=== PATIENT | male | born 1955 | race Caucasian/White ===

== ENCOUNTER 2023-12-09 11:58 | Outpatient (OUT) | payer MEDICARE, BC, SELFPAY ==
[2023-12-09 12:35] LABS: Basophils Absolute Auto 0.1 10^3/uL (0.0-0.1); Basophils Percent Auto 1.1 % (0.2-2.0); Eosinophils Absolute Auto 0.2 10^3/uL (0.0-0.7); Eosinophils Percent Auto 2.3 % (0.9-7.0); Hematocrit 41.3 % (42.0-54.0); Hemoglobin 12.6 g/dL (14.0-18.0); Immature Granulocytes Abs Auto 0.03 10^3/uL (0.00-0.03); Immature Granulocytes Pct Auto 0.3 % (0.0-0.5); Lymphocytes Absolute Auto 2.6 10^3/uL (1.2-3.8); Lymphocytes Percent Auto 25.7 % (20.5-60.0); Mean Corpuscular HGB Conc 30.5 g/dL (29.9-35.2); Mean Corpuscular Hemoglobin 27.9 pg (25.9-34.0); Mean Corpuscular Volume 91.6 fL (80.0-94.0); Mean Platelet Volume 10.9 fL (9.5-13.5); Monocytes Absolute Auto 0.6 10^3/uL (0.3-0.8); Monocytes Percent Auto 5.6 % (1.7-12.0); Neutrophils Absolute Auto 6.5 10^3/uL (1.4-6.5); Platelet Count 224 10^3/uL (150-450); Red Blood Count 4.51 10^6/uL (4.70-6.10); Red Cell Distribution Width 14.5 % (11.0-15.0)
[2023-12-09 12:40] LABS: Creatinine Urine Random 214.48 mg/dL (20.00-300.00); Microalbum Creatinine Ratio Ur 27.5 mg/g (0.0-29.9); Microalbumin Urine Random 5.9 mg/dL (<=30.0)
[2023-12-09 14:30] LABS: Prostate Specific Antigen Dx 0.33 ng/mL (<=4.00)
[2023-12-09 15:24] LABS: Anion Gap 12.9; Carbon Dioxide 27.3 mmol/L (21.0-32.0); Chloride 107 mmol/L (98-107); Potassium 4.2 mmol/L (3.5-5.1); Sodium 143 mmol/L (136-145)
[2023-12-09 15:25] LABS: Alanine Aminotransferase 45 U/L (16-63); Albumin Globulin Ratio 0.8; Albumin Level 3.6 g/dL (3.4-5.0); Alkaline Phosphatase 58 U/L (46-116); Aspartate Amino Transferase 24 U/L (15-37); Bilirubin Total 0.3 mg/dL (0.2-1.0); Calcium 9.2 mg/dL (8.5-10.1); Chol HDL Ratio 3.5; Cholesterol 154 mg/dL (<=200); Estimated GFR (African America >60 (>=60); Estimated GFR (Non-African Ame 57 (>=60); Globulin 4.5 g/dL; Glucose 105 mg/dL (74-106); HDL Cholesterol 44 mg/dL (40-60); TSH W/ REFLEX FT4 1.395 uIU/mL (0.358-3.740); Total Protein 8.1 g/dL (6.4-8.2); Triglycerides 98 mg/dL (<=150); VLDL CHOLESTEROL 19.6 mg/dL
== END 2023-12-09 11:59 | disposition home or self-care (01) ==
LOC: LAB 12:01
PROVIDERS: PCP Internal Medicine; Visit Provider Internal Medicine
DX: E11.59 Type 2 diabetes mellitus with other circulatory complications (principal); E66.01 Morbid (severe) obesity due to excess calories; Z68.41 Body mass index [BMI] 40.0-44.9, adult; N18.31 Chronic kidney disease, stage 3a; Z95.1 Presence of aortocoronary bypass graft; Z12.5 Encounter for screening for malignant neoplasm of prostate
CPT/HCPCS: 36415; 80053; 80061; 82043; 82570; 84153; 84443; 85025

== ENCOUNTER 2024-06-21 12:45 | Outpatient (OUT) | payer MEDICARE, BC, SELFPAY ==
--- OUTSIDE RECORDS SUMMARY | 2024-06-21 13:04 | XMS_ITS | CCD ---
Author Organization [facility] Care Team Providers Care Wound/Ostomy Nurse Name Role Phone PHYSICIAN, DEFAULT Admitting Unavailable PHYSICIAN, DEFAULT Attending Unavailable PHYSICIAN, DEFAULT Admitting Unavailable PHYSICIAN, DEFAULT Attending Unavailable PHYSICIAN, DEFAULT Admitting Unavailable PHYSICIAN, DEFAULT Attending Unavailable PHYSICIAN, DEFAULT Admitting Unavailable PHYSICIAN, DEFAULT Attending Unavailable PHYSICIAN, DEFAULT Admitting Unavailable PHYSICIAN, DEFAULT Attending Unavailable BENJI ROSA Primary Care Physician FADYHAWYadira, DR RODRIGUEZ Attending Unavailable ELTAHAWY, DR RODRIGUEZ Admitting Unavailable KELSEY, DR NORMAN Primary Care Unavailable HORTON, DR GEOFFREY Edmond Consulting Unavailable ELTAHAWY, DR RODRIGUEZ Consulting Unavailable ELTAHAWY, DR RODRIGUEZ Attending Unavailable ELTAHAWY, DR RODRIGUEZ Admitting Unavailable KELSEY, DR NORMAN Primary Care Unavailable KELSEY, DR NORMAN Consulting Unavailable ELTAHAWY, DR RODRIGUEZ Attending Unavailable ELTAHAWY, DR RODRIGUEZ Admitting Unavailable KELSEY, DR NORMAN Primary Care Unavailable ELTAHAWYadira, DR RODRIGUEZ Consulting Unavailable ELTAHAWY, DR RODRIGUEZ Consulting Unavailable ELTAHAWY, DR RODRIGUEZ Attending Unavailable ELTAHAWY, DR RODRIGUEZ Admitting Unavailable KELSEY, DR NORMAN Primary Care Unavailable Benji Rosa MD Primary Care Provider Ginger Simmons Admitting Unavailable Ginger Simmons Attending Unavailable Ginger Simmons Attending Unavailable Ginger Simmons Attending Unavailable Ginger Simmons Admitting Unavailable Ginger Simmons Attending Unavailable BENJI ROSA Attending Unavailable BENJI ROSA Attending Unavailable BENJI ROSA Attending Unavailable ROMINA SANDOVAL Referring Unavailable ELTAHAWYadira, ROMINA Attending Unavailable Allergies Allergy Classification Reported Allergen(s) Allergy Type Date of Onset Reaction(s) Facility (8 sources) Amoxicillin; Translations: [amoxicillin] Drug Allergy Eruption due to drug (disorder) [facility] (9 sources) meloxicam; Translations: [meloxicam] Drug Allergy 9 Rash [facility] (8 sources) Penicillin; Translations: [penicillin] Drug Allergy rash [facility] (1 source) meloxicam Drug Allergy [facility] (2 sources) Penicillins; Translations: [PENICILLINS] Drug allergy (disorder) 9 [facility] (5 sources) meloxicam Drug Allergy 9 Unknown, Rash [facility] (5 sources) Penicillins Drug Intolerance 9 Rash, Unknown [facility] Medications Current Medications Medication Drug Class(es) Dates Sig (Normalized) Sig (Original) apixaban 5 mg oral tablet (12 sources) Factor Xa Inhibitor Start: 01-03-2020 End: 12-06-2024 take 1 tablet by mouth twice daily Eliquis 5 mg oral tablet 5 mg = 1 tab(s), Oral, BID, Refills(s) 0, Blood Thinner Start Date: 01/03/20 Status: Ordered aspirin 81 mg delayed release oral tablet (4 sources) Platelet Aggregation Inhibitor, Nonsteroidal Anti-inflammatory Drug End: 12-09-2023 take 1 tablet by mouth every other day aspirin 81 MG EC tablet Take 81 mg by mouth every other day 0 12/09/2023 Discontinued (Therapy completed) bifidobacterium infantis 4 mg oral capsule (4 sources) Start: 12-30-2023 take 1 capsule by mouth once daily Align 4 mg oral capsule 4 mg = 1 cap(s), Oral, Daily, # 28 cap(s), Refills(s) 4, Pharmacy: [facility]/pharmacy #[id number], 167, cm, 12/30/23 9:02:00 EST, Height/Length Dosing, 123, kg, 12/30/23 9:02:00 EST, Weight Dosing Start Date: 12/30/23 Status: Ordered cholestyramine resin 4000 mg powder for oral suspension (4 sources) Bile Acid Sequestrant Start: 12-30-2023 Questran 4 g/9 g oral powder = 1 packet(s), Oral, Daily, # 60 EA, Refills(s) 2, Pharmacy: [facility]/pharmacy #[id number], 167, cm, 12/30/23 9:02:00 EST, Height/Length Dosing, 123, kg, 12/30/23 9:02:00 EST, Weight Dosing Start Date: 12/30/23 Status: Ordered 24 hr dilTIAZem hydrochloride 240 mg extended release oral capsule (12 sources) Calcium Channel Yvan Start: 02-03-2023 take 1 capsule by mouth every twenty-four hours in the morning dilTIAZem ER (Tiazac) 240 MG 24 hr capsule Take 240 mg by mouth in the morning. 0 02/03/2023 Active Start: 01-03-2020 Cardizem CD 24 0 mg/24 hours Cap-ER 240 mg = 1 cap(s), Oral, Daily, Refills(s) 0, Other (see comment) Start Date: 01/03/20 Status: Ordered Start: 01-03-2020 take 1 capsule by mo [facility] once daily Cardizem CD 240 mg/24 hours Cap-ER mg cap(s), Oral, Daily, Refills(s) 0, Other (see comment) Start Date: 01/03/20 Status: Ordered famotidine 20 mg oral tablet (12 sources) Histamine-2 Receptor Antagonist Start: 05-17-2020 take 1 tablet by mouth once daily as needed famotidine 20 mg Tab 20 mg = 1 tab(s), Oral, Daily, PRN Control of stomach acid, Control of stomach acid Start Date: 05/17/20 Status: Ordered furosemide 20 mg oral tablet (19 sources) Loop Diuretic Start: 02-03-2023 take 1 tablet by mouth in the morning furosemide (Lasix) 20 MG tablet Take 20 mg by mouth in the morning. 0 02/03/2023 Active Start: 05-27-2020 Lasix 40 mg Ta b 20 mg = 0.5 tab(s), Oral, qPM, diuretic/water pill Start Date: 05/27/20 Status: Ordered Start: 01-03-2020 take 1 tablet by donna once daily Lasix 40 mg Tab 40 mg = 1 tab(s), Oral, Daily, Refills(s) 0, diuretic/water pill Start Date: 01/03/20 Status: Ordered latanoprost 0.05 mg/ml ophthalmic solution (5 sources) Prostaglandin Analog Start: 11-04-2023 take 1 drop(s) into the eye(s) at bedtime latanoprost (Xalatan) 0.005 % ophthalmic solution Administer 1 drop into both eyes at bedtime 0 11/04/2023 Active metFORMIN hydrochloride 500 mg / SITagliptin 50 mg oral tablet (5 sources) Biguanide, Dipeptidyl Peptidase 4 Inhibitor SITagliptin-metFORMI N (Janumet) 50-500 MG tablet every 12 (twelve) hours. 0 Active polyethylene glycol 3350 281494 mg / potassium chloride 1480 mg / sodium bicarbonate 5720 mg / sodium chloride 28937 mg powder for oral solution (2 sources) Osmotic Laxative Start: 10-28-2022 NuLYTELY Jesus oral powder for reconstitution See Instructions, 1 EA, Refill(s) 0, See physician instructions prior to colonoscopy., [facility]/pharmacy #[id number], 168.9, cm, 10/28/22 8:24:00 EST, Height/Length Dosing, 115.4, kg, 10/28/22 8:24:00 EST, Weight Dosing Start Date: 10/28/22 Status: Ordered rosuvastatin calcium 10 mg oral tablet (7 sources) HMG-CoA Reductase Inhibitor Start: 01-03-2020 take 1 tablet by mouth once daily Crestor 10 mg Tab 10 mg = 1 tab(s), Oral, Daily, Refills(s) 0, High cholesterol Start Date: 01/03/20 Status: Ordered simvastatin 40 mg oral tablet (5 sources) HMG-CoA Reductase Inhibitor Start: 03-23-2023 take 1 tablet by mouth at bedtime simvastatin (Zocor) 40 MG tablet Indications: Pure hypercholesterolemia (CMS/HCC) Take 1 tablet (40 mg) by mouth at bedtime. 100 tablet 4 03/23/2023 Active traZODone hydrochloride 50 mg oral tablet (12 sources) Serotonin Reuptake Inhibitor Start: 10-04-2023 traZODone (Desyrel) 50 MG tablet Indications: Persistent insomnia TAKE 1/2 TABLET AT BEDTIME 45 tablet 3 10/04/2023 Active Start: 10-28-2022 take 1 tablet by donna once daily at bedtime traZODONE 50 mg Tab 50 mg = 1 tab(s), Oral, Once a day (at bedtime), Refills(s) 0, Depression Start Date: 10/28/22 Status: Ordered zolpidem tartrate 10 mg oral tablet (12 sources) gamma-Aminobutyric Acid-ergic Agonist Start: 01-03-2020 take 1 tablet by mouth once daily at bedtime as needed for sleep Ambien 10 mg Tab 10 mg = 1 tab(s), Oral, Once a day (at bedtime), PRN for sleep, Refills(s) 0 Start Date: 01/03/20 Status: Ordered Completed/Discontinued Medications Medication Drug Class(es) Dates Sig (Normalized) Sig (Original) potassium chloride 10 meq extended release oral capsule (12 sources) Start: 01-03-2020 take 1 capsule by mouth once daily potassium chloride 10 mEq Cap-ER 10 mEq = 1 cap(s), Oral, Daily, Refills(s) 0, Prophylaxis Start Date: 01/03/20 Status: Ordered potassium chlori de CR (Klor-Con M10) 10 MEQ ER tablet Take 10 mEq by mouth in the morning. 0 Active Problems Active Problems Problem Classification Problem Date Documented Da te Episodic/Chronic Cardiac dysrhythmias (12 sources) Atrial fibrillation; Translations: [Paroxysmal atrial fibrillation] Onset: 3 05-17-2020 Chronic Chronic kidney disease (14 sources) Chronic kidney disease stage 3; Translations: [Chronic kidney disease stage 3A ] Onset: 3 06-12-2020 Chronic Coronary atherosclerosis and other heart disease (20 sources) Coronary arteriosclerosis; Translations: [Atherosclerotic heart disease of [place] coronary artery without angina pectoris] Onset: 9 Resolved: 4 05-27-2020 Chronic Diabetes mellitus with complications (7 sources) Type 2 diabetes mellitus; Translations: [Type 2 diabetes mellitus with other circulatory complications] Onset: 3 03-23-2023 Chronic Diabetes mellitus without complication (7 sources) Diabetes mellitus 01-03-2020 Chronic Disorders of lipid metabolism (14 sources) Hypercholesterolemia; Translations: [Pure hypercholesterolemia] Onset: 3 01-03-2020 Chronic Diverticulosis and diverticulitis (10 sources) Diverticulosis of colon; Translations: [Diverticulosis of large intestine without perforation or abscess without bleeding] Onset: 8 03-23-2023 Chronic Esophageal disorders (14 sources) Gastroesophageal reflux disease without esophagitis; Translations: [Gastro-esophageal reflux disease without esophagitis] Onset: 1 Chronic Gastrointestinal hemorrhage (15 sources) Hemorrhage of rectum and anus; Translations: [Hemorrhage of anus and rectum] Onset: 3 Episodic Genitourinary symptoms and ill-defined conditions (20 sources) Increased frequency of urination; Translations: [Microscopic hematuria] Onset: 3 06-12-2020 Episodic Glaucoma (12 sources) Glaucoma; Translations: [Unspecified glaucoma] Onset: 3 01-03-2020 Chronic Heart valve disorders (8 sources) Rheumatic disorders of both mitral and aortic valves; Translations: [Non-rheumatic mitral regurgitation ] Onset: 3 12-07-2023 Chronic Heart valve disorders (7 sources) Heart murmur 01-03-2020 Episodic Hemorrhoids (12 sources) Hemorrhoids; Translations: [Unspecified hemorrhoids] Onset: 3 Episodic Neoplasms of unspecified nature or uncertain behavior (7 sources) Adrenal incidentaloma 06-12-2020 Episodic Osteoarthritis (12 sources) Arthritis; Translations: [Unspecified osteoarthritis, unspecified site] Onset: 3 01-03-2020 Chronic Other acquired deformities (5 sources) Equinus contracture of the ankle; Translations: [Contracture, unspecified ankle] Onset: 3 03-23-2023 Chronic Other aftercare (3 sources) Long-term current use of anticoagulant; Translations: [long term acute care registered nurse (current) use of anticoagulants] Onset: 3 Episodic Other and ill-defined heart disease (7 sources) Heart disease 01-03-2020 Chronic Other and unspecified benign neoplasm (13 sources) History of polyp of colon; Translations: [Personal history of colonic polyps] Onset: 3 10-15-2022 Episodic Other and unspecified benign neoplasm (8 sources) Polyp of colon; Translations: [Polyp of colon] Onset: 3 Episodic Other ear and sense organ disorders (5 sources) Otitis externa; Translations: [Unspecified otitis externa, unspecified ear] Onset: 3 03-23-2023 Chronic Other ear and sense organ disorders (5 sources) Sensorineural hearing loss, bilateral; Translations: [Sensorineural hearing loss, bilateral] Onset: 3 03-23-2023 Chronic Other endocrine disorders (5 sources) Adrenal incidentaloma; Translations: [Other specified disorders of adrenal gland] Onset: 3 12-07-2023 Chronic Other gastrointestinal disorders (1 source) Intestinal malabsorption; Translations: [Intestinal malabsorption, unspecified] Onset: 4 Chronic Other gastrointestinal disorders (10 sources) H/O: gastrointestinal disease; Translations: [Personal history of other diseases of the digestive system] Onset: 4 10-15-2022 Episodic Other gastrointestinal disorders (7 sources) History of diverticulitis 10-15-2022 Episodic Other gastrointestinal disorders (7 sources) History of gastroesophageal reflux disease 10-15-2022 Episodic Other gastrointestinal disorders (1 source) Angiodysplasia of colon; Translations: [Angiodysplasia of colon without hemorrhage] Onset: 3 Episodic Other gastrointestinal disorders (1 source) Diarrhea; Translations: [Diarrhea, unspecified] Onset: 4 Episodic Other gastrointestinal disorders (1 source) Altered bowel function; Translations: [Change in bowel habit] Onset: 4 Episodic Other lower respiratory disease (4 sources) Shortness of breath; Translations: [SHORTNESS OF BREATH] Onset: 3 Episodic Other lower respiratory disease (1 source) Dyspnea, unspecified; Translations: [DYSPNEA UNSPECIFIED] Onset: 3 Episodic Other nervous system disorders (5 sources) Carpal tunnel syndrome; Translations: [Carpal tunnel syndrome, unspecified upper limb] Onset: 3 03-23-2023 Chronic Other nutritional; endocrine; and metabolic disorders (5 sources) Severe obesity; Translations: [Morbid (severe) obesity due to excess calories] Onset: 4 12-09-2023 Chronic Other nutritional; endocrine; and metabolic disorders (1 source) Metabolic syndrome X; Translations: [Metabolic syndrome] Onset: 4 Chronic Other upper respiratory disease (5 sources) Chronic rhinitis; Translations: [Chronic rhinitis] Onset: 3 03-23-2023 Chronic Other upper respiratory disease (5 sources) Seasonal allergic rhinitis; Translations: [Other seasonal allergic rhinitis] Onset: 3 03-23-2023 Chronic Poisoning by other medications and drugs (7 sources) Loop diuretic adverse reaction 06-12-2020 Episodic Residual codes; unclassified (7 sources) Sleep apnea 05-27-2020 Chronic Comment on above: uses CPAP Residual codes; unclassified (5 sources) Obstructive sleep apnea syndrome; Translations: [Obstructive sleep apnea (adult) (pediatric)] Onset: 3 03-23-2023 Chronic Residual codes; unclassified (7 sources) Creatinine level - finding 06-12-2020 Episodic Screening and history of mental health and substance abuse codes (12 sources) Ex-smoker; Translations: [Personal history of nicotine dependence] Onset: 3 04-17-2020 Episodic Unclassified (7 sources) Drug therapy finding 06-12-2020 Past or Other Problems Problem Classification Problem Date Documented Date Episodic/Chronic Other aftercare (5 sources) Drug therapy finding; Translations: [MCFP (current) use of anticoagulants] Onset: 11-02-2022 12-07-2023 Episodic Other ear and sense organ disorders (5 sources) Bilateral tinnitus; Translations: [Tinnitus, bilateral] Onset: 03-23-2023 03-23-2023 Episodic Other ear and sense organ disorders (5 sources) Tinnitus; Translations: [Tinnitus, unspecified ear] Onset: 03-23-2023 03-23-2023 Episodic Other lower respiratory disease (1 source) Other forms of dyspnea; Translations: [OTHER FORMS OF DYSPNEA] Onset: 11-16-2022 Episodic Other screening for suspected conditions (not mental disorders or infectious disease) (7 sources) Cardiovascular stress test abnormal; Translations: [Abnormal result of other cardiovascular function study] Onset: 12-16-2018 12-07-2023 Episodic Sarah-; endo-; and myocarditis; cardiomyopathy (except that caused by tuberculosis or sexually transmitted disease) (5 sources) Pericardial effusion; Translations: [Pericardial effusion without cardiac tamponade] Onset: 08-08-2019 12-07-2023 Episodic Residual codes; unclassified (5 sources) Edema of lower extremity; Translations: [Localized edema] Onset: 03-23-2023 03-23-2023 Episodic Residual codes; unclassified (5 sources) Persistent insomnia; Translations: [Insomnia, unspecified] Onset: 07-16-2008 03-23-2023 Episodic Results Test Name Value Interpretation Reference Range Facility Office Visiton 05-29-2024 Follow-up visit [id number] Celestino Patton Bryn 1955 M Date Provider Department Center 05/29/2024 [id number] ROMINA SAILAJA Aleman Family History Problem Relation Age of Onset Coronary artery disease Mother Diabetes Father Family Status - Relation Status Age at Mother Father Level of Service:11498 [place] OFFICE/OUTPATIENT ESTABLISHED MOD MDM 30 MIN Normal [facility] Gastroenterology Office/Clin ic Noteon 02-10-2024 Gastroenterology Office/Clinic Note Chief Complaint diarrhea - is now having more constipation HPI Staff This is a 68 year old male who presents today for a follow-up from 12/30/23 office visit and lab results No longer having diarrhea - he states it is starting to get hard and feels more bound up . Still taking Eliquis daily. Stool Testin01/18/2024 Fecal WBC Lactoferrin * Negative Reference Laboratory Testing Antigliadin IgA * 6 unit(s) Antigliadin IgG * 4 unit(s) Calprotectin, Fecal * 18 mcg/gm Endomysial Antibody IgA Negative IgA Quant * 296 mg/dL Ova/Para Exam Rt * Final report Result 1 * Comment Pancreatic Elastase, Fecal * 250 t-Transglutaminase IgA * <2 unit/mL t-Transglutaminase IgG * 4 unit/mL Molecular Diagnostics Campylobacter group * Not Detected Salmonella species * Not Detected Shigella species Not Detected Shiga Toxin 1 Not Detected Shiga Toxin 2 Not Detected Shiga Tox Interp Negative Vibrio Group Not Detected Rotavirus A Not Detected Norovirus GI/GII Not Detected Yersinia enterocolitica Not Detected Cdiff Specimen Acceptable Unacceptable Order Cancelled YES Celiac Panel Antigliadin IgA: 6 (12/30/23) Antigliadin Ig (12/30/23) Endomysial Antibody IgA: Negative (12/30/23) IgA Quant: 296 (12/30/23) t-Transglutaminase IgA: <2 (12/30/23) t-Transglutaminase Ig (12/30/23) Dr Simmons Assessment/Plan: 12/30/2023 1. 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 Anticoagulated (Z79.01: MCFP (current) use of anticoagulants) 3. Colon polyps (K63.5: Polyp of colon) 4. Hemorrhoids (K64.9: Unspecified hemorrhoids) 5. History of diverticulitis of colon, (Z87.19: Personal history of other diseases of the digestive system)History of esophageal reflux 7. Metabolic syndrome (E88.810: Metabolic syndrome) Diarrhea, unspecified (R19.7: Diarrhea, unspecified) Orders: bifidobacterium infantis, 4 mg = 1 cap(s), Oral, Daily, # 28 cap(s), Refills(s) 4, Pharmacy: [facility]/pharmacy #[id number], 167, cm, 12/30/23 9:02:00 EST, Height/Length Dosing, 123, kg, 12/30/23 9:02:00 EST, Weight Dosing cholestyramine, = 1 packet(s), Oral, Daily, # 60 EA, Refills(s) 2, [id number] 167, cm, 12/30/23 9:02:00 EST, Height/Length Dosing, 123, kg, 12/30/23 9:02:00 EST, Weight Dosing Start Questran once a day and titrate up to twice a day. Advised to space it out from other medications by 4 hours probiotics daily Check celiac panel, ova and parasites in the stool, C. difficile, stool calprotectin, pancreatic elastase, and stool lactoferrin Might benefit from a course of rifaximin and if he does not respond Advised to use Imodium as needed Advised to work on losing weight and eating healthy History of Present Illness I have reviewed HPI staff note, most recent labs and imaging, more than 30 minutes spent reviewing the chart, during encounter, placing orders and counseling the patient. Pt is doing well diarrhea resolved but getting some constipation on align and questran moves his bowels once every day or other day Review of Systems PHQ Score Initial Depression Screen Score: 0 SCORE All systems reviewed, negative except as mentioned above Physical Exam Vitals & Measurements HR: 76(Peripheral) BP: 122/70 HT: 66 in HT: 167 cm WT: 124 kg WT: 272.8 lb BMI: 44.46 General: alert, no acute distress HEENT: atraumatic normocephalic Cardiovascular: regular rate and rhythm, normal peripheral perfusion Respiratory: Lungs CTA, respirations non labored Extremities: no deformity, no trauma Abdomen: Benign, soft, nontender nondistended Assessment/Plan 1. Anticoagulated (Z79.01: long term acute care registered nurse (current) use of anticoagulants) 2. Acid reflux (K21.9: Gastro-esophageal reflux disease without esophagitis) 3. Colon polyps (K63.5: Polyp of colon) 4. History of colon polyps (Z86.010: Personal history of colonic polyps) 5. History of diverticulosis (Z87.19: Personal history of other diseases of the digestive system) 6. Altered bowel habits (R19.4: Change in bowel habit) Advised the patient to cut down the dose of Questran to every other day Continue align Follow-up No qualifying data available Problem List/Past Medical History Ongoing Acid reflux Adrenal incidentaloma Anticoagulated Apnea, sleep Arthritis CAD (coronary artery disease) CKD (chronic kidney disease), stage III Colon polyps Diabetes Former smoker Glaucoma Heart disease Heart murmur Hemorrhoids High cholesterol High creatinine History of colon polyps History of diverticulitis of colon History of diverticulosis History of esophageal reflux Loop diuretic causing adverse effect in therapeutic use Microhematuria Microscopic hematuria Nocturia Rectal bleeding Urinary complication Urinary frequency Urinary urgency Historical A-fib Bleeding per rectum Procedure/Surgical History Colonoscopy (12/07/2022), Cystoscopy (05/27/2020), Cardiac catheterisation (12/15 (more content not included)... Normal [facility] Comment on above: Result Comment: Elec tronically Signed By: Troy HOLDEN, Ginger Abebe\.br\Date and Time Signed: 02/10/24 08:53 EDT O & P EXAM, ROUTINE, REFLEXo n 01-27-2024 Ova and parasites identified Concentration Nom (Stl) Comment Invalid Interpretation Code [facility] Comment on above: Result Comment: No o va, cysts, or parasites seen. One negative specimen does not rule out the possibility of a parasitic infection. Performed at: [facility] [id number] PhD Katelyn Hahn Performed By: #### 3 [id number] ####[facility] [id number] [place] [address] O & P Exam, Routineon 2023 Ova and parasites identified LM Nom (Unsp spec) Final report Invalid Interpretation Code [facility] Comment on above: Result Comment: Thes e results were obtained using wet preparation(s) and trichrome stained smear. This test does not include testing for Cryptosporidium parvum, Cyclospora, or Microsporidia. Performed at: [address] [id number] PhD Katelyn Hahn Performed By: #### 3 [id number] ####[facility] [id number] [place] [address] Pancreatic Elastase, Fecalon 01-27-2024 Elastase.pancreatic (Stl) [Mass/Mass] 250 Invalid Interpretation Code >200 [facility] Comment on above: Result Comment: Kalli re Pancreatic Insufficiency: <100 Moderate Pancreatic Insufficiency: 100 - 200 Normal: >200 Performed at: [address] [id number] MD Parminder Arita Performed By: #### 3 [id number] ####[facility] [id number] [place] [address] Calprotectin, Fecalon 2023 Calprotectin (Stl) [Mass/Mass] 18 mcg/gm Invalid Interpretation Code 0-120 [facility] Comment on above: Result Comment: Conc entration Interpretation Follow-Up < 5 - 50 ug/g Normal None >50 -120 ug/g Borderline Re-evaluate in 4-6 weeks >120 ug/g Abnormal Repeat as clinically indicated Performed at: [address] [id number] MD Parminder Arita Performed By: #### 1 [id number] #### [facility] [address] [place] [address] Enteric Panel by PCRon 01-18 C. coli+jejuni+upsalien sis DNA GHULAM+non-probe Ql (Stl) Not detected Normal [facility] Comment on above: Result Comment: Test ing was performed utilizing reverse room service food server (RT), polymerase chain reaction (PCR), and array hybridization to detect specific gastrointestinal microbial nucleic acid gene sequences associated with the following pathogenic bacteria and viruses:Campylobacter Group (composed of C. coli, C. jejuni, and C. guillermo), Salmonella species, Shigella species (including S. dysenteriae, S. boydii, S. sonnei and S. flexneri), Vibrio Group (composed of V. cholera and V. parahaemolyticus), Yersinia enterocolitica, Norovirus GI/GII, and Rotavirus A. In addition, EPdetects Shiga toxin 1 gene and Shiga toxin 2 gene virulence markers. Shiga toxin producing E. coli (STEC) typically harbor one or both genes that encode for Shiga toxins 1 and 2. Campylobacter group, Salmonella species, Shigella species, Vibrio group, Rotavirus A, Shiga Toxin 1, Shiga Toxin 2, Norovirus GI/GII, and Yersinia enterocolitica were tested by Verigene nulcleic acid test. Performed By: #### 3 [id number], [id number], [id number], [id number], [id number], [id number] ####[facility] [address] [place] [address] E. coli stx1+stx2 genes GHULAM+non-probe Ql (Stl) Negative Normal [facility] Comment on above: Performed By: #### 3 [id number], [id number], [id number], [id number], [id number], [id number] ####[facility] [address] [place] [address] Enteric Panel by PCR Negative Normal [facility] Enteric Panel Intrl QC Pass Normal [facility] Comment on above: Result Comment: Test ing was performed utilizing reverse room service food server (RT), polymerase chain reaction (PCR), and array hybridization to detect specific gastrointestinal microbial nucleic acid gene sequences associated with the following pathogenic bacteria and viruses:Campylobacter Group (composed of C. coli, C. jejuni, and C. guillermo), Salmonella species, Shigella species (including S. dysenteriae, S. boydii, S. sonnei and S. flexneri), Vibrio Group (composed of V. cholera and V. parahaemolyticus), Yersinia enterocolitica, Norovirus GI/GII, and Rotavirus A. In addition, EPdetects Shiga toxin 1 gene and Shiga toxin 2 gene virulence markers. Shiga toxin producing E. coli (STEC) typically harbor one or both genes that encode for Shiga toxins 1 and 2. Performed By: #### 3 [id number], [id number], [id number], [id number], [id number], [id number] ####[facility] [address] [place] [address] Norovirus genogroup I+II RNA GHULAM+non-probe Ql (Stl) Not detected Normal [facility] Comment on above: Performed By: #### 3 [id number], [id number], [id number], [id number], [id number], [id number] ####[facility] [address] [place] [address] Rotavirus A RNA GHULAM+non-probe Ql (Stl) Not detected Normal [facility] Comment on above: Performed By: #### 3 [id number], [id number], [id number], [id number], [id number], [id number] ####[facility] [address] [place] [id number] S. enterica+bongori DNA GHULAM+non-probe Ql (Stl) Not detected Normal [facility] Comment on above: Result Comment: This test result should be correlated with clinical presentations and medical history by a healthcare provider to determine its clinical significance. Performed By: #### 3 [id number], [id number], [id number], [id number], [id number], [id number] ####[facility] [address] [place] [address] Shigella species+EIEC invasion plasmid antigen H ipaH gene GHULAM+non-probe Ql (Stl) Not detected Normal [facility] Comment on above: Performed By: #### 3 [id number], [id number], [id number], [id number], [id number], [id number] ####[facility] [address] [place] [address] V. cholerae+parahaemoly ticus+vulnificus DNA GHULAM+non-probe Ql (Stl) Not detected Normal [facility] Comment on above: Performed By: #### 3 [id number], [id number], [id number], [id number], [id number], [id number] ####[facility] [address] [place] [address] Y. enterocolitica DNA GHULAM+non-probe Ql (Stl) Not detected Normal [facility] Comment on above: Performed By: #### 3 [id number], [id number], [id number], [id number], [id number], [id number] ####[facility] [address] [place] [address] CDiff PCRon 01-18-2024 C. difficile toxin A+B Ql (Stl) YES Normal [facility] Comment on above: Performed By: #### 3 [id number], [id number], [id number], [id number], [id number], [id number] #### [facility] [address] [place] [address] CDiff PCR Unable to perform test due to consistency of stool. C. Difficile testing will only be performed on diarrheal (unformed) stool unless ileus due to C. difficile is expected. Reference: Clinical Practice Guidelines for Clostridium difficile Infection in Adults, Infection and Hospital Epidemiology February 2010, Vol 31, No 5. Normal [facility] Fecal WBC Lactoferrinon 12-24 Lactoferrin Ql (Stl) Negative Normal Negative [facility] Comment on above: Result Comment: The semi-quantitative detection of elevated levels of fecal lactoferrin is a marker for fecal leukocytes and an indication of intestinal inflammation. Performed By: #### 3 [id number], [id number], [id number], [id number], [id number], [id number] #### [facility] [address] [place] [address] MICRO OTHER TESTSOrdered By: Jacqueline Frias on 01-18-2024 Lactoferrin Ql (Stl) Negative 1 (01/18/24 2:45 PM) Normal Negative [facility] Comment on above: Interpretive Data: T carol semi-quantitative detection of elevated levels of fecal lactoferrin is a marker for fecal leukocytes and an indication of intestinal inflammation. Celiac Disease Comprehensive on 12-31-2023 Endomysium IgA Ql (S) Negative Invalid Interpretation Code Negative [facility] Comment on above: Performed By: #### 1 [id number] #### [facility] [address] [place] [address] Gliadin peptide IgA Qn (S) 6 unit(s) Invalid Interpretation Code 0-19 [facility] Comment on above: Result Comment: Nega tive 0 - 19 Weak Positive 20 - 30 Moderate to Strong Positive >30 Performed By: #### 1 [id number] #### [facility] [address] [place] [address] Gliadin peptide IgG Qn (S) 4 unit(s) Invalid Interpretation Code 0-19 [facility] Comment on above: Result Comment: Nega tive 0 - 19 Weak Positive 20 - 30 Moderate to Strong Positive >30 Performed By: #### 1 [id number] #### [facility] [address] [place] [address] IgA [Mass/Vol] 296 mg/dL Invalid Interpretation Code 61-437 [facility] Comment on above: Result Comment: Perf ormed at: [facility] [address] [id number] PhD Katelyn Hahn Performed By: #### 1 [id number] #### [facility] [address] [place] [address] tTG IgA Qn (S) <2 Invalid Interpretation Code 0-3 [facility] Comment on above: Result Comment: Nega tive 0 - 3 Weak Positive 4 - 10 Positive >10 Tissue Transglutaminase (tTG) has been identified as the endomysial antigen. Studies have demonstr- ated that endomysial IgA antibodies have over 99% specificity for gluten sensitive enteropathy. Performed By: #### 1 [id number] #### [facility] [address] [place] [address] tTG IgG Qn (S) 4 unit/mL Invalid Interpretation Code 0-5 [facility] Comment on above: Result Comment: Nega tive 0 - 5 Weak Positive 6 - 9 Positive >9 Performed By: #### 1 [id number] #### [facility] [address] [place] [address] Ambulatory Visit Summaryon 0 12-30-2023 Ambulatory Visit Summary CELESTINO PATTON Bryn :1955 Visit Date:12/30/2023 Ambulatory Visit Instructions Your Diagnosis Diarrhea due to malabsorption Anticoagulated Colon polyps Hemorrhoids History of diverticulitis of colon, History of esophageal reflux Metabolic syndrome Diarrhea, unspecified Your Care Team Attending Physician - Ginger Simmons MD. Primary Care Physician - BENJI ROSA MD This Is Your Medications List bifidobacterium infantis (Align 4 mg oral capsule) cholestyramine (Questran 4 g/9 g oral powder) Contact prescribing physician if questions or concerns apixaban (Eliquis 5 mg oral tablet) diltiazem (Cardizem CD 240 mg/24 hours Cap-ER) famotidine (famotidine 20 mg Tab) furosemide (Lasix 40 mg Tab) furosemide (Lasix 40 mg Tab) potassium chloride (potassium chloride 10 mEq Cap-ER) rosuvastatin (Crestor 10 mg Tab) trazodone (traZODONE 50 mg Tab) zolpidem (Ambien 10 mg Tab) Procedures Performed Colonoscopy (12/07/2022), Cystoscopy (05/27/2020), Cardiac catheterisation (12/15/2018), Open heart surgery (11/2018), Biliary tract reconstruction (1981), Colonoscopy. Discharge Vitals Heart Rate (Peripheral) 78 Respiratory Rate 16 Blood Pressure 114/75 Height 167 cm Height 66 in Weight 123 kg Weight 270.6 lb BMI 44.1 What to do next Scheduled Follow-Up Appointments 2023 8:15 AM EDT With: Troy HOLDEN, Ginger Abebe Where: [facility] Normal [facility] Consent for Treatmenton Consent for Treatment [phone] #1.00TIFF Normal [facility] Gastroenterology Office/Clin ic Noteon 12-30-2023 Gastroenterology Office/Clinic Note Chief Complaint diarrhea and burping HPI Staff This is a 68 year old male who presents today for a sick call for complaints of diarrhea. Diarrhea: How many BM a day (normal <4): 5-6 times When did it start: Month Constant? Or alternate with normal BM or constipation: Won't go for about two days and then diarrhea. has not tried anything OTC. Associated symptoms: no has been burping a lot more recently. had blood one night, has history of hemorrhoids. Last visit w/ Noemi 12/2022 Assessment/Plan 1. Colon polyps (K63.5: Polyp of colon) Colonoscopy completed 12/07/2022 revealed 2 moderate sized AVMs in cecum and ascending colon that were treated with APC, tubulovillous adenoma and tubular adenoma removed from the ascending colon, tubular adenoma removed from descending colon, hemorrhoids. Educated regarding fiber supplementation daily (metamucil) 1 capsule daily- separate 2 hours from other medications. Patient to have repeat colonoscopy in 3 years?2025. 2. Hemorrhoids (K64.9: Unspecified hemorrhoids) see #1 Last colon 12/07/22 w/ Dr Aguilar Impression and Plan 1. 2 moderate-sized AVMs, in the cecum and proximal ascending, both treated successfully with APC 2. 2 sessile polyps, 5 and 10 mm, in the ascending colon, both removed with cold snare, a mid rectum was placed at the larger polypectomy site 3. Sessile polyp, 5 mm, in the descending colon, removed completely with cold snare 4. Moderate nonbleeding internal hemorrhoids with stigmata of recent bleeding Recommendations: Repeat colonoscopy:: In 3 years, Pending pathology results. History of Present Illness pt with diarrhea half hour after eating comes and goes no triggers ?thought to be related to djiboutian food described as watery stool, 5-6 times a day no stool tests I have reviewed HPI staff note, most recent labs and imaging, more than 30 minutes spent reviewing the chart, during encounter, placing orders and counseling the patient. Review of Systems PHQ Score Initial Depression Screen Score: 0 SCORE All systems reviewed, negative except as mentioned above Physical Exam Vitals & Measurements HR: 78(Peripheral) RR: 16 BP: 114/75 HT: 66 in HT: 167 cm WT: 123 kg WT: 270.6 lb BMI: 44.1 General: alert, no acute distress HEENT: atraumatic normocephalic Cardiovascular: regular rate and rhythm, normal peripheral perfusion Respiratory: Lungs CTA, respirations non labored Extremities: no deformity, no trauma Abdomen: Benign, soft, nontender nondistended Assessment/Plan 1. 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 Anticoagulated (Z79.01: long term acute care registered nurse (current) use of anticoagulants) 3. Colon polyps (K63.5: Polyp of colon) 4. Hemorrhoids (K64.9: Unspecified hemorrhoids) 5. History of diverticulitis of colon, (Z87.19: Personal history of other diseases of the digestive system)History of esophageal reflux 7. Metabolic syndrome (E88.810: Metabolic syndrome) Diarrhea, unspecified (R19.7: Diarrhea, unspecified) Ordered: Calprotectin, Fecal Calprotectin, Fecal Celiac Disease Comprehensive Clostridium Difficile PCR Enteric Panel by PCR Fecal WBC Lactoferrin O & P Exam, Routine Pancreatic Elastase, Fecal Orders: bifidobacterium infantis, 4 mg = 1 cap(s), Oral, Daily, # 28 cap(s), Refills(s) 4, Pharmacy: [facility]/pharmacy #[id number], 167, cm, 12/30/23 9:02:00 EST, Height/Length Dosing, 123, kg, 12/30/23 9:02:00 EST, Weight Dosing cholestyramine, = 1 packet(s), Oral, Daily, # 60 EA, Refills(s) 2, Pharmacy: [facility]/pharmacy #[id number], 167, cm, 12/30/23 9:02:00 EST, Height/Length Dosing, 123, kg, 12/30/23 9:02:00 EST, Weight Dosing Start Questran once a day and titrate up to twice a day. Advised to space it out from other medications by 4 hours probiotics daily Check celiac panel, ova and parasites in the stool, C. difficile, stool calprotectin, pancreatic elastase, and stool lactoferrin Might benefit from a course of rifaximin and if he does not respond Advised to use Imodium as needed Advised to work on losing weight and eating healthy Follow-up No qualifying data available Problem List/Past Medical History Ongoing Acid reflux Adrenal incidentaloma Anticoagulated Apnea, sleep Arthritis CAD (coronary artery disease) CKD (chronic kidney disease), stage III Colon polyps Diabetes Former smoker Glaucoma Heart disease Heart murmur Hemorrhoids High cholesterol High creatinine History of colon polyps History of diverticulitis of colon History of diverticulosis History of esophageal reflux Loop diuretic causing adverse effect in therapeutic use Microhematuria Microscopic hematuria Nocturia Rectal bleeding Urinary complication Urinary frequency Urinary urgency Historical A-fib Bleeding per rectum Procedure/Surgical History Colonoscopy (12/07/2022), Cystoscopy (05/27/2020), Cardiac catheterisation (12/15/2018), Open heart surgery (11/2018), Andrews (more content not included)... Normal [facility] Comment on above: Result Comment: Elec tronically Signed By: Troy HOLDEN, Ginger Abebe\.br\Date and Time Signed: 12/30/23 09:20 EST ALL CBC WITH AUTO DIFFon BASOPHILS ABSOLUTE AUTO 0.1 [facility] Basophils/100 WBC (Bld) 1.1 % 0.2 - 2.0 % [facility] Eosinophils/100 WBC (Bld) 2.3 % 0.9 - 7.0 % [facility] Erythrocyte distribution width (RBC) [Ratio] 14.5 % 11.0 - 15.0 % [facility] Hematocrit (Bld) [Volume fraction] 41.3 % Low 42.0 - 54.0 % [facility] Hemoglobin (Bld) [Mass/Vol] 12.6 g/dL Low 14.0 - 18.0 g/dL [facility] IMMATURE GRANULOCYTES ABS AUTO 0.03 [facility] Immature granulocytes/100 WBC (Bld) 0.3 % 0.0 - 0.5 % [facility] and review of [facility] results Abnormal [facility] LYMPHOCYTES ABSOLUTE AUTO 2.6 [facility] Lymphocytes/100 WBC (Bld) 25.7 % 20.5 - 60.0 % [facility] MCH (RBC) [Entitic mass] 27.9 pg 25.9 - 34.0 pg [facility] MCHC (RBC) [Mass/Vol] 30.5 g/dL 29.9 - 35.2 g/dL [facility] MCV (RBC) [Entitic vol] 91.6 fL 80.0 - 94.0 fL [facility] MONOCYTES ABSOLUTE AUTO 0.6 [facility] Monocytes/100 WBC (Bld) 5.6 % 1.7 - 12.0 % [facility] NEUTROPHILS ABSOLUTE AUTO 6.5 [facility] Neutrophils/100 WBC (Bld) 65.0 % 43.0 - 75.0 % [facility] Platelet mean volume (Bld) [Entitic vol] 10.9 fL 9.5 - 13.5 fL [facility] EO # 0.2 [facility] PLT [address] [facility] RBC 4.51 Low [facility] WBC 10.0 [facility] Laboratory - Hematology and Cell countson 12-09-2023 HbA1c (Bld) [Mass fraction] 6.0 % [facility] No Panel Informationon 12-09 [facility] CBC AUTO DIFFon 03-19-2023 BASO # 0.1 103/ul Normal 0.0-0.1 [facility] Comment on above: Performed By: #### C BC #### [facility] [address] [address] [address] Umer Ames Basophils/100 WBC (Bld) 0.7 % Normal 0.2-2.0 [facility] Comment on above: Performed By: #### C BC #### [facility] [address] [place] [address] [address] Umer Ames EO # 0.2 103/ul Normal 0.0-0.7 [facility] Comment on above: Performed By: #### C BC #### [facility] [address] [address] [address] Umer Ames Eosinophils/100 WBC (Bld) 2.3 % Normal 0.9-7.0 [facility] Comment on above: Performed By: #### C BC #### [facility] [address] [place] [address] Dr. Umer Ames Erythrocyte distribution width (RBC) [Ratio] 14.7 % Normal 11.0-15.0 [facility] Comment on above: Performed By: #### C BC #### [facility] [address] [place] [address] Dr. Umer Ames Hematocrit (Bld) [Volume fraction] 39.4 % Critically low 42.0-54.0 [facility] Comment on above: Performed By: #### C BC #### [facility] [address] [place] [address] Dr. Umer Ames Hemoglobin (Bld) [Mass/Vol] 12.7 g/dL Critically low 14.0-18.0 [facility] Comment on above: Performed By: #### C BC #### [facility] [address] [place] [address] Dr. Umer Ames IG # 0.03 10e3/ul Normal 0.00-0.03 [facility] Comment on above: Performed By: #### C BC #### [facility] [address] [place] [address] Dr. Umer Ames IG % 0.3 % Normal 0.0-0.5 [facility] Comment on above: Performed By: #### C BC #### [facility] [address] [place] [address] Dr. Umer Ames LYMPH # 2.2 103/ul Normal 1.2-3.8 [facility] Comment on above: Performed By: #### C BC #### [facility] [address] [place] [address] Dr. Umer Ames Lymphocytes/100 WBC (Bld) 22.6 % Normal 20.5-60.0 [facility] Comment on above: Performed By: #### C BC #### [facility] [address] [place] [address] Dr. Umer Ames MANUAL DIFF REQ NO Normal [facility] Comment on above: Performed By: #### C BC #### [facility] [address] [place] [address] Dr. Umer Ames MCH (RBC) [Entitic mass] 28.0 pg Normal 25.9-34.0 [facility] Comment on above: Performed By: #### C BC #### [facility] [address] [address] [address] Umer Ames MCHC (RBC) [Mass/Vol] 32.2 g/dL Normal 29.9-35.2 [facility] Comment on above: Performed By: #### C BC #### [facility] [address] [place] [address] Dr. Umer Ames MCV (RBC) [Entitic vol] 87.0 fL Normal 80.0-94.0 [facility] Comment on above: Performed By: #### C BC #### [facility] [address] [place] [address] Dr. Umer Ames MONO # 0.5 103/ul Normal 0.3-0.8 [facility] Comment on above: Performed By: #### C BC #### [facility] [address] [place] [address] Dr. Umer Ames Monocytes/100 WBC (Bld) 5.0 % Normal 1.7-12.0 [facility] Comment on above: Performed By: #### C BC #### [facility] [address] [place] [address] Dr. Umer Ames NEUT # 6.7 103/ul Critically high 1.4-6.5 [facility] Comment on above: Performed By: #### C BC #### [facility] [address] [place] [address] Dr. Umer Ames Neutrophils/100 WBC (Bld) 69.1 % Normal 43.0-75.0 [facility] Comment on above: Performed By: #### C BC #### [facility] [address] [place] [address] Dr. Umer Ames Platelet mean volume (Bld) [Entitic vol] 10.0 fL Normal 9.5-13.5 [facility] Comment on above: Performed By: #### C BC #### [facility] [address] [address] [address] Umer Ames PLT 277 103/ul Normal 150-450 [facility] Comment on above: Performed By: #### C BC #### [facility] [address] [place] [address] Dr. Umer Ames RBC 4.53 106/ul Critically low 4.70-6.10 [facility] Comment on above: Performed By: #### C BC #### [facility] [address] [address] [address] Umer Ames WBC 9.7 103/ul Normal 4.0-11.0 [facility] Comment on above: Performed By: #### C BC #### [facility] [address] [place] [address] Dr. Umer Ames PROF CHEM 8 (BAS METB)on Anion gap [Moles/Vol] 16.0 mmol/L Normal [facility] Comment on above: Performed By: #### B MP #### [facility] [address] [place] [address] Dr. Umer Ames Calcium [Mass/Vol] 8.9 mg/dL Normal 8.5-10.1 [facility] Comment on above: Performed By: #### B MP #### [facility] [address] [place] [address] Dr. Umer Ames Chloride [Moles/Vol] 101 mmol/L Normal 98-107 [facility] Comment on above: Performed By: #### B MP #### [facility] [address] [place] [address] Dr. Umer Ames CO2 [Moles/Vol] 26.9 mmol/L Normal 21.0-32.0 [facility] Comment on above: Performed By: #### B MP #### [facility] [address] [place] [address] Dr. Umer Ames Creatinine [Mass/Vol] 1.57 mg/dL Critically high 0.70-1.30 [facility] Comment on above: Performed By: #### B MP #### [facility] [address] [place] [address] Dr. Umer Ames EGFR-AF THAI 54 mL/min/1.73m2 Critically low >=60 [facility] Comment on above: Performed By: #### B MP #### [facility] [address] [address] [address] Umer Ames EGFR-NON AF THAI 45 mL/min/1.73m2 Critically low >=60 [facility] Comment on above: Performed By: #### B MP #### [facility] [address] [address] [address] Umer Ames Glucose [Mass/Vol] 105 mg/dL Normal 74-106 [facility] Comment on above: Performed By: #### B MP #### [facility] [address] [address] [address] Umer Ames Potassium [Moles/Vol] 3.9 mmol/L Normal 3.5-5.1 [facility] Comment on above: Performed By: #### B MP #### [facility] [address] [address] [address] Umer Ames Sodium [Moles/Vol] 140 mmol/L Normal 136-145 [facility] Comment on above: Performed By: #### B MP #### [facility] [address] [address] [address] Umer Ames Urea nitrogen [Mass/Vol] 15.0 mg/dL Normal 7.0-18.0 [facility] Comment on above: Performed By: #### B MP #### [facility] [address] [address] [address] Umer Ames Urea nitrogen/Creatinine [Mass ratio] 9.6 mg/mg Normal [facility] Comment on above: Performed By: #### B MP #### [facility] [address] [address] [address] Umer Ames HEMOGLOBINon 02-24-2023 Hemoglobin (Bld) [Mass/Vol] 12.3 g/dL Critically low 14.0-18.0 [facility] Comment on above: Performed By: #### H GB #### [facility] [address] [address] [address] Umer Ames CBC AUTO DIFFon 11-12-2022 BASO # 0.1 103/ul Normal 0.0-0.1 [facility] Comment on above: Performed By: #### C BC #### [facility] [address] [address] [address] Umer Ames Basophils/100 WBC (Bld) 0.9 % Normal 0.2-2.0 [facility] Comment on above: Performed By: #### C BC #### [facility] [address] [address] [address] Umer Ames EO # 0.3 103/ul Normal 0.0-0.7 [facility] Comment on above: Performed By: #### C BC #### [facility] [address] [address] [address] Umer Ames Eosinophils/100 WBC (Bld) 2.4 % Normal 0.9-7.0 [facility] Comment on above: Performed By: #### C BC #### [facility] [address] [address] [address] Umer Ames Erythrocyte distribution width (RBC) [Ratio] 14.6 % Normal 11.0-15.0 [facility] Comment on above: Performed By: #### C BC #### [facility] [address] [place] [address] Dr. Umer Ames Hematocrit (Bld) [Volume fraction] 41.9 % Critically low 42.0-54.0 [facility] Comment on above: Performed By: #### C BC #### [facility] [address] [place] [address] Dr. Umer Ames Hemoglobin (Bld) [Mass/Vol] 13.1 g/dL Critically low 14.0-18.0 [facility] Comment on above: Performed By: #### C BC #### [facility] [address] [address] [address] Umer Ames IG # 0.04 10e3/ul Critically high 0.00-0.03 [facility] Comment on above: Performed By: #### C BC #### [facility] [address] [place] [address] Dr. Umer Ames IG % 0.4 % Normal 0.0-0.5 [facility] Comment on above: Performed By: #### C BC #### [facility] [address] [place] [address] Dr. Umer Ames LYMPH # 2.8 103/ul Normal 1.2-3.8 [facility] Comment on above: Performed By: #### C BC #### [facility] [address] [place] [address] Dr. Umer Ames Lymphocytes/100 WBC (Bld) 25.3 % Normal 20.5-60.0 [facility] Comment on above: Performed By: #### C BC #### [facility] [address] [place] [address] Dr. Umer Ames MANUAL DIFF REQ NO Normal [facility] Comment on above: Performed By: #### C BC #### [facility] [address] [place] [address] Dr. Umer Ames MCH (RBC) [Entitic mass] 27.0 pg Normal 25.9-34.0 [facility] Comment on above: Performed By: #### C BC #### [facility] [address] [place] [address] Dr. Umer Ames MCHC (RBC) [Mass/Vol] 31.3 g/dL Normal 29.9-35.2 [facility] Comment on above: Performed By: #### C BC #### [facility] [address] [place] [address] Dr. Umer Ames MCV (RBC) [Entitic vol] 86.2 fL Normal 80.0-94.0 [facility] Comment on above: Performed By: #### C BC #### [facility] [address] [place] [address] Dr. Umer Ames MONO # 0.6 103/ul Normal 0.3-0.8 [facility] Comment on above: Performed By: #### C BC #### [facility] [address] [place] [address] Dr. Umer Ames Monocytes/100 WBC (Bld) 5.1 % Normal 1.7-12.0 [facility] Comment on above: Performed By: #### C BC #### [facility] [address] [address] [address] Umer Ames NEUT # 7.4 103/ul Critically high 1.4-6.5 [facility] Comment on above: Performed By: #### C BC #### [facility] [address] [address] [address] Umer Ames Neutrophils/100 WBC (Bld) 65.9 % Normal 43.0-75.0 [facility] Comment on above: Performed By: #### C BC #### [facility] [address] [place] [address] Dr. Umer Ames Platelet mean volume (Bld) [Entitic vol] 10.3 fL Normal 9.5-13.5 [facility] Comment on above: Performed By: #### C BC #### [facility] [address] [place] [address] Dr. Umer Ames PLT 319 103/ul Normal 150-450 [facility] Comment on above: Performed By: #### C BC #### [facility] [address] [place] [address] Dr. Umer Ames RBC 4.86 106/ul Normal 4.70-6.10 [facility] Comment on above: Performed By: #### C BC #### [facility] [address] [place] [address] Dr. Umer Ames WBC 11.2 103/ul Critically high 4.0-11.0 [facility] Comment on above: Performed By: #### C BC #### [facility] [address] [place] [address] Dr. Umer Ames ECHOCARDIO M/2D COMPLETEon 0 11-12-2022 ECHOCARDIO M/2D COMPLETE Patient: CELESTINO PATTON Exam Date: 11/12/2022 : 1955 Gender:M Ordering : DR ROMINA SANDOVAL M.D. Admission #: [id number] Family : Order #: [id number] CLICK HERE TO VIEW EXAM ECHOCARDIOGRAM REPORT PROCEDURE: CARDIO PULMONARY ECHOCARDIO M/2D COMP INDICATIONS: JACKSON, Shortness of breath COMPARISON: None. DESCRIPTION: COMPLETE ECHOCARDIOGRAM Real-time transthoracic echocardiography with 2D, M-mode, spectral and color flow Doppler performed. QUALITY: Technical quality was good. LEFT VENTRICLE: Normal chamber size. Normal left ventricular wall thickness. LV EF: Global left ventricular systolic function is normal. Visual estimation of left ventricular ejection fraction is 60% DIASTOLIC: Normal diastolic function. ATRIAL SEPTUM: Inadequately seen. LEFT ATRIUM: Mild dilatation. RIGHT ATRIUM: Mild dilatation. RIGHT VENTRICLE: Normal chamber size. Normal right ventricular systolic function. TRICUSPID VALVE: Normal mobility and thickness. No stenosis with trivial regurgitation. No evidence of pulmonary hypertension. RVSP 33mmHg MITRAL VALVE: Mildly thickened with normal mobility. No mitral valve prolapse. No evidence of mitral valve stenosis. There is no mitral annular calcification. Moderate to severe mitral regurgitation. AORTIC VALVE: Normal trileaflet appearance. No visible sclerosis. Normal leaflet mobility. No evidence of aortic valve stenosis. Mild aortic regurgitation. AORTIC ROOT: Normal diameter and appearance. PULMONIC VALVE: Normal thickness and mobility. No stenosis. No regurgitation. PERICARDIUM: Anterior free space; trivial effusion versus fat pad. IVC: Collapses with inspirations. Normal Size CONCLUSION: Global left ventricular systolic function is normal; visually estimated ejection fraction is 60 to 65%. Biatrial enlargement. Normal diastolic function. Right ventricle is normal in size and systolic function. Moderate to severe mitral regurgitation. Mild aortic regurgitation. Anterior free space; trivial effusion versus fat pad. Consider transesophageal echocardiography (ROSELYN) to evaluate the severity of the mitral regurgitation as clinically appropriate Adult Echocardiography Procedure Report Left Ventricle LVEDD (3.7 - 5.6 cm): 5.42 cm LVESD (2.2 - 4.0 cm): 3.87 cm LVIVS thickness (0.6 - 1.2 cm): 1.06 cm LVPW thickness (0.5 - 1.0 cm): 0.94 cm e': 0.09 m/s E - e': 9.95 LVOT Max Gradient: 6.01 mm[Hg] Peak Velocity (LVOT): 1.23 m/s LVOT Diameter 2.11 cm Left Atrium LA Volume Index (2D A2C): 76.62 ml, 76.62 ml Left Atrium Systolic Dimension: 3.73 cm Mitral Valve MV E to A Ratio: 0.90 Mitral Valve A-Wave Peak Velocity: 0.95 m/s Mitral Valve E-Wave Peak Velocity: 0.85 m/s Right Ventricle RV Internal Diastolic Dimension: 3.65 cm Aorta AO Root Diam: 3.18 cm Ascending Ao Diam: 2.98 cm Aortic Valve AoV Area (Peak Dnayel): 2.50 cm2, 2.50 cm2 Deceleration [place]: 1.72 m/s2 Pressure Half-Time: 560.26 ms Peak Velocity(Antegrade Flow): 1.71 m/s Peak Gradient(Antegrade Flow): 11.73 mm[Hg] Tricuspid Valve Peak Velocity (Regurgitant Flow): 1.84 m/s, 2.74 m/s, 2.44 m/s Peak Velocity: 0.66 m/s Pulmonic Valve Mean Gradient: 2.08 mm[Hg] Mean Velocity: 0.68 m/s Peak Velocity: 1.12 m/s, 1.21 m/s Peak Gradient: 5.86 mm[Hg], 5.02 mm[Hg] Right Atrium Right Atrium Systolic Pressure: 63.86 ml, 63.86 ml Dictated by: Romina Sandoval M.D. on 11/13/2022 at 12:06 Approved by: Romina Sandoval M.D. on 11/13/2022 at 12:11 Normal [facility] STRESS/REST MULTIon 11-12 UT STRESS/REST MULTI Patient: CELESTINO PATTON Exam Date: 11/12/2022 : 1955 Gender:M Ordering : DR ROMINA SANDOVAL M.D. Admission #: [id number] Family : Order #: [id number] CLICK HERE TO VIEW EXAM RADIOLOGY REPORT PROCEDURE: RADIONUCLIDE IMAGING STRESS/REST MULTI COMPARISON: NM STRESS/REST MULTI, 11/18/2018. INDICATIONS: Dyspnea on exertion TECHNIQUE: Exam Description: Stress/Rest two day protocol gated SPECT Rest Imagin.5 mCi Tc-99m Cardiolite IV on 11/12/2022 Stress Imaging 25.7 mCi Tc-99m Cardiolite IV on 12/02/2022 Exercise Protocol: 0.4 mg Lexiscan given IV Heart Rate (bpm): Rest: 57 Max: 7145 PMHR: 45 Blood Pressure: Rest: 108/72 Max: 112/72 Symptoms: Rest and peak stress ECG findings were normal and the exercise portion of the study was normal per attending physician Dr. Ferrer . For more details please see separate cardiac stress test report. FINDINGS: QUALITY OF STUDY: Excellent. PERFUSION DEFECT: LOCATION: Basal inferior. [place]. SIZE: Small (1-2 segments). SEVERITY: Moderate. TYPE: Persistent. WALL MOTION: Normal. LV SIZE: Enlarged; EDV 143 mL. TID / TCD: None; 1.0 LVEF: Normal. Calculated EF 62%. SUMMARY: Myocardial perfusion imaging study has ABNORMAL findings. CONCLUSION: 1. Fixed defect inferior wall and apex 2. No reversible ischemia 3. Dilated left ventricle, end-diastolic volume 143 milliliters 4. Normal exercise test Dictated by: Geoffrey Espino MD on 12/03/2022 at 12:34 Approved by: Geoffrey Espino MD on 12/03/2022 at 12:37 Normal [facility] PROF 14(COMP METB)on 023 Albumin [Mass/Vol] 3.9 g/dL Normal 3.4-5.0 [facility] Comment on above: Performed By: #### C MP #### [facility] [address] [place] [address] Dr. Umer Ames Albumin/Globulin [Mass ratio] 0.9 {ratio} Normal [facility] Comment on above: Performed By: #### C MP #### [facility] [address] [place] [address] Dr. Umer Ames ALP [Catalytic activity/Vol] 61 U/L Normal 46-116 [facility] Comment on above: Performed By: #### C MP #### [facility] [address] [place] [address] Dr. Umer Ames ALT [Catalytic activity/Vol] 19 U/L Normal 16-63 [facility] Comment on above: Performed By: #### C MP #### [facility] [address] [place] [address] Dr. Umer Ames Anion gap [Moles/Vol] 10.9 mmol/L Normal [facility] Comment on above: Performed By: #### C MP #### [facility] [address] [address] [address] Umer Ames AST [Catalytic activity/Vol] 17 U/L Normal 15-37 [facility] Comment on above: Performed By: #### C MP #### [facility] [address] [address] [address] Umer Ames Bilirubin [Mass/Vol] 0.4 mg/dL Normal 0.2-1.0 [facility] Comment on above: Performed By: #### C MP #### [facility] [address] [address] [address] Umer Ames Calcium [Mass/Vol] 9.2 mg/dL Normal 8.5-10.1 [facility] Comment on above: Performed By: #### C MP #### [facility] [address] [address] [address] Umer Ames Chloride [Moles/Vol] 102 mmol/L Normal 98-107 [facility] Comment on above: Performed By: #### C MP #### [facility] [address] [address] [address] Umer Ames CO2 [Moles/Vol] 30.1 mmol/L Normal 21.0-32.0 [facility] Comment on above: Performed By: #### C MP #### [facility] [address] [address] [address] Umer Ames Creatinine [Mass/Vol] 1.36 mg/dL Critically high 0.70-1.30 [facility] Comment on above: Performed By: #### C MP #### [facility] [address] [address] [address] Umer Ames EGFR-AF THAI >60 Normal >=60 [facility] Comment on above: Performed By: #### C MP #### [facility] [address] [address] [address] Umer Ames EGFR-NON AF THAI 53 mL/min/1.73m2 Critically low >=60 [facility] Comment on above: Performed By: #### C MP #### [facility] [address] [address] [address] Umer Ames Globulin (S) [Mass/Vol] 4.3 g/dL Normal [facility] Comment on above: Performed By: #### C MP #### [facility] [address] [address] [address] Umer Ames Glucose [Mass/Vol] 97 mg/dL Normal 74-106 [facility] Comment on above: Performed By: #### C MP #### [facility] [address] [address] [address] Umer Ames Potassium [Moles/Vol] 4.0 mmol/L Normal 3.5-5.1 [facility] Comment on above: Performed By: #### C MP #### [facility] [address] [address] [address] Umer Ames Protein [Mass/Vol] 8.2 g/dL Normal 6.4-8.2 [facility] Comment on above: Performed By: #### C MP #### [facility] [address] [address] [address] Umer Ames Sodium [Moles/Vol] 139 mmol/L Normal 136-145 [facility] Comment on above: Performed By: #### C MP #### [facility] [address] [address] [address] Umer Ames Urea nitrogen [Mass/Vol] 15.0 mg/dL Normal 7.0-18.0 [facility] Comment on above: Performed By: #### C MP #### [facility] [address] [address] [address] Umer Ames Urea nitrogen/Creatinine [Mass ratio] 11.0 mg/mg Normal [facility] Comment on above: Performed By: #### C MP #### [facility] [address] [address] [address] Umer Ames Q - MICROALBUMIN,RANDOM URIN E (W/CREAT)on 01-08-2022 Albumin DL <= 20 mg/L (U) [Mass/Vol] 0.6 mg/dL Normal See Note: [facility] Comment on above: Order Comment: [facility] Testing performed at: [employer] [facility], [address] [place] [address], [address] [place] [address], [address] [place] [address], Social Security Benefits Interviewer: Rodrigo Prescott MD [facility] Collection Date/Time: [facility] Results Received Date/Time: [facility] Reported Date/Time: Result Comment: Refe rence Range: Reference Range Not established Performed By: #### [id number] #### [facility] [address] [place] [address] Creatinine (U) [Mass/Vol] 132 mg/dL Normal 20-320 [facility] Comment on above: Order Comment: [facility] performed at: [employer] [facility], [address] [place] [address], [address] [place] [address], [address] [place] [address], Social Security Benefits Interviewer: Rodrigo Prescott MD [facility] Collection Date/Time: [facility] Results Received Date/Time: [facility] Reported Date/Time: Performed By: #### [id number] #### [facility] [address] [place] [address] MICROALBUMIN/CREATIN INE RATIO, RANDOM URINE 5 mcg/mg creat Normal <30 [facility] Comment on above: Order Comment: [facility] performed at: [employer] [facility], [address] [place] [address], [address] [place] [address], [address] [place] [address], Social Security Benefits Interviewer: Rodrigo Prescott MD [facility] Collection Date/Time: [facility] Results Received Date/Time: [facility] Reported Date/Time: Result Comment: The ADA defines abnormalities in albumin excretion as follows: Albuminuria Category Result (mcg/mg creatinine) Normal to Mildly increased <30 Moderately increased 30-299 Severely increased > OR = 300 The ADA recommends that at least two of three specimens collected within a 3-6 month period be abnormal before considering a patient to be within a diagnostic category. Performed By: #### [id number] #### [facility] [address] [place] [address] Vital Signs Date Time Vital Sign Value Performing Clinician Facility 02-10-2024 08:18-0400 Blood Pressure Location Mohamad Mouchli [facility] 02-10-2024 08:18-0400 Diastolic blood pressure 70 mm[Hg] Mohamad Mouchli [facility] 02-10-2024 08:18-0400 Heart rate 76 /min Mohamad Mouchli [facility] 02-10-2024 08:18-0400 Systolic blood pressure 122 mm[Hg] Mohamad Mouchli [facility] 12-30-2023 08:59-0500 Blood Pressure Location Mohamad Mouchli [facility] 12-30-2023 08:59-0500 Diastolic blood pressure 75 mm[Hg] Mohamad Mouchli [facility] 12-30-2023 08:59-0500 Heart rate 78 /min Mohamad Mouchli [facility] 12-30-2023 08:59-0500 Respiratory rate 16 /min Mohamad Mouchli [facility] 12-30-2023 08:59-0500 Systolic blood pressure 114 mm[Hg] Mohamad Mouchli [facility] 12-09-2023 08:43-0500 Body height 168.9 cm Benji Rosa MD Work Phone: [facility] 12-09-2023 08:43-0500 Body mass index (BMI) [Ratio] 43.24 kg/m2 Benji Rosa MD Work Phone: [facility] 12-09-2023 08:43-0500 Body weight 123.38 kg Benji Rosa MD Work Phone: [facility] 12-09-2023 08:43-0500 Diastolic blood pressure 76 mm[Hg] Benji Rosa MD Work Phone: [facility] 12-09-2023 08:43-0500 Heart rate 66 /min Benji Rosa MD Work Phone: [facility] 12-09-2023 08:43-0500 SaO2% (BldA) [Mass fraction] 97 % Benji Rosa MD Work Phone: [facility] 12-09-2023 08:43-0500 Systolic blood pressure 130 mm[Hg] Benji Rosa MD Work Phone: [facility] 01-19-2023 09:03-0400 Blood Pressure Location Noemizaheer DelgadoSam [facility] 01-19-2023 09:03-0400 Body temperature 96.8 [degF] Noemizaheer DelgadoSam [facility] 01-19-2023 09:03-0400 Diastolic blood pressure 67 mm[Hg] Noemi Sam [facility] 01-19-2023 09:03-0400 Heart rate 62 /min Noemi Sam [facility] 01-19-2023 09:03-0400 Systolic blood pressure 101 mm[Hg] Noemi Sam [facility] 12-07-2022 16:12-0500 Diastolic blood pressure 86 mm[Hg] Rivero SALAM [facility] 12-07-2022 16:12-0500 Heart rate 68 /min Rivero SALAM [facility] 12-07-2022 16:12-0500 Respiratory rate 15 /min Rivero SALAM [facility] 12-07-2022 16:12-0500 SaO2% (BldA) [Mass fraction] 96 % Rivero SALAM [facility] 12-07-2022 16:12-0500 Systolic blood pressure 131 mm[Hg] Rivero SALAM [facility] 12-07-2022 16:00-0500 Heart rate 69 /min Rivero SALAM [facility] 12-07-2022 16:00-0500 Respiratory rate 19 /min Rivero SALAM [facility] 12-07-2022 16:00-0500 SaO2% (BldA) [Mass fraction] 97 % Rivero SALAM [facility] 12-07-2022 16:00-0500 Systolic blood pressure 128 mm[Hg] Rivero SALAM [facility] 12-07-2022 15:55-0500 Diastolic blood pressure 80 mm[Hg] Rivero SALAM [facility] 12-07-2022 15:55-0500 Heart rate 70 /min Rivero SALAM [facility] 12-07-2022 15:55-0500 Respiratory rate 18 /min Rivero SALAM [facility] 12-07-2022 15:55-0500 SaO2% (BldA) [Mass fraction] 96 % Rivero SALAM [facility] 12-07-2022 15:55-0500 Systolic blood pressure 129 mm[Hg] Rivero SALAM [facility] 12-07-2022 15:50-0500 Respiratory rate 18 /min Rivero SALAM [facility] 02-13-2023 15:47-0500 Body temperature 98.42 [degF] Rivero SALAM [facility] 12-07-2022 15:47-0500 Respiratory rate 15 /min Rivero SALAM [facility] 12-07-2022 13:56-0500 Blood Pressure Location Rivero SALAM [facility] 12-07-2022 13:56-0500 Body temperature 98.24 [degF] Rivero SALAM [facility] 12-07-2022 13:56-0500 Respiratory rate 15 /min Rivero SALAM [facility] 10-28-2022 08:21-0500 Blood Pressure Location Rivero SALAM [facility] 10-28-2022 08:21-0500 Diastolic blood pressure 75 mm[Hg] Rivero SALAM [facility] 10-28-2022 08:21-0500 Heart rate 61 /min Rivero SALAM [facility] 10-28-2022 08:21-0500 Respiratory rate 16 /min Rivero SALAM [facility] 10-28-2022 08:21-0500 SaO2% (BldA) [Mass fraction] 98 % Rivero SALAM [facility] 10-28-2022 08:21-0500 Systolic blood pressure 120 mm[Hg] Rivero SALAM [facility] Encounters Encounter Date Encounter Type Care Provider Facility Start: 05-29-2024 End: 05-29-2024 ambulatory [facility] Start: 05-12-2024 End: 05-12-2024 ambulatory E[facility] Start: 05-03-2024 End: 05-03-2024 ambulatory BENJI ROSA Not Available Start: 02-21-2024 End: 02-21-2024 ambulatory BENJI ROSA Not Available Start: 02-10-2024 End: 02-11-2024 ambulatory Ginger Simmons Facility:[facility] Start: 02-10-2024 End: 02-10-2024 Patient encounter procedure Ginger Simmons [facility] Start: 01-18-2024 End: 01-19-2024 ambulatory Chanod Andrae Simmons Facility:[facility] Start: 01-18-2024 End: 01-18-2024 Lab Drop off Ginger Simmons [facility] Start: 12-30-2023 End: 12-31-2023 ambulatory Chanod Andrae Mouchjennifer Facility:[facility] Start: 12-30-2023 End: 12-30-2023 Patient encounter procedure Ginger Simmons [facility] Start: 12-09-2023 Bamboo flowsheet Benji hearn MD Work Phone: [facility] Start: 12-09-2023 Bamboo flowsheet Benji hearn MD Work Phone: [facility] Start: 12-09-2023 Clinisync Result Encounter Stephan Rosa MD Work Phone: [facility] Unsolicited Start: 12-09-2023 End: 12-09-2023 Office outpatient visit 25 minutes Benji Rosa MD Work Phone: [facility] Comment on above: 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 (CMS/HCC) (Primary Dx); Stage 3a chronic kidney disease (HCC) (CMS/HCC); 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); History of coronary artery bypass surgery; Pure hypercholesterolemia (CMS/HCC); Prostate cancer screening; Class 3 severe obesity due to excess calories with serious comorbidity and body mass index (BMI) of 40.0 to 44.9 in adult (CMS/HCC) Start: 12-09-2023 End: 12-09-2023 ambulatory BENJI ROSA Not Available Start: 12-07-2023 Chart abstracting Benji ulloa MD Work Phone: [facility] Start: 03-22-2023 Encounter for other preprocedural examination DR ROMINA SANDOVAL [facility] Start: 03-19-2023 End: 03-20-[address] ROMINA SANDOVAL Facility:[facility] Start: 03-19-2023 End: 03-20-2023 Encounter for other preprocedural examination DR ROMINA SANDOVAL Facility:[facility] Start: 02-24-2023 End: 02-25-[address] ROMINA SANDOVAL Facility:[facility] Start: 01-19-2023 End: 01-19-2023 Patient encounter procedure Noemi Vargas [facility] Start: 12-07-2022 End: 12-07-2022 Patient encounter procedure Mat AGUILAR [facility] Start: 12-02-2022 End: 12-03-[address] ROMINA SANDOVAL Facility:[facility] Start: 11-12-2022 End: 11-13-[address] ROMINA SANDOVAL Facility:[facility] Start: 10-28-2022 End: 10-28-2022 Patient encounter procedure Mat AGUILAR [facility] Start: 03-01-2019 End: 03-02-2019 Patient encounter procedure DEFAULT PHYSICIAN Facility:[facility] Start: 02-27-2019 End: 02-28-2019 Patient encounter procedure DEFAULT PHYSICIAN Facility:[facility] Start: 02-07-2019 End: 02-08-2019 Patient encounter procedure DEFAULT PHYSICIAN Facility:[facility] Start: 12-21-2018 End: 12-22-2018 Patient encounter procedure DEFAULT PHYSICIAN Facility:[facility] Start: 12-07-2018 End: 12-08-2018 Patient encounter procedure DEFAULT PHYSICIAN Facility:[facility] Procedures Date Procedure Procedure Detail Performing Clinician Start: 12-09-2023 ALL CBC WITH AUTO DIFF Benji Rosa MD Work Phone: Start: 12-09-2023 Hemoglobin glycosyla moncho a1c Benji Rosa MD Work Phone: Start: 03-23-2023 History of coronary artery bypass grafting History of coronary artery bypass surgery Benji Rosa MD Work Phone: Start: 12-07-2022 Colonoscopy Benji ulloa MD Work Phone: Start: 12-07-2022 Colonoscopy Rivero OSMAR M Start: 05-27-2020 Cystoscopy Rivero OSMAR M Comment on above: cystoscopy, bilatera l retrograde pyelogram Start: 12-15-2018 Cardiac catheterization Rivero SALAM Start: 11-25-2018 Open heart surgery Mahe r SALAM Start: 10-25-1981 Biliary tract reconstruction Rivero SALAM Colonoscopy Rivero SALAM History of coronary artery bypass grafting History of coronary artery bypass surgery Benji Rosa MD Work Phone: Plan of Treatment Date Care Activity Detail Author Start: 12-07-2032 Screening for malign ant neoplasm of colon [facility] Start: 03-09-2025 Glaucoma screening Diabetes: R etinopathy Screening [facility] Start: 03-08-2024 Hemoglobin A1c measurement Diabetes: Hemoglobin A1C [facility] Start: 12-09-2023 End: 12-09-2024 Comprehensive metabolic 2000 panel - Serum or Plasma Comprehensive metabolic panel Lab Routine Type 2 diabetes mellitus with other circulatory complications ([facility]/HCC) Stage 3a chronic kidney disease (HCC) ([facility]/HCC) Expected: 12/09/2023 (Approximate), Expires: 12/09/2024 [facility] Comment on above: Expected: 12/09/2023 (Approximate), Expires: 12/09/2024 Start: 12-09-2023 End: 12-09-2024 Lipid 1996 panel - Serum or Plasma Lipid panel Lab Routine Type 2 diabetes mellitus with other circulatory complications ([facility]/HCC) History of coronary artery bypass surgery Expected: 12/09/2023 (Approximate), Expires: 12/09/2024 [facility] Comment on above: Expected: 12/09/2023 (Approximate), Expires: 12/09/2024 Start: 12-09-2023 End: 12-09-2024 TSH W/REFLEX TO FT4 TSH W/REFLEX TO FT4 Lab Routine Class 3 severe obesity due to excess calories with serious comorbidity and body mass index (BMI) of 40.0 to 44.9 in adult ([facility]) Expected: 12/09/2023 (Approximate), Expires: 12/09/2024 [facility] Comment on above: Expected: 12/09/2023 (Approximate), Expires: 12/09/2024 Start: 12-09-2023 End: 12-09-2023 Patient encounter procedure [facility] Comment on above: Arrived Start: 06-25-2023 Influenza vaccination Influenza Vacc ine (#1) [facility] Start: 01-08-2023 Urine screening for protein Diabetes: Urine Protein Screening [facility] Start: 11-21-2022 Hemoglobin A1c measurement Diabetes: Hemoglobin A1C [facility] Start: 1961 Pneumococcal Vaccine : 65+ Years (1 - PCV) Pneumococcal Vaccine: 65+ Years (1 - PCV) [facility] Start: 1961 Pneumococcal Vaccine : 65+ Years (1 of 2 - PCV) Pneumococcal Vaccine: 65+ Years (1 of 2 - PCV) [facility] Start: 1955 Screening for malign ant neoplasm of colon [facility] CBC W Auto Different ial panel - Blood CBC and differential Lab Routine Type 2 diabetes mellitus with other circulatory complications ([facility]) Stage 3a chronic kidney disease (HCC) ([facility]) Ordered: 12/09/2023 [facility] Comment on above: Ordered: 12/09/2023 Microalbumin/Creatin ine panel in random Urine Microalbumin / creatinine urine ratio Lab Routine Type 2 diabetes mellitus with other circulatory complications (CMS/HCC) Ordered: 12/09/2023 [facility] Work Phone: Comment on above: Ordered: 12/09/2023 Prostate specific Ag [Mass/volume] in Serum or Plasma PSA Lab Routine Prostate cancer screening Ordered: 12/09/2023 [facility] Comment on above: Ordered: 12/09/2023 Immunizations Immunization Date Immunization Notes Care Provider Alea [facility] 08-03-2023 influenza virus vaccine, unspecified formulation Ginger Webbcolin [facility] 08-21-2022 influenza virus vaccine, unspecified formulation Rivero SALAM [facility] 08-21-2022 Influenza, injectabl e, Madin [place] Canine Kidney, preservative free, quadrivalent Benji Rosa MD Work Phone: [facility] 08-21-2022 SARS-CoV-2 (COVID-19 ) [id number] Rivero SALAM [facility] 10-23-2021 SARS-CoV-2 (COVID-19 ) mRNA BNT-162b2 vax Rivero SALAM [facility] 08-11-2021 influenza virus vaccine, unspecified formulation Rivero SALAM [facility] 08-11-2021 influenza, injectabl e, quadrivalent, preservative free Benji Rosa MD Work Phone: [facility] 01-01-2021 SARS-CoV-2 (COVID-19 ) Ad26 vaccine, recombinant Rivero SALAM [facility] 10-30-2020 influenza virus vaccine, unspecified formulation Rivero SALAM [facility] 10-30-2020 influenza, injectabl e, quadrivalent, contains preservative Benji Rosa MD Work Phone: [facility] 08-24-2019 Influenza, injectabl e, Madin [place] Canine Kidney, quadrivalent with preservative Benji Rosa MD Work Phone: [facility] 08-07-2019 influenza virus vaccine, unspecified formulation Rivero SALAM [facility] 08-25-2018 influenza virus vaccine, unspecified formulation Rivero SALAM [facility] 08-25-2018 seasonal influenza, intradermal, preservative free Benji Rosa MD Work Phone: [facility] 08-05-2017 influenza virus vaccine, unspecified formulation Rivero SALAM [facility] 08-05-2017 seasonal influenza, intradermal, preservative free Benji Rosa MD Work Phone: [facility] 08-17-2016 influenza virus vaccine, unspecified formulation Rivero SALAM [facility] 08-17-2016 influenza, injectabl e, quadrivalent, preservative free Benji Rosa MD Work Phone: [facility] 07-16-2015 influenza, injectabl e, quadrivalent, preservative free Benji Rosa MD Work Phone: [facility] Payers Date Payer Category Payer Unknown 1957 Medicare [id number] 1957 Unknown [id number] 1955 Unknown [id number] 2.16.8 [id number] 1957 Unknown [id number] 2.16.8 [id number] 1957 Unknown [id number] 2.16.8 [id number] 1957 Unknown [id number] 2.16.8 [id number] 1957 Unknown [id number] 2.16.8 [id number] 1957 Unknown [id number] 2.16.84 [id number] 1957 Unknown [id number] 2.16.84 [id number] 1957 Unknown [id number] 2.16.84 [id number] 1957 Unknown [id number] 2.16.84 [id number] 1957 Unknown [id number] 2.16.8 [id number] 1957 Unknown [id number] 2.16.8 [id number] 1957 Unknown [id number] 2.16.8 [id number] 1957 Unknown [id number] 2.16.8 [id number] 1957 Unknown [id number] 2.16.84 [id number] 1957 Unknown [id number] 2.16.84 [id number] 1957 Unknown [id number] 2.16.84 [id number] Social History Date Type Detail Facility Start: 06-12-2020 End: 02-10-2024 Tobacco smoking status Ex-smoker (finding) [facility] Start: 12-07-2023 End: 12-09-2023 Sex Assigned At Male [facility] Tobacco smoking status Never [facility] End: 10-25-2015 History of tobacco use Current smoker [facility] End: 10-25-2015 History of tobacco use Cigarette Smoker [facility] Start: 12-07-2023 End: 12-09-2023 History of Social function [facility] Start: 1955 Sex Assigned At Male [facility] Start: 12-09-2023 Tobacco use and exposure Smokeless tobacco non-user [facility] Medical Equipment Procedure Code Equipment Code Equipment Origin al Text Equipment Identifier Dates Unknown Unknown 12/07/22 Non Biological Unknown FDA Start: 12-07-2022 FDA Start: 12-07-2022 Unknown Unknown 12/07/22 Non Biological Unknown FDA Start: 12-07-2022 FDA Start: 12-07-2022 Unknown Unknown 12/07/22 Non Biological Unknown FDA Start: 12-07-2022 FDA Start: 12-07-2022 Unknown Unknown 12/07/22 Non Biological Unknown FDA Start: 12-07-2022 FDA Start: 12-07-2022 Unknown Unknown 12/07/22 Non Biological Unknown FDA Start: 12-07-2022 FDA Start: 12-07-2022 Functional Status Date Assessment Result Facility 02-10-2024 Functional Status N/A [facility] 12-30-2023 Functional Status No [facility] 01-19-2023 Functional Status N/A [facility] 12-07-2022 Functional Status N/A [facility] 10-28-2022 Functional Status N/A [facility] Clinical Notes 10-28-2022 to 05-29-2024 Benji Rosa MD - 12/09/2023 8:45 AM EST Note Date & Type Note Facility 05-29-2024 Note [facility] Cardiology Clinic Note Chief Complaint: Patient here for one year follow up.He had a echo on 05/12. Has had a few episodes of light headedness, happens at random, denies chest pain and sob. Patient denies syncope. HPI: Celestino Patton is a 68 y.o. male With a history of coronary artery disease, moderate mitral regurgitation, diabetes here in routine follow-up Has been feeling well for the most part Has infrequent episodes of lightheadedness and dizziness. This lasted for several seconds and resolved. Specifically, he denies chest pain, has had no orthopnea, paroxysmal, dyspnea, or significant lower extremity edema Cardiology ROS: Review of Systems Cardiovascular: Positive for palpitations (not often). All other systems reviewed and are negative. Past Medical History He has a past medical history of Atrial fibrillation (CMS/HCC), Atrial flutter (CMS/HCC), Coronary artery disease, Diabetes mellitus (CMS/HCC), Hypertension, and Pericardial effusion. Surgical History He has a past surgical history that includes Cardiac catheterization and Coronary artery bypass graft. Social History He reports that he has quit smoking. His smoking use included cigarettes. He has never used smokeless tobacco. He reports current alcohol use. No history on file for drug use. Family History Family History Problem Relation Name Age of Onset Coronary artery disease Mother Diabetes Father Allergies Meloxicam and Penicillins Medications Current Outpatient Medications: Align 4 mg capsule, Take 1 tablet by mouth in the morning., Disp: , Rfl: dilTIAZem ER (Tiazac) 240 mg 24 hr capsule, TAKE 1 CAPSULE EVERY MORNING, Disp: 90 capsule, Rfl: 3 Eliquis 5 mg tablet, TAKE 1 TABLET IN THE MORNING AND AT BEDTIME, Disp: 180 tablet, Rfl: 3 famotidine (Pepcid) 20 mg tablet, Take 1 tablet by mouth in the morning., Disp: , Rfl: furosemide (Lasix) 20 mg tablet, Take 1 tablet (20 mg) by mouth in the morning., Disp: 90 tablet, Rfl: 3 potassium chloride CR (Klor-Con M10) 10 mEq ER tablet, Take 10 mEq by mouth in the morning. Do not crush or chew., Disp: , Rfl: simvastatin (Zocor) 40 mg tablet, Take 40 mg by mouth at bedtime., Disp: , Rfl: SITagliptin phos-metformin (Janumet) 50-500 mg tablet, Take 1 tablet by mouth with breakfast and with evening meal., Disp: , Rfl: traZODone (Desyrel) 50 mg tablet, Take 50 mg by mouth at bedtime., Disp: , Rfl: zolpidem (Ambien) 10 mg tablet, Take by mouth if needed at bedtime for sleep., Disp: , Rfl: rosuvastatin (Crestor) 10 mg tablet, Take 1 tablet (10 mg) by mouth in the evening. (Patient not taking: Reported on 05/29/2024), Disp: 90 tablet, Rfl: 1 Last Recorded Vitals BP 112/74 Pulse 60 Ht 1.676 m (5' 6 ) Wt 119 kg (262 lb) SpO2 96% BMI 42.29 kg/m??? Physical Examination: GENERAL: alert and oriented x3, well developed, in no acute distress. HEAD: atraumatic, normocephalic. EYES: JAZLYN, EOMI. NECK: trachea midline, no JVD present, no carotid bruits present. CARDIAC: S1, S2 present. RRR. No murmur, rubs, or gallops. RESPIRATORY: CTAB, no increased effort of breathing, no rales, rhonchi, or wheezing. ABDOMEN: soft, nontender, nondistended. EXTREMITIES: no lower extremity edema, peripheral pulses are 2+ bilaterally. No rash/skin discoloration present. NEURO: strength/sensation equal and symmetric in bilateral upper and lower extremities. PSYCH: appropriate mood, affect, and judgement. Transesophageal Echocardiogram-[facility] Name: CELESTINO PATTON Study Date: 03/24/2023 10:19 AM B/P: 129 mmHg/73 mmHg HR: 79 bpm Date of : 1955 Location: [facility] Height: 66 in. Age: 67 year(s) Patient Room : [facility] Weight: 230 lb. Gender: Male Patient Status: OutPt BSA: 2.12 m2 Indication: Mitral regurgitation Examination: ROSELYN/Limited Doppler/CFI, 3D images Image Quality: Good Patient Consent: Informed, written consent was obtained for the procedure s p @ c 3 Exam Location: A ROSELYN was performed in the [facility] [employer] [facility] without complications s p @ c 3 Anesthesia Pharyngeal anesthesia with viscous Lidocaine Conclusions Left Ventricle: The left ventricle appears normal in size. The EF is 60 % visually. Right Ventricle: The right ventricle is normal in size. Right ventricular systolic function appears normal. Left Atrium: The left atrium is mildly enlarged. IAS: Lipomatous hypertrophy of the interatrial septum. Mitral Valve: Mild anterior mitral valve prolapse. Moderate mitral regurgitation. The mitral regurgitant jet is centrally directed. Aortic Valve: Mild-moderate aortic valve regurgitation. Overall Conclusions: Moderate mitral regurgitation with centrally directed jet. The patient was hypertensive during the procecdure with systolic BP in the 150s mmHg. Labs 12/09/2023: Serum creatinine 1.27 Triglycerides 98, total cholesterol 154, LDL 91, HDL 44 Echocardiogram-U (more content not included)... [facility] 12-09-2023 History of Present illness Narrative Subjective Patient ID: Jason Patton is a 68 y.o. male who presents for Hypertension and Diabetes. Hypertension Patient is here for follow-up of elevated blood pressure. Cardiac symptoms: none. Patient denies chest pain, claudication, irregular heart beat, lower extremity edema, near-syncope, palpitations, paroxysmal nocturnal dyspnea, syncope, and tachypnea. Cardiovascular risk factors: advanced age (older than 55 for men, 65 for women), diabetes mellitus, dyslipidemia, hypertension, male gender, and obesity (BMI >= 30 kg/m2). Diabetes Mellitus Patient presents for follow up of diabetes. Current symptoms include: paresthesia of the feet. Patient denies foot ulcerations, hypoglycemia , nausea, polyuria, and vomiting. Evaluation to date has included: fasting blood sugar, fasting lipid panel, hemoglobin A1C, and microalbuminuria. Home sugars: BGs range between 145 and 175. Hypertension Pertinent negatives include no chest pain, palpitations or shortness of breath. Diabetes Pertinent negatives for diabetes include no chest pain and no fatigue. Current Outpatient Medications on File Prior to Visit Medication Sig Dispense Refill apixaban (Eliquis) 5 MG tablet Take 1 tablet (5 mg) by mouth in the morning and 1 tablet (5 mg) before bedtime. 60 tablet 2 dilTIAZem ER (Tiazac) 240 MG 24 hr capsule Take 240 mg by mouth in the morning. famotidine (Pepcid) 20 MG tablet Take 1 tablet by mouth in the morning. furosemide (Lasix) 20 MG tablet Take 20 mg by mouth in the morning. latanoprost (Xalatan) 0.005 % ophthalmic solution Administer 1 drop into both eyes at bedtime potassium chloride CR (Klor-Con M10) 10 MEQ ER tablet Take 10 mEq by mouth in the morning. simvastatin (Zocor) 40 MG tablet Take 1 tablet (40 mg) by mouth at bedtime. 100 tablet 4 SITagliptin-metFORMIN (Janumet) 50-500 MG tablet every 12 (twelve) hours. traZODone (Desyrel) 50 MG tablet TAKE 1/2 TABLET AT BEDTIME 45 tablet 3 zolpidem (Ambien) 10 MG tablet 1 tablet Orally at bedtime as needed for 90 days [DISCONTINUED] apixaban (Eliquis) 5 MG tablet Take 5 mg by mouth in the morning and 5 mg in the evening. [DISCONTINUED] aspirin 81 MG EC tablet Take 81 mg by mouth every other day No current facility-administered medications on file prior to visit. Allergies Allergen Reactions Meloxicam Unknown and Rash Other Reaction(s): rectal bleeding Blood in stool Penicillins Rash and Unknown Other Reaction(s): Drug rash Social History Tobacco Use Smoking status: Former Types: Cigarettes Quit date: 2015 Years since quittin.1 Smokeless tobacco: Never Family History Problem Relation Name Age of Onset Hypertension Mother Heart disease Mother Mental illness Mother Kidney disease Mother Seizures Mother COPD Father Hypertension Father Diabetes Father Past Medical History: Diagnosis Date Allergic Arthritis CAD (coronary artery disease) (CMS/HCC) Diabetes mellitus (CMS/HCC) GERD (gastroesophageal reflux disease) Glaucoma (CMS/HCC) Past Surgical History: Procedure Laterality Date CARDIAC CATHETERIZATION 2018 COLONOSCOPY 2004 COLONOSCOPY W/ POLYPECTOMY 2012 CORONARY ARTERY BYPASS GRAFT 2019 x2 CYSTOSCOPY 2019 EGD 2012 with biopsy positive hpylori Visit Vitals BP 130/76 Pulse 66 Ht 5' 6.5 Wt 272 lb SpO2 97% BMI 43.24 kg/m Smoking Status Former BSA 2.4 m Review of Systems Constitutional: Positive for unexpected weight change. Negative for appetite change and fatigue. Respiratory: Negative for cough, chest tightness and shortness of breath. Cardiovascular: Negative for chest pain, palpitations and leg swelling. Gastrointestinal: Negative for abdominal pain, nausea and vomiting. Genitourinary: Negative for difficulty urinating, hematuria and urgency. Objective Physical Exam Constitutional: General: He is not in acute distress. Appearance: He is normal weight. He is not ill-appearing. HENT: Head: Normocephalic. Cardiovascular: Rate and Rhythm: Normal rate and regular rhythm. Heart sounds: Normal heart sounds. No murmur heard. Pulmonary: Effort: Pulmonary effort is normal. Breath sounds: Normal breath sounds. Musculoskeletal: General: No swelling. Right lower leg: No edema. Left lower leg: No edema. Neurological: Mental Status: He is alert. Psychiatric: Mood and Affect: Mood normal. Thought Content: Thought content normal. Judgment: Judgment normal. Office Visit on 12/09/2023 Component Date Value Ref Range Status Hemoglobin A1C 12/09/2023 6.0 Final Assessment/Plan Diagnoses and all orders for this visit: Type 2 diabetes mellitus with other circulatory complications ([facility]/HCC) - POCT Glycated hemoglobin, total - Microalbumin / creatinine urine ratio - Comprehensive metabolic panel; Future - CBC and differential - Lipid panel; Future Stage 3a chronic kidney disease (HCC) ([facility]/HCC) - Comprehensive metabolic panel; Future - CBC and differential Atherosclerotic heart disease of [place] coronary artery with other forms of angina pectoris ([facility]) History of coronary artery bypass surgery - Lipid panel; Future Pure hypercholesterolemia ([facility]/HCC) Prostate cancer screening - PSA Class 3 severe obesity due to excess calories with serious comorbidity and body mass index (BMI) of 40.0 to 44.9 in adult ([facility]/HCC) - TSH W/REFLEX TO FT4; Future Follow up in about 4 weeks (around 01/06/2024) for Wellness, Test/Lab Review. documented in this encounter [facility] 01-19-2023 Hospital Discharge instructions Patient Education 01/19/2023 09:04:19 High-Fiber Diet High-Fiber Diet Fiber, also called dietary fiber, is a type of carbohydrate that is found in fruits, vegetables, whole grains, and beans. A high-fiber diet can have many health benefits. Your health care provider may recommend a high-fiber diet to help: Prevent constipation. Fiber can make your bowel movements more regular. Lower your cholesterol. Relieve the following conditions: ?Swelling of veins in the anus (hemorrhoids). ?Swelling and irritation (inflammation) of specific areas of the digestive tract (uncomplicated diverticulosis). ?A problem of the large intestine (colon) that sometimes causes pain and diarrhea (irritable bowel syndrome, IBS). Prevent overeating as part of a weight-loss plan. Prevent heart disease, type 2 diabetes, and certain cancers. What is my plan? The recommended daily fiber intake in grams (g) includes: 38 g for men age 50 or younger. 30 g for men over age 50. 25 g for women age 50 or younger. 21 g for women over age 50. You can get the recommended daily intake of dietary fiber by: Eating a variety of fruits, vegetables, grains, and beans. Taking a fiber supplement, if it is not possible to get enough fiber through your diet. What do I need to know about a high-fiber diet? It is better to get fiber through food sources rather than from fiber supplements. There is not a lot of research about how effective supplements are. Always check the fiber content on the nutrition facts label of any prepackaged food. Look for foods that contain 5 g of fiber or more per serving. Talk with a diet and clinical research specialist (dietitian) if you have questions about specific foods that are recommended or not recommended for your medical condition, especially if those foods are not listed below. Gradually increase how much fiber you consume. If you increase your intake of dietary fiber too quickly, you may have bloating, cramping, or gas. Drink plenty of water. Water helps you to digest fiber. What are tips for following this plan? Eat a wide variety of high-fiber foods. Make sure that half of the grains that you eat each day are whole grains. Eat breads and cereals that are made with whole-grain flour instead of refined flour or white flour. Eat brown rice, bulgur wheat, or millet instead of white rice. Start the day with a breakfast that is high in fiber, such as a cereal that contains 5 g of fiber or more per serving. Use beans in place of meat in soups, salads, and pasta dishes. Eat high-fiber snacks, such as berries, raw vegetables, nuts, and popcorn. Choose whole fruits and vegetables instead of processed forms like juice or sauce. What foods can I eat? Fruits Berries. Pears. Apples. Oranges. Avocado. Prunes and raisins. Dried figs. Vegetables Sweet potatoes. Spinach. Kale. Artichokes. Cabbage. Broccoli. Cauliflower. Green peas. Carrots. Squash. Grains Whole-grain breads. Multigrain cereal. Oats and oatmeal. Brown rice. Barley. Bulgur wheat. Millet. Quinoa. Bran muffins. Popcorn. [place] wafer crackers. Meats and other proteins [place], kidney, and [place]adows beans. Soybeans. Split peas. Lentils. Nuts and seeds. Dairy Fiber-fortified yogurt. Beverages Fiber-fortified soy milk. Fiber-fortified orange juice. Other foods Fiber bars. The items listed above may not be a complete list of recommended foods and beverages. Contact a dietitian for more options. What foods are not recommended? Fruits Fruit juice. Cooked, strained fruit. Vegetables Fried potatoes. Canned vegetables. Well-cooked vegetables. Grains White bread. Pasta made with refined flour. White rice. Meats and other proteins Fatty cuts of meat. Fried chicken or fried fish. Dairy Milk. Yogurt. Cream cheese. Sour cream. Fats and oils [place]. Beverages Soft drinks. Other foods Cakes and pastries. The items listed above may not be a complete list of foods and beverages to avoid. Contact a dietitian for more information. Summary Fiber is a type of carbohydrate. It is found in fruits, vegetables, whole grains, and beans. There are many health benefits of eating a high-fiber diet, such as preventing constipation, lowering blood cholesterol, helping with weight loss, and reducing your risk of heart disease, diabetes, and certain cancers. Gradually increase your intake of fiber. Increasing too fast can result in cramping, bloating, and gas. Drink plenty of water while you increase your fiber. The best sources of fiber include whole fruits and vegetables, whole grains, nuts, seeds, and beans. This information is not intended to replace advice given to you by your health care provider. Make sure you discuss any questions you have with your health care provider. Document Released: 10/11/2006 Document Revised: 08/15/2018 Document Reviewed: 08/15/2018 [employer] Patient Education 2020 [employer]. 01/19/2023 09:04:18 Hemorrhoids Hemorrhoids Hemorrhoids are swollen veins in and around the rectum or anus. There are two types of hemorrhoids: Internal hemorrhoids. These occur in the veins that are just inside the rectum. They may poke through to the outside and become irritated and painful. External hemorrhoids. These occur in the veins that are outside the anus and can be felt as a painful swelling or hard lump near the anus. Most hemorrhoids do not cause serious problems, and they can be managed with home treatments such as diet and lifestyle changes. If home treatments do not help the symptoms, procedures can be done to shrink or remove the hemorrhoids. What are the causes? This condition is caused by increased pressure in the anal area. This pressure may result from various things, including: Constipation. Straining to have a bowel movement. Diarrhea. . Obesity. Sitting for long periods of time. Heavy lifting or other activity that causes you to strain. Anal sex. Riding a bike for a long period of time. What are the signs or symptoms? Symptoms of this condition include: Pain. Anal itching or irritation. Rectal bleeding. Leakage of stool (feces). Anal swelling. One or more lumps around the anus. How is this diagnosed? This condition can often be diagnosed through a visual exam. Other exams or tests may also be done, such as: An exam that involves feeling the rectal area with a gloved hand (digital rectal exam). An exam of the anal canal that is done using a small tube (anoscope). A blood test, if you have lost a significant amount of blood. A test to look inside the colon using a flexible tube with a camera on the end (sigmoidoscopy or colonoscopy). How is this treated? This condition can usually be treated at home. However, various procedures may be done if dietary changes, lifestyle changes, and other home treatments do not help your symptoms. These procedures can help make the hemorrhoids smaller or remove them completely. Some of these procedures involve surgery, and others do not. Common procedures include: Rubber band ligation. Rubber bands are placed at the base of the hemorrhoids to cut off their blood supply. Sclerotherapy. Medicine is injected into the hemorrhoids to shrink them. Infrared coagulation. A type of light energy is used to get rid of the hemorrhoids. Hemorrhoidectomy surgery. The hemorrhoids are surgically removed, and the veins that supply them are tied off. Stapled hemorrhoidopexy surgery. The surgeon consuelo the base of the hemorrhoid to the rectal wall. Follow these instructions at home: Eating and drinking Eat foods that have a lot of fiber in them, such as whole grains, beans, nuts, fruits, and vegetables. Ask your health care provider about taking products that have added fiber (fiber supplements). Reduce the amount of fat in your diet. You can do this by eating low-fat dairy products, eating less red meat, and avoiding processed foods. Drink enough fluid to keep your urine pale yellow. Managing pain and swelling Take warm sitz baths for 20 minutes, 3 4 times a day to ease pain and discomfort. You may do this in a bathtub or using a portable sitz bath that fits over the toilet. If directed, apply ice to the affected area. Using ice packs between sitz baths may be helpful. ?Put ice in a plastic bag. ?Place a towel between your skin and the bag. ?Leave the ice on for 20 minutes, 2 3 times a day. General instructions Take qncb-wdz-jioirlh and prescription medicines only as told by your health care provider. Use medicated creams or suppositories as told. Get regular exercise. Ask your health care provider how much and what kind of exercise is best for you. In general, you should do moderate exercise for at least 30 minutes on most days of the week (150 minutes each week). This can include activities such as walking, biking, or yoga. Go to the bathroom when you have the urge to have a bowel movement. Do not wait. Avoid straining to have bowel movements. Keep the anal area dry and clean. Use wet toilet paper or moist towelettes after a bowel movement. Do not sit on the toilet for long periods of time. This increases blood pooling and pain. Keep all follow-up visits as told by your health care provider. This is important. Contact a health care provider if you have: Increasing pain and swelling that are not controlled by treatment or medicine. Difficulty having a bowel movement, or you are unable to have a bowel movement. Pain or inflammation outside the area of the hemorrhoids. Get help right away if you have: Uncontrolled bleeding from your rectum. Summary Hemorrhoids are swollen veins in and around the rectum or anus. Most hemorrhoids can be managed with home treatments such as diet and lifestyle changes. Taking warm sitz baths can help ease pain and discomfort. In severe cases, procedures or surgery can be done to shrink or remove the hemorrhoids. This information is not intended to replace advice given to you by your health care provider. Make sure you discuss any questions you have with your health care provider. Document Released: 10/08/2001 Document Revised: 03/08/2020 Document Reviewed: 03/02/2019 [employer] Patient Education 2020 [employer] 01/19/2023 09:04:17 Colon Polyps Colon Polyps Polyps are tissue growths inside the body. Polyps can grow in many places, including the large intestine (colon). A polyp may be a round bump or a mushroom-shaped growth. You could have one polyp or several. Most colon polyps are noncancerous (benign). However, some colon polyps can become cancerous over time. Finding and removing the polyps early can help prevent this. What are the causes? The exact cause of colon polyps is not known. What increases the risk? You are more likely to develop this condition if you: Have a family history of colon cancer or colon polyps. Are older than 50 or older than 45 if you are . Have inflammatory bowel disease, such as ulcerative colitis or Crohn's disease. Have certain hereditary conditions, such as: ?Familial adenomatous polyposis. ?Ferrari syndrome. ?Turcot syndrome. ?Peutz Jeghers syndrome. Are overweight. Smoke cigarettes. Do not get enough exercise. Drink too much alcohol. Eat a diet that is high in fat and red meat and low in fiber. Had childhood cancer that was treated with abdominal radiation. What are the signs or symptoms? Most polyps do not cause symptoms. If you have symptoms, they may include: Blood coming from your rectum when having a bowel movement. Blood in your stool. The stool may look dark red or black. Abdominal pain. A change in bowel habits, such as constipation or diarrhea. How is this diagnosed? This condition is diagnosed with a colonoscopy. This is a procedure in which a lighted, flexible scope is inserted into the anus and then passed into the colon to examine the area. Polyps are sometimes found when a colonoscopy is done as part of routine cancer screening tests. How is this treated? Treatment for this condition involves removing any polyps that are found. Most polyps can be removed during a colonoscopy. Those polyps will then be tested for cancer. Additional treatment may be needed depending on the results of testing. Follow these instructions at home: Lifestyle Maintain a healthy weight, or lose weight if recommended by your health care provider. Exercise every day or as told by your health care provider. Do not use any products that contain nicotine or tobacco, such as cigarettes and e-cigarettes. If you need help quitting, ask your health care provider. If you drink alcohol, limit how much you have: ?0 1 drink a day for women. ? 0 2 drinks a day for men. Be aware of how much alcohol is in your drink. In the [place] one drink equals one 12 oz bottle of beer (355 mL), one 5 oz glass of wine (148 mL), or one 1 oz shot of hard liquor (44 mL). Eating and drinking Eat foods that are high in fiber, such as fruits, vegetables, and whole grains. Eat foods that are high in calcium and vitamin D, such as milk, cheese, yogurt, eggs, liver, fish, and broccoli. Limit foods that are high in fat, such as fried foods and desserts. Limit the amount of red meat and processed meat you eat, such as hot dogs, sausage, nagel, and lunch meats. General instructions Keep all follow-up visits as told by your health care provider. This is important. ?This includes having regularly scheduled colonoscopies. ?Talk to your health care provider about when you need a colonoscopy. Contact a health care provider if: You have new or worsening bleeding during a bowel movement. You have new or increased blood in your stool. You have a change in bowel habits. You lose weight for no known reason. Summary Polyps are tissue growths inside the body. Polyps can grow in many places, including the colon. Most colon polyps are noncancerous (benign), but some can become cancerous over time. This condition is diagnosed with a colonoscopy. Treatment for this condition involves removing any polyps that are found. Most polyps can be removed during a colonoscopy. This information is not intended to replace advice given to you by your health care provider. Make sure you discuss any questions you have with your health care provider. Document Released: 07/07/2005 Document Revised: 01/26/2019 Document Reviewed: 01/26/2019 [employer] Patient Education 2020 [employer]. Follow Up Care 12/24/2022 14:44:23 With:Noemi Vargas CNP Address: When:1 year only if needed [facility] 12-07-2022 Hospital Discharge instructions Patient Education 12/07/2022 15:56:43 Colonoscopy, Care After Surgery [facility] (CUSTOM) Colonoscopy Care After Surgery Please read the instructions outlined below and refer to this sheet in the next few weeks. These discharge instructions provide you with general information on caring for yourself after you leave the hospital. Your doctor may also give you specific instructions. While your treatment has been planned according to the most current medical practices available, unavoidable complications occasionally occur. If you have any problems or questions after discharge, please call your doctor. ACTIVITY You may resume your regular activity, but move at a slower pace for the next 24 hours. Take frequent rest periods for the next 24 hours. Walking will help get rid of the air and reduce the bloated feeling in your abdomen (belly). No driving for 24 hours (because of the anesthesia (medicine) used during the test). You may shower. Do not sign any important legal documents or operate any machinery for 24 hours (because of the anesthesia used during the test). NUTRITION Drink plenty of fluids. You may resume your normal diet as instructed by your doctor. Begin with a light meal and progress to your normal diet. Heavy or fried foods are harder to digest and may make you feel nauseated (sick to your stomach). Avoid alcoholic beverages for 24 hours or as instructed. MEDICATIONS You may resume your normal medications unless your doctor tells you otherwise. WHAT YOU CAN EXPECT TODAY Some feelings of bloating in the abdomen. Passage of more gas than usual. Spotting of blood in your stool or on the toilet paper. FOLLOW-UP Your doctor will discuss the results of your test with you. SEEK IMMEDIATE MEDICAL ATTENTION IF: There is more than a spotting of blood in your stool. There is abdominal distention (your abdomen is swollen). There is vomiting. You have a temperature over 101.5 F. There is abdominal pain or discomfort that is severe or gets worse throughout the day. 12/07/2022 15:56:43 Colon Polyps Colon Polyps Polyps are tissue growths inside the body. Polyps can grow in many places, including the large intestine (colon). A polyp may be a round bump or a mushroom-shaped growth. You could have one polyp or several. Most colon polyps are noncancerous (benign). However, some colon polyps can become cancerous over time. Finding and removing the polyps early can help prevent this. What are the causes? The exact cause of colon polyps is not known. What increases the risk? You are more likely to develop this condition if you: Have a family history of colon cancer or colon polyps. Are older than 50 or older than 45 if you are . Have inflammatory bowel disease, such as ulcerative colitis or Crohn's disease. Have certain hereditary conditions, such as: ?Familial adenomatous polyposis. ?Ferrari syndrome. ?Turcot syndrome. ?Peutz Jeghers syndrome. Are overweight. Smoke cigarettes. Do not get enough exercise. Drink too much alcohol. Eat a diet that is high in fat and red meat and low in fiber. Had childhood cancer that was treated with abdominal radiation. What are the signs or symptoms? Most polyps do not cause symptoms. If you have symptoms, they may include: Blood coming from your rectum when having a bowel movement. Blood in your stool. The stool may look dark red or black. Abdominal pain. A change in bowel habits, such as constipation or diarrhea. How is this diagnosed? This condition is diagnosed with a colonoscopy. This is a procedure in which a lighted, flexible scope is inserted into the anus and then passed into the colon to examine the area. Polyps are sometimes found when a colonoscopy is done as part of routine cancer screening tests. How is this treated? Treatment for this condition involves removing any polyps that are found. Most polyps can be removed during a colonoscopy. Those polyps will then be tested for cancer. Additional treatment may be needed depending on the results of testing. Follow these instructions at home: Lifestyle Maintain a healthy weight, or lose weight if recommended by your health care provider. Exercise every day or as told by your health care provider. Do not use any products that contain nicotine or tobacco, such as cigarettes and e-cigarettes. If you need help quitting, ask your health care provider. If you drink alcohol, limit how much you have: ?0 1 drink a day for women. ? 0 2 drinks a day for men. Be aware of how much alcohol is in your drink. In the [place] one drink equals one 12 oz bottle of beer (355 mL), one 5 oz glass of wine (148 mL), or one 1 oz shot of hard liquor (44 mL). Eating and drinking Eat foods that are high in fiber, such as fruits, vegetables, and whole grains. Eat foods that are high in calcium and vitamin D, such as milk, cheese, yogurt, eggs, liver, fish, and broccoli. Limit foods that are high in fat, such as fried foods and desserts. Limit the amount of red meat and processed meat you eat, such as hot dogs, sausage, nagel, and lunch meats. General instructions Keep all follow-up visits as told by your health care provider. This is important. ?This includes having regularly scheduled colonoscopies. ?Talk to your health care provider about when you need a colonoscopy. Contact a health care provider if: You have new or worsening bleeding during a bowel movement. You have new or increased blood in your stool. You have a change in bowel habits. You lose weight for no known reason. Summary Polyps are tissue growths inside the body. Polyps can grow in many places, including the colon. Most colon polyps are noncancerous (benign), but some can become cancerous over time. This condition is diagnosed with a colonoscopy. Treatment for this condition involves removing any polyps that are found. Most polyps can be removed during a colonoscopy. This information is not intended to replace advice given to you by your health care provider. Make sure you discuss any questions you have with your health care provider. Document Released: 07/07/2005 Document Revised: 01/26/2019 Document Reviewed: 01/26/2019 [employer] Patient Education 2020 [employer]. 12/07/2022 15:56:43 Hemorrhoids, Bhjl-ku-[id number] Hemorrhoids Hemorrhoids are swollen veins that may develop: In the butt (rectum). These are called internal hemorrhoids. Around the opening of the butt (anus). These are called external hemorrhoids. Hemorrhoids can cause pain, itching, or bleeding. Most of the time, they do not cause serious problems. They usually get better with diet changes, lifestyle changes, and other home treatments. What are the causes? This condition may be caused by: Having trouble pooping (constipation). Pushing hard (straining) to poop. Watery poop (diarrhea). . Being very overweight (obese). Sitting for long periods of time. Heavy lifting or other activity that causes you to strain. Anal sex. Riding a bike for a long period of time. What are the signs or symptoms? Symptoms of this condition include: Pain. Itching or soreness in the butt. Bleeding from the butt. Leaking poop. Swelling in the area. One or more lumps around the opening of your butt. How is this diagnosed? A doctor can often diagnose this condition by looking at the affected area. The doctor may also: Do an exam that involves feeling the area with a gloved hand (digital rectal exam). Examine the area inside your butt using a small tube (anoscope). Order blood tests. This may be done if you have lost a lot of blood. Have you get a test that involves looking inside the colon using a flexible tube with a camera on the end (sigmoidoscopy or colonoscopy). How is this treated? This condition can usually be treated at home. Your doctor may tell you to change what you eat, make lifestyle changes, or try home treatments. If these do not help, procedures can be done to remove the hemorrhoids or make them smaller. These may involve: Placing rubber bands at the base of the hemorrhoids to cut off their blood supply. Injecting medicine into the hemorrhoids to shrink them. Shining a type of light energy onto the hemorrhoids to cause them to fall off. Doing surgery to remove the hemorrhoids or cut off their blood supply. Follow these instructions at home: Eating and drinking Eat foods that have a lot of fiber in them. These include whole grains, beans, nuts, fruits, and vegetables. Ask your doctor about taking products that have added fiber (fibersupplements). Reduce the amount of fat in your diet. You can do this by: ?Eating low-fat dairy products. ?Eating less red meat. ?Avoiding processed foods. Drink enough fluid to keep your pee (urine) pale yellow. Managing pain and swelling Take a warm-water bath (sitz bath) for 20 minutes to ease pain. Do this 3 4 times a day. You may do this in a bathtub or using a portable sitz bath that fits over the toilet. If told, put ice on the painful area. It may be helpful to use ice between your warm baths. ?Put ice in a plastic bag. ?Place a towel between your skin and the bag. ?Leave the ice on for 20 minutes, 2 3 times a day. General instructions Take stxf-win-eytwefd and prescription medicines only as told by your doctor. ?Medicated creams and medicines may be used as told. Exercise often. Ask your doctor how much and what kind of exercise is best for you. Go to the bathroom when you have the urge to poop. Do not wait. Avoid pushing too hard when you poop. Keep your butt dry and clean. Use wet toilet paper or moist towelettes after pooping. Do not sit on the toilet for a long time. Keep all follow-up visits as told by your doctor. This is important. Contact a doctor if you: Have pain and swelling that do not get better with treatment or medicine. Have trouble pooping. Cannot poop. Have pain or swelling outside the area of the hemorrhoids. Get help right away if you have: Bleeding that will not stop. Summary Hemorrhoids are swollen veins in the butt or around the opening of the butt. They can cause pain, itching, or bleeding. Eat foods that have a lot of fiber in them. These include whole grains, beans, nuts, fruits, and vegetables. Take a warm-water bath (sitz bath) for 20 minutes to ease pain. Do this 3 4 times a day. This information is not intended to replace advice given to you by your health care provider. Make sure you discuss any questions you have with your health care provider. Document Released: 07/20/2009 Document Revised: 10/19/2019 Document Reviewed: 03/02/2019 [employer] Patient Education 2020 [employer] Follow Up Care 10/28/2022 09:00:29 With:Rivero TYE Address: [address] [place] [address]. [address] [place] [address] Business (1) When: Unknown Comments:Call for any problems. Office will call for follow up appt [facility] 12-07-2022 Evaluation + Plan note Extrac moncho from: Title:CSB post op Author:Jevon Prasad MD Date:12/07/22 Plan Transfer/Discharge: Transfer/Discharge Discharge when meets criteria ( To home ). Future Scheduled Tests Laboratory* CBC w/ Auto Diff 10/28/22 [facility]02-08-2023 NoteCARDIAC STRESS TEST Requesting Physician: Romian Sandoval M.D. Procedure Date:12/02/2022 PERFORMING PHYSICIAN: Ginger Ferrer M.D. REASON FOR EXAMINATION: Dyspnea on exertion. STRESS TEST PROTOCOL: Lexiscan RESTING HEART RATE: 57 beats per minute MAXIMAL HEART RATE: 71 beats per minute RESTING BLOOD PRESSURE: 103/72 MAXIMAL BLOOD PRESSURE: 112/72 CONCLUSION: 1. Baseline EKG is abnormal. Patient noted to have sinus bradycardia with first degree AV block, in addition to low voltage QRS complexes. 2. No definite signs of ischemia on EKG portion of stress test. 3. Please refer to separately interpreted and reported myocardial perfusion scan imaging. 4. Clinical correlation recommended.[id number] Evaluation + Plan note Future Scheduled Tests Laboratory* CBC w/ Auto Diff 10/28/22 [facility] Evaluation + Plan note Future Appointments Appointment Date:12/07/2022 02:45:00 PM Scheduled Provider: Location:[facility] Appointment Type:Surgery FT Future Scheduled Tests Laboratory* CBC w/ Auto Diff 10/28/22 [facility] Evaluation + Plan note Future Appointments Appointment Date:02/10/2024 08:15:00 AM Scheduled Provider:Ginger Simmons MD Location:[facility] Appointment Type:BAD Follow Up Future Scheduled Tests Laboratory* Pancreatic Elastase, Fecal 12/30/23 * Calprotectin, Fecal 12/30/23 * Calprotectin, Fecal 12/30/23 * Fecal WBC Lactoferrin 12/30/23 * O & P Exam, Routine 12/30/23 * Clostridium Difficile PCR 12/30/23 * Enteric Panel by PCR 12/30/23 [facility] Evaluation + Plan note Future Appointments Appointment Date:02/10/2024 08:15:00 AM Scheduled Provider:Ginger Simmons MD Location:[facility] Appointment Type:[facility] Follow Up Diagnostic Tests Pending * Celiac Disease Comprehensive 12/30/23 Future Scheduled Tests Laboratory* Pancreatic Elastase, Fecal 12/30/23 * Calprotectin, Fecal 12/30/23 * Calprotectin, Fecal 12/30/23 * Fecal WBC Lactoferrin 12/30/23 * O & P Exam, Routine 12/30/23 * Clostridium Difficile PCR 12/30/23 * Enteric Panel by PCR [facility]ments Appointment Date:02/10/2024 08:15:00 AM Scheduled Provider:Ginger Simmons MD Location:[facility] Appointment Type:[facility] Follow Up Diagnostic Tests Pending * Calprotectin, Fecal 01/18/24 * Enteric Panel by PCR 01/18/24 * O & P Exam, Routine 01/18/24 * Pancreatic Elastase, Fecal [facility] Diagnosis 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 Stage 3a chronic kidney disease (HCC) (CMS/HCC) 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) History of coronary artery bypass surgery Postsurgical aortocoronary bypass status Pure hypercholesterolemia (CMS/HCC) Pure hypercholesterolemia Prostate cancer screening Special screening for malignant neoplasm of prostate Class 3 severe obesity due to excess calories with serious comorbidity and body mass index (BMI) of 40.0 to 44.9 in adult (CMS/HCC) documented in this encounter [facility] Narrative No data available for this section [facility] Discharge instructions No data available for this section [facility] Progress note No data available for this section [facility] Summary Purpose Family History No Family History Records FoundNo Family History Records FoundNo Family History Records Found No data available for this section No data available for this section No data available for this section No data available for this section No Family History Records FoundNo Family History Records FoundNo Family History Records Found Advance Directives No Advanced Directives Records FoundNo Advanced Directives Records FoundNo Advanced Directives Records FoundNo Advanced Directives Records FoundNo Advanced Directives Records FoundNo Advanced Directives Records Found Additional Source Comments (unrecognized sect ion and content) No Status Records FoundNo Status Records FoundNo Status Records FoundNo Status Records FoundNo Status Records FoundNo Status Records Found INFORMATION SOURCE (unrecogn ized section and content) DATE CREATED AUTHOR 03/13/2019 [facility] DATE CREATED AUTHOR AUTHOR'S ORGANIZ ATION 01/10/2022 [facility] dical Specialist DATE CREATED AUTHOR AUTHOR'S ORGANIZ ATION 04/03/2023 [facility] DATE CREATED AUTHOR AUTHOR'S ORGANIZ ATION 02/11/2024 [facility] DATE CREATED AUTHOR AUTHOR'S ORGANIZ ATION 05/10/2024 [facility] dical Specialists [facility] DATE CREATED AUTHOR AUTHOR'S ORGANIZ ATION 05/31/2024 [facility] Patient Care team informatio n (unrecognized section and content) Wound/Ostomy Nurse Relationship Specialty Start Date End Date Benji Rosa MD [address] [facility] [address] [place] [address] PCP - General Internal Medicine 03/02/23 Wound/Ostomy Nurse Relationship Specialty Start Date End Date Benji Rosa MD [address] [facility] [address] [place] [address] PCP - General Internal Medicine 03/02/23 Wound/Ostomy Nurse Relationship Specialty Start Date End Date Benji Rosa MD [address] [facility] [address] [place] [address] PCP - General Internal Medicine 03/02/23 Wound/Ostomy Nurse Relationship Specialty Start Date End Date Benji Rosa MD [address] [facility] [address] [place] [address] PCP - General Internal Medicine 03/02/23 Reason for Visit (unrecogniz ed section and content) Reason Comments Hypertension Diabetes FOR RECORDS PERTAINING TO PATIENTS WHO ARE OR HAVE BEEN ENROLLED IN A CHEMICAL DEPENDENCY/SUBSTANCEABUSE PROGRAM, SOME INFORMATION MAY BE OMITTED. This clinical summary was aggregated from multiple sources. Caution should be exercised in using it in the provision of clinical care. This summary normalizes information from multiple sources, and as a consequence, information in this document may materially change the coding, format and clinical context of patient data. In addition, data may be omitted in some cases. CLINICAL DECISIONS SHOULD BE BASED ON THE PRIMARY CLINICAL RECORDS. [employer] [facility]. provides no warranty or guarantee of the accuracy or completeness of information in this document.
[2024-06-21 13:16] LABS: Anion Gap 14.5; BUN Creatinine Ratio 14.6; Carbon Dioxide 26.7 mmol/L (21.0-32.0); Chloride 103 mmol/L (98-107); Estimated GFR (African America >60 (>=60); Estimated GFR (Non-African Ame 55 (>=60); Glucose 101 mg/dL (74-106); Potassium 4.2 mmol/L (3.5-5.1); Sodium 140 mmol/L (136-145)
== END 2024-06-21 12:46 | disposition home or self-care (01) ==
LOC: LAB 12:48
PROVIDERS: PCP Internal Medicine; Visit Provider Internal Medicine Interventional Cardiology
DX: I10 Essential (primary) hypertension (principal)
CPT/HCPCS: 36415; 80048

== ENCOUNTER 2025-08-16 06:57 | Outpatient (OUT) | payer MEDICARE, BC, SELFPAY ==
--- OUTSIDE RECORDS SUMMARY | 2025-08-01 13:26 | XMS_ITS | Encounter Summary ---
Author Organization [facility] Address [address] [place] [id number] Care Team Providers Care Dope Edger Name Role Phone Benji Rosa MD Primary Care Provider [phone] Reason for Referral * Imaging (Routine) - AuthorizedSpecialtyDiagnoses / ProceduresReferred By ContactReferred To ContactCardiology Diagnoses Nonrheumatic mitral valve regurgitation Procedures Transthoracic echo (TTE) complete Romina Sandoval MD [address] [place] [address] Phone: tel: fax: [facility] [address] [place] [address] Phone: tel: fax: Referral IDStatusReasonStart DateExpiration DateVisits RequestedVisits [id number] Perform Procedure / Reason for Visit * Imaging (Routine) - AuthorizedSpecialtyDiagnoses / ProceduresReferred By ContactReferred To ContactCardiology Diagnoses Nonrheumatic mitral valve regurgitation Procedures Transthoracic echo (TTE) complete Romina Sandoval MD [address] [place] [address] Phone: tel: fax: [facility] [address] [place] [address] Phone: tel: fax: Referral IDStatusReasonStart DateExpiration DateVisits RequestedVisits [id number] Perform Procedure / Encounter Details DateTypeDepartmentCare Team (Latest Contact Info)Omnbnjxhbkg03/08/2025 1:26 PM EDT - 08/01/2025 11:59 PM EDTHospital Encounter [facility] [address] [place] [address] Nonrheumatic mitral valve regurgitation Discharge Disposition: Home or Self Care () Social History Tobacco UseTypesPacks/DayYears UsedDateSmoking Tobacco: FormerCigarettes Smokeless Tobacco: NeverAlcohol UseStandard Drinks/WeekCommentsYes0 (1 standard drink = 0.6 oz pure alcohol)occasionalUT Safety & EnvironmentAnswerDate Recorded Fear of Current or Ex-PartnerNot on file12/16/2023Emotionally AbusedNot on file 12/16/2023hysically AbusedNot on file12/16/2023Sexually AbusedNot on file 4Physically or Sexually AbusedNot on file12/16/2023Sex and Gender InformationValueDate RecordedSex Assigned at BkybqGdps15/10/2025 9:15 AM EDT Legal KblXhev0504/22/2022 9:09 PM EDTGender NjiklzioQgyy55/10/2025 9:15 AM EDT Sexual OrientationDon't know07/04/2025 9:15 AM EDTdocumented as of this encounter Medications at Time of Discharge MedicationSigDispense QuantityRefillsLast FilledStart DateEnd Date Align 4 mg capsule Take 1 tablet by mouth in the morning. dilTIAZem ER (Tiazac) 240 mg 24 hr capsule Indications:Essential hypertensionTAKE 1 CAPSULE EVERY MORNING 90 capsule Eliquis 5 mg tablet Indications:Paroxysmal atrial fibrillation (CMS/HCC)TAKE 1 TABLET IN THE MORNING AND AT BEDTIME 180 tablet famotidine (Pepcid) 20 mg tablet Take 1 tablet by mouth in the morning. Farxiga 10 mg Indications:PVD (peripheral vascular disease)TAKE 1 TABLET BY MOUTH EVERY DAY IN THE MORNING 90 tablet furosemide (Lasix) 20 mg tablet Indications:Essential hypertensionTAKE 1 TABLET EVERY MORNING 90 tablet lisinopril 5 mg tablet Indications:Essential hypertensionTAKE 1 TABLET BY MOUTH EVERY DAY IN THE MORNING 90 tablet metFORMIN XR (Glucophage-XR) 500 mg 24 hr tablet Take 1,000 mg by mouth daily with evening meal. potassium chloride CR (Klor-Con M10) 10 mEq ER tablet Take 10 mEq by mouth in the morning. Do not crush or chew. rosuvastatin (Crestor) 10 mg tablet Indications:Coronary artery disease, unspecified vessel or lesion type, unspecified whether angina present, unspecified whether [place] or transplanted heartTake 1 tablet (10 mg) by mouth in the evening. 90 tablet rosuvastatin (Crestor) 40 mg tablet Indications:Hyperlipidemia, unspecified hyperlipidemia typeTAKE 1 TABLET BY MOUTH EVERY DAY IN THE MORNING 90 tablet simvastatin (Zocor) 40 mg tablet Take 40 mg by mouth at bedtime.03/23/2023 SITagliptin phos-metformin (Janumet) 50-500 mg tablet Take 1 tablet by mouth with breakfast and with evening meal. traZODone (Desyrel) 50 mg tablet Take 50 mg by mouth at bedtime. zolpidem (Ambien) 10 mg tablet Take by mouth if needed at bedtime for sleep.documented as of this encounter Plan of Treatment Not on file documented as of this encounter Procedures Procedure NamePriorityDate/TimeAssociated DiagnosisCommentsCOMPLETE ECHO (TTE) W/ IMAGING LCRPIXrnqmgm39/08/2025 2:15 PM EDT Nonrheumatic mitral valve regurgitation documented in this encounter Results * COMPLETE ECHO (TTE) W/ IMAGING AGENT (08/01/2025 2:15 PM EDT)Anatomical Region LateralityModalityOtherSpecimen (Source)Anatomical Location / Laterality Collection Method / VolumeCollection TimeReceived Time08/01/2025 1:41 PM EDT Narrative 08/01/2025 5:38 PM EDT 1 [facility] Heart [address] [place] [address] [phone] (fax) Echocardiogram-[facility] Name: CELESTINO PATTON Study Date: 08/01/2025 01:41 PM B/P: / HR: Date of : 1955 Location: [facility] Height: 66 in. Age: 69 year(s) Patient Room: Weight: 330 lb. Gender: Male Patient Status: OutPt BSA: 2.47 m2 Indication: Mitral valve regurgitation, H/O CABG Examination: Echocardiogram (Complete), Lumason Contrast Image Quality: Poor sound transmission in apical views Patient Consent: Procedure explained to patient Conclusions Left Ventricle: The left ventricle is at upper normal limits in size. Global left ventricular systolic function is normal. The EF is 55 % visually. Left ventricular wall thickness is normal. No regional wall motion abnormality. Unable to assess diastolic dysfunction. Right Ventricle: Unable to assess right sided pressures due to lack of measurable tricuspid regurgitation. Left Atrium: The left atrium appears normal in size. Mitral Valve: Mild mitral regurgitation. Aortic Valve: Mild aortic valve regurgitation. Overall Conclusions: Due to suboptimal imaging Lumason contrast was administered for opacification and better delineation of endocardial borders. Measurements Left Ventricle Label Value Normal Value LVOTd 2.1 cm (19cm - 21cm) LVOT VTI 22.6 cm (18cm - 22cm) LVOT PGmax 4 mmHg LVEF visual 55 % LVDd, 2D 6.06 cm (4.2cm - 5.9cm) LVDs, 2D 3.82 cm (2.1cm - 4cm) IVSd, 2D 0.99 cm (0.6cm - 1.1cm) LVPWd, 2D 0.99 cm (0.6cm - 1cm) LV Mass, 2D ASE 247.85 g LV Mass Index, 2D ASE 100.3 g/m?? (50g/m?? - 102.4g/m??) RWT, MM 0.33 (0 - 0.42) LVSVI, 2D 45.3 ml/m2 LVOT PGmean 2 mmHg LVSV_LVOT 78 ml Left Atrium Label Value Normal Value LADs, 2D 4.8 cm (3cm - 4cm) Aortic Valve Label Value Normal Value AV DVI 0.55 AV VTI 42.6 cm Mitral Valve Label Value Normal Value MV E Vmax 0.93 m/s MV A Vmax 0.89 m/s MV E/A 1.04 MV E/E' lateral 12 MV E' lateral 0.08 m/s Tricuspid Valve Label Value Normal Value RA Pressure 8 mmHg Aorta Label Value Normal Value AoAsc 3.3 cm AoRoot, 2D 3.3 cm (1.4cm - 3.8cm) Great Vessels Label Value Normal Value IVC 2.2 cm (1.2cm - 2.3cm) Valvular Assessment LVOT 0.7 - 1.1 m/sec Aortic Valve 1.0 - 1.7 m/sec Mitral Valve 0.6 - 1.3 m/sec Tricuspid Valve 0.3 - 0.7 m/sec Pulmonic Valve 0.6 - 0.9 m/sec Regurgitation Mild Mild No No Stenosis No No No No Max Velocity 1.05 m/sec 1.90 m/s 0.93 m/sec 0.91 m/s Max Gradient 14.00 mmHg 3.00 mmHg Mean Gradient 8.00 mmHg Valve Area 1.9 cm?? Findings Left Ventricle: The left ventricle is at upper normal limits in size. Global left ventricular systolic function is normal. The EF is 55 % visually. Left ventricular wall thickness is normal. No regional wall motion abnormality. Unable to assess diastolic dysfunction. Right Ventricle: Right ventricle is poorly visualized. Unable to assess right sided pressures due to lack of measurable tricuspid regurgitation. Left Atrium: The left atrium appears normal in size. Right Atrium: The right atrium appears normal in size. Mitral Valve: The mitral valve is normal in mobility and thickness. Mild mitral regurgitation. No mitral valve stenosis. Aortic Valve: Aortic valve is poorly visualized. Mild aortic valve regurgitation. No aortic valve stenosis. Tricuspid Valve: Normal tricuspid valve. No tricuspid regurgitation. No tricuspid valve stenosis. Pulmonic Valve: Pulmonic valve is poorly visualized. No pulmonary regurgitation. No pulmonic valve stenosis. Aorta: The aortic root exhibits normal size. The ascending aorta measures 3.30 cm. Ascending aorta is normal in size. Great Vessels: IVC: The IVC is mildly dilated. Respiratory inspiration greater than 50%. Pericardium: No pericardial effusion. Procedure Staff Reading Group: [facility] [employer] [place] Recorder: Deven Fernández RDCS ??Ordering Physician: Romina Sandoval MD ?? Procedure Note Efraín Lindo MD - 08/01/2025 1 1 [facility] Heart Station [address] [place] [address] [phone] (fax) [facility] Name: CELESTINO PATTON Study Date: 08/01/2025 01:41 PM B/P: / HR: Date of : 1955 Location: [facility] Height: 66 in. Age: 69 year(s) Patient Room: Weight: 330 lb. Gender: Male Patient Status: OutPt BSA: 2.47 m2 Indication: Mitral valve regurgitation, H/O CABG Examination: Echocardiogram (Complete), Lumason Contrast Image Quality: Poor sound transmission in apical views Patient Consent: Procedure explained to patient Conclusions Left Ventricle: The left ventricle is at upper normal limits in size. Global left ventricular systolic function is normal. The EF is 55 % visually. Left ventricular wall thickness is normal. No regional wall motion abnormality. Unable to assess diastolic dysfunction. Right Ventricle: Unable to assess right sided pressures due to lack of measurable tricuspid regurgitation. Left Atrium: The left atrium appears normal in size. Mitral Valve: Mild mitral regurgitation. Aortic Valve: Mild aortic valve regurgitation. Overall Conclusions: Due to suboptimal imaging Lumason contrast was administered for opacification and better delineation of endocardial borders. Measurements Left Ventricle Label Value Normal Value LVOTd 2.1 cm (19cm - 21cm) LVOT VTI 22.6 cm (18cm - 22cm) LVOT PGmax 4 mmHg LVEF visual 55 % LVDd, 2D 6.06 cm (4.2cm - 5.9cm) LVDs, 2D 3.82 cm (2.1cm - 4cm) IVSd, 2D 0.99 cm (0.6cm - 1.1cm) LVPWd, 2D 0.99 cm (0.6cm - 1cm) LV Mass, 2D ASE 247.85 g LV Mass Index, 2D ASE 100.3 g/m?? (50g/m?? - 102.4g/m??) RWT, MM 0.33 (0 - 0.42) LVSVI, 2D 45.3ml/m2 LVOT PGmean 2 mmHg LVSV_LVOT 78 ml Left Atrium Label Value Normal Value LADs, 2D 4.8 cm (3cm - 4cm) Aortic Valve Label Value Normal Value AV DVI 0.55 AV VTI 42.6 cm Mitral Valve Label Value Normal Value MV E Vmax 0.93 m/s MV A Vmax 0.89 m/s MV E/A 1.04 MV E/E' lateral 12 MV E' lateral 0.08 m/s Tricuspid Valve Label Value Normal Value RA Pressure 8 mmHg Aorta Label Value Normal Value AoAsc 3.3 cm AoRoot, 2D 3.3 cm (1.4cm - 3.8cm) Great Vessels Label Value Normal Value IVC 2.2 cm (1.2cm - 2.3cm) Valvular Assessment LVOT 0.7 - 1.1 m/sec Aortic Valve 1.0 - 1.7 m/sec Mitral Valve 0.6 - 1.3 m/sec Tricuspid Valve 0.3 - 0.7 m/sec Pulmonic Valve 0.6 - 0.9 m/sec Regurgitation Mild Mild No No Stenosis No No No No Max Velocity 1.05 m/sec 1.90 m/s 0.93 m/sec 0.91 m/s Max Gradient 14.00 mmHg 3.00 mmHg Mean Gradient 8.00 mmHg Valve Area 1.9 cm?? Findings Left Ventricle: The left ventricle is at upper normal limits in size. Global left ventricular systolic function is normal. The EF is 55 % visually. Left ventricular wall thickness is normal. No regional wall motion abnormality. Unable to assess diastolic dysfunction. Right Ventricle: Right ventricle is poorly visualized. Unable to assess right sided pressures due to lack of measurable tricuspid regurgitation. Left Atrium: The left atrium appears normal in size. Right Atrium: The right atrium appears normal in size. Mitral Valve: The mitral valve is normal in mobility and thickness. Mild mitral regurgitation. No mitral valve stenosis. Aortic Valve: Aortic valve is poorly visualized. Mild aortic valve regurgitation. No aortic valve stenosis. Tricuspid Valve: Normal tricuspid valve. No tricuspid regurgitation. No tricuspid valve stenosis. Pulmonic Valve: Pulmonic valve is poorly visualized. No pulmonary regurgitation. No pulmonic valve stenosis. Aorta: The aortic root exhibits normal size. The ascending aorta measures 3.30 cm. Ascending aorta is normal in size. Great Vessels: IVC: The IVC is mildly dilated. Respiratory inspiration greater than 50%. Pericardium: No pericardial effusion. Procedure Staff Reading Group: [facility] [employer] [place] Recorder: Deven Fernández RDCS Ordering Physician: Romina Sandoval MD Authorizing ProviderResult TypeResult StatusEhab Sandoval [facility] ECHO PROCEDURES Final Result documented in this encounter Visit Diagnoses Diagnosis Nonrheumatic mitral valve regurgitation documented in this encounter Administered Medications Medication OrderMAR ActionAction DateDoseRateSite sulfur hexafluoride microsphr (Lumason) injection 24.28 mg 24.28 mg (2 mL), intravenous, Once in imaging, Starting on Wed08/01/25 at 1416, For 1 dose Given08/01/2025 2:17 PM EDT24.28 mgdocumented in this encounter Care Teams Team MemberRelationshipSpecialtyStart DateEnd Date Benji Rosa MD [address] [place] [address] PCP - Crsgkoa67/20/22documented as of this encounter
--- OUTSIDE RECORDS SUMMARY | 2025-08-06 09:30 | XMS_ITS | Encounter Summary ---
Author Organization [facility] Healthcare Address [address] [place] [address] Care Team Providers Care Civil Engineering Draftsperson Name Role Phone Benji Rosa MD Primary Care Provider [phone] Benji Rosa MD Unavailable [phone] Reason for Referral * Imaging (Routine) - AuthorizedSpecialtyDiagnoses / ProceduresReferred By ContactReferred To ContactRadiology Diagnoses History of smoking 30 or more pack years Screening for AAA (abdominal aortic aneurysm) Procedures Vascular US abdominal aorta anuerysm AAA screening Benji Rosa MD 112 [facility] [address] [place] [address] Phone: tel: fax: [facility] [address] [facility] [address] [place] [address] Phone: tel: fax: Referral IDStatusReasonStart DateExpiration DateVisits RequestedVisits [id number]/13/20254/ * Imaging (Routine) - AuthorizedSpecialtyDiagnoses / ProceduresReferred By ContactReferred To ContactRadiology Diagnoses History of smoking 30 or more pack years Procedures CT lung screening low dose Benji Rosa MD 112 [facility] [address] [place] [address] Phone: tel: fax: [facility] [address] [place] [address] Phone: tel: fax: Referral IDStatusReasonStart DateExpiration DateVisits RequestedVisits [id number]/13/20254/ Reason for Visit * ReasonCommentsMedicare Annual Wellness Visit Subsequent Encounter Details DateTypeDepartmentCare Team (Latest Contact Info)Veijqirwubt64/13/2025 9:30 AM EDTOffice Visit NOMGloria [facility]ard [facility] 112 [facility] [address] [place] [phone] Benji Rosa MD 112 [facility] [address] [place] [address] Routine general medical examination at health care facility (Primary Dx); ACP (advance care planning); Type 2 diabetes mellitus with other circulatory complications (HCC); Flu vaccine need; History of smoking 30 or more pack years; Screening for AAA (abdominal aortic aneurysm); Screening for viral disease Social History Tobacco UseTypesPacks/DayYears UsedDateSmoking Tobacco: FormerCigarettes1.550 Started: 1966Smokeless Tobacco: Never Tobacco Cessation:Counseling Given: Not Answered B1300 Health LiteracyAnswerDate RecordedHow often do you need to have someone help you when you read instructions, pamphlets, or other written material from your doctor or pharmacy?Hhedfy7205/06/2025Humiliation, Afraid, Rape, and Kick questionnaireAnswerDate RecordedWithin the last year, have you been afraid of your partner or ex-partner?No05/06/2025Within the last year, have you been humiliated or emotionally abused in other ways by your partner or ex-partner?No 05/06/2025Within the last year, have you been kicked, hit, slapped, or otherwise physically hurt by your partner or ex-partner?No05/06/2025Within the last year, have you been raped or forced to have any kind of sexual activity by your part ner or ex-partner?No05/06/2025Social Connection and Isolation PanelAnswerDate RecordedIn a typical week, how many times do you talk on the phone with family, friends, or neighbors?Once a week05/06/2025How often do you get together with friends or relatives?Once a week05/06/2025How often do you attend religious or buddhist services?Never05/06/2025Do you belong to any clubs or organizations such as religious groups, unions, fraternal or athletic groups, or school groups? Yes05/06/2025How often do you attend meetings of the clubs or organizations you belong to?Never05/06/2025re you , , , , never , or living with a partner?Rzpjzrl4805/06/2025UDIT-CAnswerDate RecordedQ1: How often do you have a drink containing alcohol?Monthly or less05/06/2025Q2: How many drinks containing alcohol do you have on a typical day when you are drinking?1 or Q3: How often do you have six or more drinks on one occasion?Never05/06/2025Overall Financial Resource Strain (CARDIA)AnswerDate RecordedHow hard is it for you to pay for the very basics like food, housing, medical care, and heating?Not very hard05/06/2025PHQ-2AnswerDate RecordedPatient Health Questionnaire-2 Ahoob775[facility] [place] [facility] - Occupational Stress QuestionnaireAnswerDate RecordedDo you feel stress - tense, restless, nervous, or anxious, or unable to sleep at night because your mind is troubled all the time - these days?Patient sjoktnfp76/13/2025Exercise Vital SignAnswerDate RecordedOn average, how many days per week do you engage in moderate to strenuous exercise (like a brisk walk)?1 day05/06/2025On average, how many minutes do you engage in exercise at this level?30 min05/06/2025Hunger Vital SignAnswerDate RecordedWithin the past 12 months, you worried that your food would run out before you got the money to buymore.Never true05/06/2025 Within the past 12 months, the food you bought just didn't last and you didn't have money to get more.Never true05/06/2025PRAPARE - TransportationAnswerDate RecordedIn the past 12 months, has lack of transportation kept you from medical appointments or from getting medications?No05/06/2025In the past 12 months, has lack of transportation kept you from meetings, work, or from getting things needed for daily living?No05/06/2025Housing Stability Vital SignAnswerDate RecordedIn the last 12 months, was there a time when you were not able to pay the mortgage or rent on time?No05/06/2025In the past 12 months, how many times have you moved where you were living?t any time in the past 12 months, were you homeless or living in a fci (including now)?No05/06/2025Sex and Gender InformationValueDate RecordedSex Assigned at OoiitLuki57/08/2024 10:29 PM ESTLegal NjeMmyv0001/06/2023 6:51 PM EDTGender UrfoinneHans31/29/2024 7:37 AM EDTSexual OrientationNot on filedocumented as of this encounter Last Filed Vital Signs Vital SignReadingTime TakenCommentsBlood Gfrdjein075/6808/06/2025 9:28 AM EDT Dtdxz593808/06/2025 9:28 AM EDTTemperature--Respiratory Rate--Oxygen Gfnaldyiji94% 08/06/2025 9:28 AM EDTInhaled Oxygen Concentration--Lbwmyk325 kg (266 lb) 08/06/2025 9:28 AM NICXzzryh326.9 cm (5' 6.5 )08/06/2025 9:28 AM EDTBody Mass Index42.291 9:28 AM EDTdocumented in this encounter Functional Status * Over the past 2 weeks, how often have you been bothered by any of the following problems?QuestionAnswerDate of AssessmentAuthorLittle interest or pleasure in doing thingsNot at all08/06/2025 9:00 AM Rocio Johnson LPN Feeling down, depressed, or hopelessNot at all08/06/2025 9:00 AM Rocio Johnson LPNPatient Health Questionnaire-2 Znyjd454 9:00 AM Rocio Johnson LPN documented as of this encounter Progress Notes * Benji Rosa MD - 08/06/2025 9:30 AM EDT Subjective : Chief Complaint: Donovan Patton is an 69 y.o. male here for an annual wellness visit. I have reviewed and reconciled the history and medication list with the patient today. Current Outpatient Medications Medication Sig Dispense Refill apixaban (Eliquis) 5 MG tablet Take 1 tablet (5 mg) by mouth in the morning and 1 tablet (5 mg) before bedtime. 60 tablet 2 dilTIAZem ER (Tiazac) 240 MG 24 hr capsule Take 240 mg by mouth in the morning. dorzolamide-timolol (Cosopt) 2-0.5 % ophthalmic solution Administer 1 drop into both eyes in the morning and 1 drop before bedtime. famotidine (Pepcid) 20 MG tablet Take 1 tablet by mouth in the morning. Farxiga 10 MG Take 10 mg by mouth in the morning. furosemide (Lasix) 20 MG tablet Take 20 mg by mouth in the morning. latanoprost (Xalatan) 0.005 % ophthalmic solution Administer 1 drop into both eyes at bedtime lisinopril 5 MG tablet Take 5 mg by mouth in the morning. potassium chloride CR (Klor-Con) 10 MEQ ER tablet TAKE 1 TABLET DAILY WITH FOOD 90 tablet 3 rosuvastatin (Crestor) 40 MG tablet Take 40 mg by mouth in the morning. traZODone (Desyrel) 50 MG tablet TAKE 1/2 TABLET AT BEDTIME 45 tablet 3 zolpidem (Ambien) 10 MG tablet Take 1 tablet (10 mg) by mouth at bedtime 90 tablet 0 No current facility-administered medications for this visit. Review of Systems List of current healthcare providers: Patient Care Team: Benji Rosa MD as PCP - General (Internal Medicine) Benji Rosa MD as PCP - ACO [facility] Medicare Annual Visit Over the past 2 weeks, how often have you been bothered by any of the following problems? Little interest or pleasure in doing things: Not at all Feeling down, depressed, or hopeless: Not at all Patient Health Questionnaire-2 Score: 0 Glez Fall Risk History of Falling, Immediate or Within 3 Months: No Secondary Diagnosis: No Ambulatory Aid: Walks without aid/bedrest/nurse assist Health Risk Assessment Form Do you need help eating, bathing, using the toilet, dressing, or getting around your home?: No Can you prepare your own meals?: Yes Can you do your own housework without help?: Yes Can you shop for groceries or clothes without help?: Yes Do you exercise for about 20 minutes 3 or more days a week?: No How confident are you that you can control and manage most of your health problems?: Very confident Can you mange your money, credit cards and accounts, pay bills and taxes?: Yes Cognitive Screening Three Word Registration: Village, Kitchen, Baby Clock Drawing: Normal Clock - 2 Three Word Recall: All 3 words correct - 3 Total Score (0-5 Points): 5 Pain Assessment Pain Score: 6 Advance Care Planning Do you have a living will?: Yes Do you have a medical power of securities attorney?: Yes Who is your medical power of securities attorney?: zackary Objective : BP 124/68 Pulse 56 Ht 5' 6.5 Wt 266 lb SpO2 94% BMI 42.29 kg/m?? No results found. Physical Exam Constitutional: General: He is not [...] normal. Judgment: Judgment normal. Office Visit on 08/06/2025 Component Date Value Ref Range Status Hemoglobin A1C 08/06/2025 6.5 Final Assessment/Plan : The following health maintenance schedule was reviewed with the patient and provided in printed form in the after visit summary: Health Maintenance Topic Date Due Lung Cancer Screening Shared Decision Making Never done Pneumococcal Vaccine: 65+ Years (1 of 2 - PCV) Never done Diabetes: Hemoglobin A1C 11/06/2025 Diabetes: Urine Protein Screening 12/22/2025 Medicare Annual Wellness (AWV) 08/06/2026 Diabetes: Retinopathy Screening 10/31/2026 Colorectal Cancer Screening 12/07/2032 Influenza Vaccine Completed Advance Care Planning Assessment/Plan Diagnoses and all orders for this visit: Routine general medical examination at health care facility ACP (advance care planning) Type 2 diabetes mellitus with other circulatory complications (HCC) - POCT Glycated hemoglobin, total Flu vaccine need History of smoking 30 or more pack years - CT lung screening low dose; Future - Vascular US abdominal aorta anuerysm AAA screening; Future Screening for AAA (abdominal aortic aneurysm) - Vascular US abdominal aorta anuerysm AAA screening; Future Screening for viral disease - Hepatitis C antibody; Future Other orders - Flu vaccine, high dose seasonal, PF ([id number]) (Fluzone High Dose) Follow up in about 4 months (around 12/07/2025) for Perform Labwork. Orders Placed This Encounter Procedures CT lung screening low dose Standing Status: Future Expected Date: 08/06/2025 Expiration Date: 08/06/2026 Reason for exam:: screening Is the patient claustrophobic?: Not Claustrophic Does the patient show any signs or symptoms of lung cancer?: No Is this the first (baseline) CT or an annual exam?: Annual [2] Is there documentation of shared decision making?: Yes Vascular US abdominal aorta anuerysm AAA screening Standing Status: Future Expected Date: 08/06/2025 Expiration Date: 08/06/2026 Reason for exam:: see dx Flu vaccine, high dose seasonal, PF (KRY228) (Fluzone High Dose) Hepatitis C antibody Standing Status: Future Number of Occurrences: 1 Expected Date: 08/06/2025 Expiration Date: 08/06/2026 Print requisition?: No POCT Glycated hemoglobin, total Electronically signed by Benji Rosa MD on August 06, 2025 documented in this encounter Plan of Treatment DateTypeDepartmentCare Team (Latest Contact Info)Ygcwgftlfcn36/09/2026 10:00 AM ESTOffice Visit [facility] 112 [facility] [address] [place] [address] Benji Rosa MD 112 [facility] [address] [place], [place] [id number] NameTypePriorityAssociated DiagnosesOrder ScheduleHepatitis C antibodyLabRoutine Screening for viral disease Expected: 08/06/2025 (Approximate), Expires: 08/06/2026T lung screening low doseImagingRoutine History of smoking 30 or more pack years Expected: 08/06/2025, Expires: 08/06/2026Vascular US abdominal aorta anuerysm AAA screeningImagingRoutine History of smoking 30 or more pack years Screening for AAA (abdominal aortic aneurysm) Expected: 08/06/2025, Expires: 08/06/2026documented as of this encounter Procedures Procedure NamePriorityDate/TimeAssociated DiagnosisCommentsPOCT GLYCATED HEMOGLOBIN, QJOFDUexqphd40/13/2025 9:54 AM EDT Type 2 diabetes mellitus with other circulatory complications (HCC) documented in this encounter Results * POCT Glycated hemoglobin, total (08/06/2025 9:54 AM EDT)ComponentValueRef RangeTest MethodAnalysis TimePerformed AtPathologist SignatureHemoglobin A1C 6.5Specimen (Source)Anatomical Location / LateralityCollection Method / Volume Collection TimeReceived OkumYxymk20/13/2025 9:54 AM EDT Narrative Authorizing ProviderResult TypeResult StatusDaniloren Rosa MDPOINT OF CARE TEST ENTER/EDIT ORDERABLESFinal Result documented in this encounter Visit Diagnoses Diagnosis Routine general medical examination at health care facility- Primary Routine general medical examination at a health care facility ACP (advance care planning) Other specified counseling Type 2 diabetes mellitus with other circulatory complications (HCC) Flu vaccine need History of smoking 30 or more pack years Screening for AAA (abdominal aortic aneurysm) Screening for other and unspecified cardiovascular conditions Screening for viral disease Special screening examination for unspecified viral disease documented in this encounter Care Teams Team MemberRelationshipSpecialtyStart DateEnd Date Benji Rosa MD 112 [facility] [address] [place] [address] PCP - GeneralInternal Medicine03/02/23 Benji Rosa MD 112 [facility] [address], [place] [id number] PCP - ACO Reach12/01/24documented as of this encounter
--- NOTE | 2025-08-16 | CT_ITS ---
The [address] [address] Patient Name: CELESTINO GASTON MRN: [id number] date: 1955 Sex: M Assigned Patient Location: US Current Patient Location: US Accession/Order Number: [id number] Exam Date: 08/16/2025 07:38 Report Date: 08/16/2025 09:06 At the request of: ESTER COLE Procedure: CT lung screening low-dose LOW-DOSE SCREENING CHEST CT WITHOUT CONTRAST COMPARISON: None CLINICAL DATA: Former smoker with 10 pack year history of tobacco use. Spiral axial unenhanced low-dose images were obtained through the chest. Images were reviewed using both narrow and wide window settings. This CT exam was performed using one or more following dose reduction techniques: Automated exposure control, adjustment of the mA and/or kV according to patient size, or use of iterative reconstruction technique. Patient is status post median sternotomy. The heart is borderline prominent. There is subtle calcification of the pericardium on the left however no fluid. Coronary disease is seen. No aortic aneurysm is identified. There is a right paratracheal lymph node with short axis dimension of 12 mm. Endplate spurring is visualized at the spine. There is minor linear atelectasis or scarring. No consolidation, pleural effusion or pneumothorax is seen. There are a couple tiny 2 mm nodular densities including the right upper lobe on axial image 52 and the left upper lobe on axial image 75. Limited cuts through the upper abdomen show cholelithiasis. CT/CT lung screening low-dose IMPRESSION: TINY PULMONARY NODULES. INCIDENTAL CHOLELITHIASIS. Lung RADS category 2 - benign Twelve-month low-dose CT follow-up suggested. Impression dictated by: Emperatriz Mccormack M.D. 08/16/2025 9:06 AM Dictation Location: [place] [address] Electronically authenticated by: [id number] Date: 08/16/2025 09:06
--- NOTE | 2025-08-16 | US_ITS ---
The [address] [address] Patient Name: CELESTINO GASTON MRN: [id number] date: 1955 Sex: M Assigned Patient Location: US Current Patient Location: US Accession/Order Number: [id number] Exam Date: 08/16/2025 07:11 Report Date: 08/16/2025 08:49 At the request of: ESTER COLE Procedure: US aorta ULTRASOUND OF THE ABDOMINAL AORTA CLINICAL DATA: History of tobacco use COMPARISON: CT 03/01/2020 Ultrasound evaluation of the aorta was performed. Assessment is slightly limited by increased bowel gas. No obvious aneurysm is identified. Estimated AP diameter proximally is 2.2 cm. Through the midsegment, the aorta measures 1.9 cm . Distally, the AP diameter measures 2.3 cm. The bifurcation is visualized and the iliac arteries are normal caliber. No periaortic fluid is seen. US/US aorta IMPRESSION: SLIGHT LIMITED STUDY, WITHOUT EVIDENCE OF ANEURYSM. Impression dictated by: Emperatriz Mccormack M.D. 08/16/2025 8:49 AM Dictation Location: [place] [address] Electronically authenticated by: [id number] Y Date: 08/16/2025 08:49
--- OUTSIDE RECORDS SUMMARY | 2025-08-16 07:02 | XMS_ITS | Clinical Summary ---
Author Organization Contacts+ s tem Address [id number] [address] [place] [address] Care Team Providers Care Linux Server Administrator Name Role Phone Benji Rosa MD Primary Care Provider [phone] Allergies Active AllergyReactionsCriticalityNoted VaswSpmczoqwKrfnuxtrr75/21/2019 Blood in stool KovdnjyqrpdDqvtNug42/21/2019 Medications MedicationSigDispense QuantityRefillsLast FilledStart DateEnd DateStatus zolpidem (AMBIEN) 10 mg tablet Take 10 mg by mouth once daily at bedtime.Active aspirin 81 mg Take 81 mg by mouth every other day.Active furosemide (LASIX) 40 mg tablet Take 1 tablet (40 mg total) by mouth daily. 30 tablet 12/20/2018Active sennosides (SENNA SOFT ORAL) Take 1 tablet by mouth daily as needed (constipation). Active famotidine (PEPCID) 20 mg tablet Take 1 tablet by mouth daily.Active potassium chloride (K-DUR) 10 MEQ CR tablet Take 1 tablet by mouth daily.Active dilTIAZem CD (CARTIA XT) 120 mg 24 hr capsule Take 1 tablet by mouth daily.Active apixaban (ELIQUIS) 5 mg tablet Take 1 tablet by mouth 2 (two) times a day.Active rosuvastatin (CRESTOR) 10 mg tablet Take 1 tablet by mouth nightly.Active metoprolol tartrate (LOPRESSOR) 25 mg tablet Take 12.5 mg by mouth 2 (two) times a day.Active Active Problems ProblemNoted DateDiagnosed DatePericardial effusion without cardiac tamponade 08/08/2019Atrial flutter with rapid ventricular eriiarjl04/11/2019CAD (coronary artery disease)12/16/2018Abnormal stress test12/16/2018 Immunizations ImmunizationAdministration DatesNext DueInfluenza, Olefkyylvoh33/11/2018, 08/31/2017 Family History Medical HistoryRelationNameCommentsHeart diseaseMotherHeart attackSisterHeart diseaseSisterRelationNameStatusCommentsFatherDeceasedMotherAliveSisterDeceased Social History Tobacco UseTypesPacks/DayYears UsedDateSmoking Tobacco: FormerCigarettesQuit: 2017Smokeless Tobacco: Former Comments:quit a year ago Alcohol UseStandard Drinks/WeekCommentsNot Currently0 (1 standard drink = 0.6 oz pure alcohol)1 or twice a yearAUDIT-CAnswerDate RecordedFrequency of Alcohol QtcnycnlzwpOklnf83/24/2019Average Number of DrinksNot on file12/18/2018Frequency of Binge DrinkingNot on file12/18/2018ChildcareAnswerDate RecordedChildcare Mttztvs2004/06/2019EmploymentAnswerDate GjanhhdqFmymrtmixbRbuaclh63/13/2019Purpose - LifeAnswerDate RecordedPurpose and direction in diokJafqxgf42/11/2021Sex and Gender InformationValueDate RecordedSex Assigned at BirthNot on fileLegal Sex Male12/14/2018 11:31 AM ESTGender IdentityNot on fileSexual OrientationNot on file Last Filed Vital Signs Vital SignReadingTime TakenCommentsBlood Jytdtgxy986/6908/09/2019 2:00 PM EDT Gxrih667108/09/2019 2:00 PM AQOUygjdsmqhxl08 ??C (98.6 ??F)08/09/2019 2:00 PM EDT Respiratory Vgac8478 2:00 PM EDTOxygen Rjbuyakviy18%08/09/2019 2:00 PM EDTInhaled Oxygen Concentration--Cwtezb988.9 kg (270 lb 15.1 oz)08/08/2019 9:35 PM VTQVbquik406.6 cm (5' 5.98 )08/08/2019 7:18 PM EDTBody Mass Index43.75 08/08/2019 7:18 PM EDT Plan of Treatment Health MaintenanceDue DateLast DoneCommentsStatin Use: Mwwghmtbylxqrg1955 Depression Qvfpniffb16/31/1969Tobacco Hbjyoymog98/31/1969Adult BMI Screening 1975DTaP,Tdap and Td Vaccines (1 - Tdap)1976Zoster (Shingles) Vaccine (1 of 2)2007Fall Risk Lwmyjycbu79/31/2022Influenza Vaccine 510/, 08/07/2021, 08/23/2019, Additional history exists Goals GoalPatient Goal TypeAssociated ProblemsRecent ProgressPatient-Stated?Author home Mikayla Mccord RN Note: Evaluation of progress towards goal: Pt plans to discharge home with self care and with family assistance. Medical Devices Not on file Insurance * Guarantor: Donovan Patton TypeRelation to PatientDate of BirthPhone Billing AddressPersonal/ElllwwEsnr1955 [address] [address] Advance Directives * Full Code (Latest Code Status on File) Date ActivatedDate InactivatedComments4/08/2019 4:04 PM4 3:35 PM * Full Code Date ActivatedDate InactivatedComments12/16/2018 11:43 AM12/20/2018 3:35 PM Care Teams Team MemberRelationshipSpecialtyStart DateEnd Date Benji Rosa MD [address] [phone] PCP - GeneralInternal Medicine12/15/18
--- OUTSIDE RECORDS SUMMARY | 2025-08-16 07:02 | XMS_ITS | Encounter Summary ---
Author Organization [facility] Address [address] [place] [address] Care Team Providers Care Cost Coordinator Name Role Phone Benji Rosa MD Primary Care Provider [phone] Benji Rosa MD Unavailable [phone] Encounter Details DateTypeDepartmentCare Team (Latest Contact Info)Dfbkwrlyybh45/13/2025Travel Social History Tobacco UseTypesPacks/DayYears UsedDateSmoking Tobacco: FormerCigarettes1.550 Started: 1966Smokeless Tobacco: [id number] Health LiteracyAnswerDate RecordedHow often do you need to have someone help you when you read instructions, pamphlets, or other written material from your doctor or pharmacy?Rarely 05/06/2025Humiliation, Afraid, Rape, and Kick questionnaireAnswerDate Recorded Within the last year, have you been afraid of your partner or ex-partner?No 05/06/2025Within the last year, have you been humiliated or emotionally abused in other ways by your partner or ex-partner?No05/06/2025Within the last year, have you been kicked, hit, slapped, or otherwise physically hurt by your partner or ex-partner?No05/06/2025Within the last year, have you been raped or forced to have any kind of sexual activity by your partner or ex-partner?No05/06/2025 Social Connection and Isolation PanelAnswerDate RecordedIn a typical week, how many times do you talk on the phone with family, friends, or neighbors?Once a week05/06/2025How often do you get together with friends or relatives?Once a week05/06/2025How often do you attend jain or judaism services?Never 05/06/2025Do you belong to any clubs or organizations such as jain groups, unions, fraternal or athletic groups, or school groups?Yes05/06/2025How often do you attend meetings of the clubs or organizations you belong to?Never05/06/2025 Are you , , , , never , or living with a partner?Fdkquhk4705/06/2025UDIT-CAnswerDate RecordedQ1: How often do you have a [...] and heating?Not very hard05/06/2025PHQ-2AnswerDate RecordedPatient Health Questionnaire-2 Score0 08/06/2025[facility] [place] [facility] - Occupational Stress QuestionnaireAnswerDate RecordedDo you feel stress - tense, restless, nervous, or anxious, or unable to sleep at night because yourmind is troubled all the time - these days?Patient /13/2025Exercise Vital SignAnswerDate RecordedOn average, how many days per week do you engage in moderate to strenuous exercise (like a brisk walk)?1 day05/06/2025On average, how many minutes do you engage in exercise at this level?30 min05/06/2025Hunger Vital SignAnswerDate RecordedWithin the past 12 months, you worried that your food would run out before you got the money to buymore.Never true05/06/2025Within the past 12 months, the food you [...] were you homeless or living in a care home (including now)?No05/06/2025Sex and Gender InformationValueDate RecordedSex Assigned at UuywpZcah95/08/2024 10:29 PM ESTLegal NstXqqd8401/06/2023 6:51 PM EDTGender QhlbdwchVdtk18/29/2024 7:37 AM EDTSexual OrientationNot on filedocumented as of this encounter Functional Status * Over the past 2 weeks, how often have you been bothered by any of the following problems?QuestionAnswerDate of AssessmentAuthorLittle interest or pleasure in doing thingsNot at all08/06/2025 9:00 AM Rocio Johnson LPN Feeling down, depressed, or hopelessNot at all08/06/2025 9:00 AM Rocio Johnson LPNPatient Health Questionnaire-2 [id number] 9:00 AM Rocio Johnson LPN documented as of this encounter Plan of Treatment DateTypeDepartmentCare Team (Latest Contact Info)Rodinmyrtmm70/09/2026 10:00 AM ESTOffice Visit [facility] [address] [facility] [address] [place] [id number] Benji Rosa MD [address] [place] [address] [place] [address] documented as of this encounter Visit Diagnoses Not on filedocumented in this encounter Care Teams Team MemberRelationshipSpecialtyStart DateEnd Date Benji Rosa MD [address] [facility] [address] [place] [address] [facility]/23 Benji Rosa MD [address] [facility] [address] [place] [address] PCP - ACO Reach12/01/24documented as of this encounter
--- OUTSIDE RECORDS SUMMARY | 2025-08-16 07:02 | XMS_ITS | CCD ---
Author Organization [facility] Care Team Providers Care Business Management Associate Name Role Phone PHYSICIAN, DEFAULT Admitting Unavailable PHYSICIAN, DEFAULT Attending Unavailable PHYSICIAN, DEFAULT Admitting Unavailable PHYSICIAN, DEFAULT Attending Unavailable PHYSICIAN, DEFAULT Admitting Unavailable PHYSICIAN, DEFAULT Attending Unavailable PHYSICIAN, DEFAULT Admitting Unavailable PHYSICIAN, DEFAULT Attending Unavailable PHYSICIAN, DEFAULT Admitting Unavailable PHYSICIAN, DEFAULT Attending Unavailable BENJI ROSA Primary Care Physician DULCE, DR RODRIGUEZ Attending Unavailable ELTAHAWY, DR RODRIGUEZ Admitting Unavailable KELSEY, DR NORMAN Primary Care Unavailable MONICA, DR GEOFFREY [employer] Unavailable ELTAHAWY, DR [...] Unavailable Benji Rosa MD Primary Care Provider [phone] Ginger Simmons Admitting Unavailable Ginger Simmons Attending Unavailable Ginger Simmons Attending Unavailable Ginger Simmons Attending Unavailable Ginger Simmons Admitting Unavailable Ginger Simmons Attending Unavailable Benji Rosa MD Unavailable [phone] ROMINA SANDOVAL Attending Unavailable ROMINA SANDOVAL Referring Unavailable BENJI ROSA Attending Unavailable BENJI ROSA Attending Unavailable BENJI ROSA Attending Unavailable BENJI ROSA Attending Unavailable BENJI ROSA Attending Unavailable Allergies Allergy ClassificationReported Allergen(s)Allergy TypeDate of OnsetReaction(s) Facility (8 sources)Amoxicillin; Translations: [amoxicillin]Drug AllergyEruption due to drug (disorder)[facility] (9 sources)meloxicam; Translations: [meloxicam]Drug Laypfll41-85-1968QrabSxjjhrOhioHealth [facility] (8 sources)Penicillin; Translations: [penicillin][facility] (1 source)meloxicamDrug AllergyTr[facility] (2 sources)Penicillins; Translations: [PENICILLINS]Drug allergy (disorder) 63-57-8828ZcsTrinity Health [facility] (20 sources)meloxicamDrug Yawnkxi27-70-6313PvzmaxbBayhealth Hospital, [facility] (20 sources)PenicillinsDrug Nhfqzdszean67-59-7730SlfhTwin County Regional Healthcare Medications Current Medications MedicationDrug Class(es)DatesSig (Normalized)Sig (Original)apixaban 5 mg oral tablet (20 sources)Factor Xa InhibitorStart: 01-03-2020 End: 73-24-3429yono 1 tablet by mouth in the morningapixaban (Eliquis) 5 MG tablet Indications: Atrial fibrillation, unspecified type (HCC) Take 1 tablet (5 mg) by mouth in the morning and 1 tablet (5 mg) before bedtime. 60 tablet 2 12/07/2023 Activeaspirin 81 mg delayed release oral tablet (4 sources)Platelet Aggregation Inhibitor, Nonsteroidal Anti-inflammatory Drug End: 61-72-1669qhix 1 tablet by mouth every other dayaspirin 81 MG EC tablet Take 81 mg by mouth every other day 0 12/09/2023 Discontinued (Therapy compl eted)azithromycin 250 mg oral tablet (5 sources)Macrolide AntimicrobialStart: 12-22-2024 End: 89-41-8033lrjn 2 tablets by mouth once daily, then take 1 tablet by mouth once dailyazithromycin (Zithromax) 250 MG tablet Indications: Acute sinusitis, recurrence not specified, unspecified location Take 2 tablets (500 mg) by mouth Daily for 1 day, THEN 1 tablet (250 mg) Daily for 4 days. 6 tablet 12/22/2024 12/27/2024 ActiveStart: 08-23-2024 End: 79-48-5959imil 2 tablets by mouth once daily, then take 1 tablet by mouth once dailyazithromycin (Zithromax) 250 MG tablet Indications: Acute sinusitis, recurrence not specified, unspecified location Take 2 tablets (500 mg) by mouth Daily for 1 day, THEN 1 tablet (250 mg) Daily for 4 days. 6 tablet 08/23/2024 08/28/2024 Activebifidobacterium infantis 4 mg oral capsule (4 sources)Start: 04-83-5870knru 1 capsule by mouth once dailyAlign 4 mg oral capsule 4 mg = 1 cap(s), Oral, Daily, # 28 cap(s), Refills(s) 4, Pharmacy: [facility]/pharmacy #[id number], 167, cm, 12/30/23 9:02:00 EST, Height/Length Dosing, 123, kg, 12/30/23 9:02:00 EST, Weight Dosing Start Date: 12/30/23 Status: Ordered cholestyramine resin 4000 mg powder for oral suspension (4 sources)Bile Acid SequestrantStart: 10-30-7163Gacivegp 4 g/9 g oral powder = 1 packet(s), Oral, Daily, # 60 EA, Refills(s) 2, Pharmacy: [facility]/pharmacy #[id number], 167, cm, 12/30/23 9:02:00 EST, Height/Length Dosing, 123, kg, 12/30/23 9:02:00 EST, Weight Dosing Start Date: 12/30/23 Status: Ordereddapagliflozin 10 mg oral tablet (14 sources)Sodium-Glucose Cotransporter 2 Inhibitortake 10 mg by mouth in the morningFarxiga 10 MG Take 10 mg by mouth in the morning. Pvgfrb61 hr dilTIAZem hydrochloride 240 mg extended release oral capsule (20 sources)Calcium Channel BlockerStart: 86-96-5424pnyo 1 capsule by mouth every twenty-four hours in the morningdilTIAZem ER (Tiazac) 240 MG 24 hr capsule Take 240 mg by mouth in the morning. 02/03/2023 ActiveStart: 15-62-7674Jbzcipge CD 240 mg/24 hours Cap-ER 240 mg = 1 cap(s), Oral, Daily, Refills(s) 0, Other (see comment) Start Date: 01/03/20 Status: OrderedStart: 45-63-7791uvek 1 capsule by mouth once dailyCardizem CD 240 mg/24 hours Cap-ER mg cap(s), Oral, Daily, Refills(s) 0, Other (see comment) Start Date: 01/03/20 Status: Ordereddorzolamide 20 mg/ml / timolol 5 mg/ml ophthalmic solution (9 sources)Carbonic Anhydrase Inhibitor, beta-Adrenergic BlockerStart: 79-96-8114bkyj 1 drop(s) into the eye(s) in the morningdorzolamide-timolol (Cosopt) 2-0.5 % ophthalmic solution Administer 1 drop into both eyes in the mor guillermina and 1 drop before bedtime. 03/18/2025 Activefamotidine 20 mg oral tablet (20 sources)Histamine-2 Receptor AntagonistStart: 65-60-3025waug 1 tablet by mouth once daily as neededfamotidine 20 mg Tab 20 mg = 1 tab(s), Oral, Daily, PRN Control of stomach acid, Control of stomachacid Start Date: 05/17/20 Status: Orderedfurosemide 20 mg oral tablet (20 sources)Loop DiureticStart: 40-62-4502ruoy 1 tablet by mouth in the morning furosemide (Lasix) 20 MG tablet Take 20 mg by mouth in the morning. 02/03/2023 ActiveStart: 05-15-4021Eonki 40 mg Tab 20 mg = 0.5 tab(s), Oral, qPM, diuretic/water pill Start Date: 05/27/20 Status: OrderedStart: 50-07-3747kqhm 1 tablet by mouth once dailyLasix 40 mg Tab 40 mg = 1 tab(s), Oral, Daily, Refills(s) 0, diuretic/water pill Start Date: 01/03/20 Status: Orderedlatanoprost 0.05 mg/ml ophthalmic solution (20 sources)Prostaglandin AnalogStart: 68-78-6962degb 1 drop(s) into the eye(s) at bedtimelatanoprost (Xalatan) 0.005 % ophthalmic solution Administer 1 drop into both eyes at bedtime 11/04/2023 Activelisinopril 5 mg oral tablet (14 sources)Angiotensin Converting Enzyme Inhibitortake 1 tablet by mouth in the morninglisinopril 5 MG tablet Take 5 mg by mouth in the morning. 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 0 Active polyethylene glycol 3350 477477 mg / potassium chloride 1480 mg / sodium bicarbonate 5720 mg / sodium chloride 94794 mg powder for oral solution (2 sources)Osmotic LaxativeStart: 90-74-3206OuOUIJTE Jesus oral powder for reconstitution See Instructions, 1 EA, Refill(s) 0, See physician instructions prior to colonoscopy., [facility]/pharmacy #[id number], 168.9, cm, 10/28/22 8:24:00 EST, Height/Length Dosing, 115.4, kg, 10/28/22 8:24:00 EST, Weight Dosing Start Date: 10/28/22 Status: Orderedpotassium chloride 10 meq extended release oral tablet (20 sources)Start: 05-33-4269eroyxgppu chloride CR (Klor-Con) 10 MEQ ER tablet Indications: Microscopic hematuria TAKE 1 TABLET DAILY WITH FOOD 90 tablet 3 08/29/2024 ActiveStart: 00-01-1038pynr 1 capsule by mouth once dailypotassium chloride 10 mEq Cap-ER 10 mEq = 1 cap(s), Oral, Daily, Refills(s) 0, Prophylaxis Start Date: 01/03/20 Status: Ordered End: 72-19-3234nzckzuime chloride CR (Klor-Con M10) 10 MEQ ER tablet Take 10 mEq by mouth in the morning. 12/22/2024 Discontinued (Duplicate order)rosuvastatin calcium 10 mg oral tablet (20 sources)HMG-CoA Reductase InhibitorStart: 15-61-2424wuis 1 tablet by mouth once dailyCrestor 10 mg Tab 10 mg = 1 tab(s), Oral, Daily, Refills(s) 0, High cholesterol Start Date: 01/03/20tatus: Orderedtake 1 tablet by mouth in the morningrosuvastatin (Crestor) 40 MG tablet Take 40 mg by mouth in the morning. Activesimvastatin 40 mg oral tablet (16 sources)HMG-CoA Reductase InhibitorStart: 01-20-2024 End: 29-60-0783zlpnzlusmyq (Zocor) 40 MG tablet Indications: Pure hypercholesterolemia (CMS/HCC) TAKE 1 TABLET AT BEDTIME 90 tablet 3 01/20/2024 12/22/2024 DiscontinuedStart: 12-18-2603qxmv 1 tablet by mouth at bedtime simvastatin (Zocor) 40 MG tablet Indications: Pure hypercholesterolemia (CMS/HCC) Take 1 tablet (40mg) by mouth at bedtime. 100 tablet 4 03/23/2023 ActivetraZODone hydrochloride 50 mg oral tablet (20 sources)Serotonin Reuptake InhibitorStart: 43-62-5537ewpHQPyif (Desyrel) 50 MG tablet Indications: Persistent insomnia TAKE 1/2 TABLET AT BEDTIME 45 tablet 3 06/19/2025 ActiveStart: 29-89-3539hwfLAZdal (Desyrel) 50 MG tablet Indications: Persistent insomnia TAKE 1/2 TABLET AT BEDTIME 45 tablet 3 06/16/2024 ActiveStart: 58-24-5706dliBVEcqr (Desyrel) 50 MG tablet Indications: Persistent insomnia TAKE 1/2 TABLET AT BEDTIME 45 tablet 3 10/04/2023 Active Start: 62-83-7356shvj 1 tablet by mouth once daily at bedtimetraZODONE 50 mg Tab 50 mg = 1 tab(s), Oral, Once a day (at bedtime), Refills(s) 0, Depression Start Date: 10/28/22 Status: Orderedzolpidem tartrate 10 mg oral tablet (20 sources)gamma-Aminobutyric Acid-ergic AgonistStart: 03-23-2024 End: 40-32-0142thak 1 tablet by mouth at bedtimezolpidem (Ambien) 10 MG tablet Indications: Persistent insomnia Take 1 tablet (10 mg) by mouth at bedtime 90 tablet 06/19/2025 09/17/2025 ActiveStart: 27-97-6787odco 1 tablet by mouth once daily at bedtime as needed for sleepAmbien 10 mg Tab 10 mg = 1 tab(s), Oral, Once a day (at bedtime), PRN for sleep, Refills(s) 0 StartDate: 01/03/20 Status: Ordered Completed/Discontinued Medications MedicationDrug Class(es)DatesSig (Normalized)Sig (Original)levoFLOXacin 500 mg oral tablet (4 sources)Quinolone AntimicrobialStart: 04-20-2025 End: 60-30-7754cdqa 1 tablet by mouth once dailylevoFLOXacin (Levaquin) 500 MG tablet Indications: Chronic sinusitis, unspecified location Take 1 tablet (500 mg) by mouth Daily for 7 days 7 tablet 04/20/2025 05/07/2025 Discontinued (Therapy completed) Problems Active Problems Problem ClassificationProblemDateDocumented DateEpisodic/Chronic Administrative/social admission (4 sources)Patient encounter status; Translations: [Other specified counseling] 53-64-6261BsrfgldoQnosqwb dysrhythmias (20 sources)Atrial fibrillation; Translations: [Paroxysmal atrial fibrillation] Onset: 035468-58-6749UtrnuqaUsdjktl kidney disease (20 sources)Chronic kidney disease stage 3; Translations: [Chronic kidney disease stage 3A ]Onset: 029583-42-6427QonzubhOsoufmuf atherosclerosis and other heart disease (20 sources)Coronary arteriosclerosis; Translations: [Atherosclerotic heart disease of huslia coronary artery without angina pectoris]Onset: 03-22-2019 Resolved: 204733-16-1104YfamnrgSvheiyds mellitus with complications (20 sources)Type 2 diabetes mellitus; Translations: [Type 2 diabetes mellitus with other circulatory complications]Onset: 121583-13-3395ImdcfaqRdfxweir mellitus without complication (7 sources)Diabetes kgciazpe82-79-6725LirqwyxOocovcxhx of lipid metabolism (20 sources)Hypercholesterolemia; Translations: [Pure hypercholesterolemia] Onset: 497788-52-6293LjboaxdIwbqutjpwxniry and diverticulitis (20 sources)Diverticulosis of colon; Translations: [Diverticulosis of large intestine without perforation or abscess without bleeding]Onset: 07-16-2008 02-25-7548BwzbcagNkpicnjlrh disorders (20 sources)Gastroesophageal reflux disease without esophagitis; Translations: [Gastro-esophageal reflux disease without esophagitis]Onset: 87-22-7975Dtubzcm Essential hypertension (2 sources)Essential (primary) hypertension; Translations: [Essential (primary) hypertension]Onset: 49-51-1197MynkdnqSckurkiidlbuzhqm hemorrhage (15 sources)Hemorrhage of rectum and anus; Translations: [Hemorrhage of anus and rectum]Onset: 61-83-7290IihblhsmZjleosio (20 sources)Glaucoma; Translations: [Unspecified glaucoma]Onset: 11-02-2022 86-02-7754OduszkcLvdng valve disorders (20 sources)Rheumatic disorders of both mitral and aortic valves; Translations: [Non-rheumatic mitral regurgitation ]Onset: 476617-07-5714CtfbavxSftfo valve disorders (7 sources)Heart miqomm67-63-6846NqujsvdnObwsqnukgvknc and screening for infectious disease (6 sources)Needs influenza immunization; Translations: [Encounter for immunization]10-37-2824HpqryvvyAlyjwhodz of unspecified nature or uncertain behavior (7 sources)Adrenal fskcfpbcyvpaq04-88-9568PipmbsdhZcdhhegfcffpru (20 sources)Arthritis; Translations: [Unspecified osteoarthritis, unspecified site]Onset: 869406-16-5147UnxwqxlQmqmn acquired deformities (20 sources)Equinus contracture of the ankle; Translations: [Contracture, unspecified ankle]Onset: 119628-89-0167NfiadvnXmfvv aftercare (3 sources)Long-term current use of anticoagulant; Translations: [meterman (current) use of anticoagulants]Onset: 68-91-6965AkqozngaBielf and ill-defined heart disease (7 sources)Heart hithbed74-45-2295FxhyqiaAlbas and unspecified benign neoplasm (8 sources)Polyp of colon; Translations: [Polyp of colon]Onset: 01-19-2023 EpisodicOther ear and sense organ disorders (20 sources)Otitis externa; Translations: [Unspecified otitis externa, unspecified ear]Onset: 065582-99-4860SgfjgmuAkbtn ear and sense organ disorders (20 sources)Sensorineural hearing loss, bilateral; Translations: [Sensorineural hearing loss, bilateral]Onset: 153749-57-4393VoyokyjJvyeu endocrine disorders (20 sources)Adrenal incidentaloma; Translations: [Other specified disorders of adrenal gland]Onset: 496482-42-0283JqwihgtUvbhl gastrointestinal disorders (1 source)Intestinal malabsorption; Translations: [Intestinal malabsorption, unspecified]Onset: 03-19-9564PlowerlFtugt gastrointestinal disorders (10 sources)H/O: gastrointestinal disease; Translations: [Personal history of other diseases of the digestive system]Onset: 434927-34-8537NnjuhgjyQzvyq gastrointestinal disorders (7 sources)History of tfmfyebizwgaah83-48-4250QloiajlgNbcsh gastrointestinal disorders (7 sources)History of gastroesophageal reflux adrjste27-86-9279OoscsyigXcgzl gastrointestinal disorders (1 source)Angiodysplasia of colon; Translations: [Angiodysplasia of colon without hemorrhage]Onset: 02-95-7841GfcrbxfcLtzpr gastrointestinal disorders (1 source)Diarrhea; Translations: [Diarrhea, unspecified]Onset: 12-30-2023 EpisodicOther gastrointestinal disorders (1 source)Altered bowel function; Translations: [Change in bowel habit]Onset: 22-44-6912XwuknvqrLwyvg lower respiratory disease (4 sources)Shortness of breath; Translations: [SHORTNESS OF BREATH]Onset: 63-72-5393WysreotjLkgsz lower respiratory disease (1 source)Dyspnea, unspecified; Translations: [DYSPNEA UNSPECIFIED]Onset: 33-41-5623EaqdgheqMztys nervous system disorders (20 sources)Carpal tunnel syndrome; Translations: [Carpal tunnel syndrome, unspecified upper limb]Onset: 548680-89-7829VfniefjZdqlz nutritional; endocrine; and metabolic disorders (20 sources)Severe obesity; Translations: [Morbid (severe) obesity due to excess calories]Onset: 334641-14-2361NykzhjxLearo nutritional; endocrine; and metabolic disorders (1 source)Metabolic syndrome X; Translations: [Metabolic syndrome]Onset: 88-77-2566ZzybexhBhexk nutritional; endocrine; and metabolic disorders (2 sources)Obesity caused by energy imbalance; Translations: [Morbid (severe) obesity due to excess calories]62-73-2750TohgcsmOdklk nutritional; endocrine; and metabolic disorders (2 sources)Body mass index 40+ - severely obese; Translations: [Body mass index (BMI) 40.0-44.9, adult]36-60-9641OljaoaiMeuzx screening for suspected conditions (not mental disorders or infectious disease) (20 sources)Cardiovascular stress test abnormal; Translations: [Abnormal result of other cardiovascular function study]Onset: 367868-85-9214CqxmcrpyLsvls upper respiratory disease (20 sources)Chronic rhinitis; Translations: [Chronic rhinitis]Onset: 03-23-2023 32-40-9024AcobvqmOfafo upper respiratory disease (20 sources)Seasonal allergic rhinitis; Translations: [Other seasonal allergic rhinitis]Onset: 838608-78-4109JwqtdyxAxkww upper respiratory infections (2 sources)Chronic sinusitis; Translations: [Chronic sinusitis, unspecified] 27-29-3237MhpvewkEboec upper respiratory infections (4 sources)Acute sinusitis; Translations: [Acute sinusitis, unspecified] 17-13-7941EgsfhmojRbdaavxmp by other medications and drugs (7 sources)Loop diuretic adverse rqyoeuhq55-02-9568PiikaplfBkjjwbpc codes; unclassified (7 sources)Sleep -04-9520QjskchwSxxvkxj on above:uses CPAPResidual codes; unclassified (20 sources)Obstructive sleep apnea syndrome; Translations: [Obstructive sleep apnea (adult) (pediatric)]Onset: 369535-20-2879XorwoecFgkboxwl codes; unclassified (7 sources)Creatinine level - ujnhirg22-85-9219PjwhupzrLxnuwktac and history of mental health and substance abuse codes (4 sources)Tobacco smoking behavior - vbetnhi39-41-0451GxdyfptCiteuvpiw and history of mental health and substance abuse codes (20 sources)Ex-smoker; Translations: [Personal history of nicotine dependence] Onset: 572322-62-9171NsryopncDqgwauzalmmn (7 sources)Drug therapy urzpaom80-08-1740Zrbicybzmzcw (2 sources)Patient encounter cikmzw73-67-2634 Past or Other Problems Problem ClassificationProblemDateDocumented DateEpisodic/ChronicGenitourinary symptoms and ill-defined conditions (20 sources)Increased frequency of urination; Translations: [Microscopic hematuria]Onset: 222162-99-4195BvfakkslKpmilnhdtyq (20 sources)Hemorrhoids; Translations: [Unspecified hemorrhoids]Onset: 10-30-5254UaqxbmenPmzaw aftercare (20 sources)Drug therapy finding; Translations: [meterman (current) use of anticoagulants]Onset: 219054-17-1070ApjdfwfwHrpao and unspecified benign neoplasm (20 sources)History of polyp of colon; Translations: [Personal history of colonic polyps]Onset: 982193-81-4363GfygqexlLzayd ear and sense organ disorders (20 sources)Bilateral tinnitus; Translations: [Tinnitus, bilateral]Onset: 562210-23-7653QwmdglbnIxfak ear and sense organ disorders (17 sources)Tinnitus; Translations: [Tinnitus, unspecified ear]Onset: 03-23-2023 79-29-8722QynqyjwcRmnuq ear and sense organ disorders (11 sources)Buzzing in ear; Translations: [Tinnitus, unspecified ear]Onset: 394017-88-6712UhmcihacYyrqo lower respiratory disease (1 source)Other forms of dyspnea; Translations: [OTHER FORMS OF DYSPNEA]Onset: 11-97-3918IhrhyrruPjdi-; endo-; and myocarditis; cardiomyopathy (except that caused by tuberculosis or sexually transmitted disease) (20 sources)Pericardial effusion; Translations: [Pericardial effusion without cardiac tamponade]Onset: 908149-64-3179VxqilzilZhgpfhss codes; unclassified (20 sources)Edema of lower extremity; Translations: [Localized edema]Onset: 825929-10-8037XcakxkfuMbmhkime codes; unclassified (20 sources)Persistent insomnia; Translations: [Insomnia, unspecified]Onset: 767684-07-0874Xnutoeyf Results Test NameValueInterpretationReference RangeFacilityLaboratory - Hematology and Cell countson 82-46-0673LdM2j (Bld) [Mass fraction]6.5 %[facility] HealthcareNo Panel Informationon 56-39-8418S[facility] HealthcareLaboratory - Hematology and Cell countson 90-37-5784CrZ5d (Bld) [Mass fraction]5.9 %[facility] HealthcareNo Panel Informationon 02-84-7307GXEY HealthcareLaboratory - Hematology and Cell countson 04-20-2025 HbA1c (Bld) [Mass fraction]5.8 %[facility] HealthcareNo Panel Informationon 04-20-2025 [facility] Opgdkviqmm58ih 15-62-183101Tlfh called back to verify medications. He is NOT taking simvastatin, he is taking rosuvastatin 40mg daily.[facility] 80-48-7053Tdkpeu-up [id number] Celestino Patton 1955 M Date Provider Department Center 12/26/2024 Brigida-ROMINA SANDOVAL CARD [facility] Family History Problem Relation Age of Onset Coronary artery disease Mother Diabetes Father Family Status - Relation Status Age at Mother Father Level of Service:49111 [place] OFFICE/OUTPATIENT ESTABLISHED [facility] UR[facility] W/CREATININEon 79-13-5797KIHJRXR, URINE2.2 mg/dLNormalSee Note:[facility] DiagnosticsComment on above:Result Comment: Reference Range: Reference Range Not establishedPerformed By: #### 0399, 46484, 6517, 7600, 63819 #### [facility] [address], [address] [place] [phone] Avionics Systems Technician: Rodrigo Prescott MDALBUMIN/CREATININE RATIO, RANDOM URINE54 mg/g creatHigh<30Quest DiagnosticsComment on above:Result Comment: The ADA defines abnormalities in albumin excretion as follows: Albuminuria Category Result (mg/g creatinine) Normal to Mildly increased <30 Moderately increased 30-299 Severely increased > OR = 300 The ADA recommends that at least two of three specimens collected within a 3-6 month period be abnormal before considering a patient to be within a diagnostic category.Performed By: #### 0899, 76396, 6517, 7600, 92950 #### [facility] [address] [place] [address], [address] [place] [phone] Avionics Systems Technician: Rodrigo Prescott MDCreatinine (U) [Mass/Vol]41 mg/cKQtuqpa79-639 [facility] DiagnosticsComment on above:Performed By: #### 4799, 368[address], 6517, 7600, 98754 #### [facility] of [place] [address] [employer] Technician: Rodrigo Prescott MDCBC (INCLUDES DIFF/PLT)on 21-69-1329Pvqrovezz (Bld) [#/Vol]0.071 10*3/uLNormal0-200Quest DiagnosticsComment on above:Performed By: #### 6399, 58240, 6517, 7600, 63247 #### [facility] of [address], [address] [place] [address] Avionics Systems Technician: Rodrigo Prescott MDBasophils/100 WBC (Bld)0.8 %NormalQuest DiagnosticsComment on above:Performed By: #### 6399, 97571, 65, 7600, 39716 #### [facility] [place] [address] [employer]ics Systems Technician: Rodrigo Prescott MDEosinophils (Bld) [#/Vol]0.258 10*3/uLNormal 15-500Quest DiagnosticsComment on above:Performed By: #### 6399, 04437, 65, 7600, 59625 #### [facility] of [address], [address] [place] [address] Avionics Systems Technician: Rodrigo Prescott MDEosinophils/100 WBC (Bld)2.9 %NormalQuest DiagnosticsComment on above:Performed By: #### 6399, 69059, 65, 7600, 82817 #### [facility] of [place] [address] [employer] Systems Technician: Rodrigo Prescott MDErythrocyte distribution width (RBC) [Ratio] 13.1 %Gjvibk04.0-15.0Quest DiagnosticsComment on above:Performed By: #### 6399, 10868, 6517, 7600, 95212 #### [facility] [place] [address] [employer] Systems Technician: Rodrigo Prescott MDHematocrit (Bld) [Volume fraction]43.0 %Normal 38.5-50.0Quest DiagnosticsComment on above:Performed By: #### 6399, 94045, 6517, 7600, 19268 #### [facility] [place] [address] Avionics Systems Technician: Rodrigo Prescott MDHemoglobin (Bld) [Mass/Vol]13.5 g/dLNormal 13.2-17.1Quest DiagnosticsComment on above:Performed By: #### 6399, 63031, 6517, 7600, 64007 #### [facility] [address], [address] [place] [address] Avionics Systems Technician: Rodrigo Prescott MDLymphocytes (Bld) [#/Vol]2.439 10*3/uLNormal 850-3900Quest DiagnosticsComment on above:Performed By: #### 6399, 22171, 65, 7600, 14334 #### [facility] of [address], [address] [place] [address] Avionics Systems Technician: Rodrigo Prescott MDLymphocytes/100 WBC (Bld)27.4 %NormalQuest DiagnosticsComment on above:Performed By: #### 6399, 60840, 6517, 7600, 11159 #### [facility] [place] [address] [employer] Systems Technician: Rodrigo Prescott MDMCH (RBC) [Entitic mass]27.8 qeRbcjvr45.0-33.0 Quest DiagnosticsComment on above:Performed By: #### 6399, 21831, 6517, 7600, 67659 #### [facility] of [place] [address] [employer] Technician: Rodrigo Prescott MDMCHC (RBC) [Mass/Vol]31.4 g/dLLow32.0-36.0 Quest DiagnosticsComment on above:Result Comment: For adults, a slight decrease in the calculated MCHC value (in the range of 30 to 32 g/dL) is most likely not clinically significant; however, it should be interpreted with caution in correlation with other red cell parameters and the patient's clinical condition.Performed By: #### 6399, 74961, 6517, 7600, 49782 #### [facility] of [address], [address] [place] [address] [employer] Technician: Rodrigo Prescott MDMCV (RBC) [Entitic vol]88.5 tERlvnzt22.0-100.0 [facility] DiagnosticsComment on above:Performed By: #### 6399, 78528, 6517, 7600, 53795 #### [facility] of [address], [address] [place] [address] [employer] Technician: Rodrigo Prescott MDMonocytes (Bld) [#/Vol]0.472 10*3/uLNormal 200-950Quest DiagnosticsComment on above:Performed By: #### 6399, 34041, 6517, 7600, 69786 #### [facility] of [address], [address] [place] [address] [employer] Technician: Rodrigo Prescott MDMonocytes/100 WBC (Bld)5.3 %NormalQuest DiagnosticsComment on above:Performed By: #### 6399, 13745, 6517, 7600, 45540 #### [facility] of [address], [address] [place] [address] [employer] Technician: Rodrigo Prescott MDNeutrophils (Bld) [#/Vol]5.66 10*3/uLNormal 1500-7800Quest DiagnosticsComment on above:Performed By: #### 6399, 16965, 6517, 7600, 00774 #### [facility] of [address], [address] [place] [address] [employer] Technician: Rodrigo Prescott MDNeutrophils/100 WBC (Bld)63.6 %NormalQuest DiagnosticsComment on above:Performed By: #### 6399, 76869, 6517, 7600, 86534 #### [facility] of [address], [address] [place] [address] [employer] Technician: Rodrigo Prescott MDPlatelet mean volume (Bld) [Entitic vol]11.1 fLNormal7.5-12.5Quest DiagnosticsComment on above:Performed By: #### 6399, 42739, 6517, 7600, 43003 #### [facility] of [address], [address] [place] [address] [employer] Systems Technician: Rodrigo Prescott MDPlatelets (Bld) [#/Vol]293 10*3/uLNormal 140-400Quest DiagnosticsComment on above:Performed By: #### 6399, 63893, 6517, 7600, 87883 #### [facility] of [address], [address] [place] [address] [employer] Technician: Rodrigo Prescott MDRBC (Bld) [#/Vol]4.86 10*6/uLNormal4.20-5.80 Quest DiagnosticsComment on above:Performed By: #### 6399, 39319, 6517, 7600, 26635 #### [facility] of [address], [address] [place] [address] [employer] Systems Technician: Rodrigo Prescott MDWBC (Bld) [#/Vol]8.9 10*3/uLNormal3.8-10.8 Quest DiagnosticsComment on above:Performed By: #### 6399, 49479, 6517, 7600, 36955 #### [facility] of [address] , [address] [place] [address] [employer] Systems Technician: Rodrigo Prescott MDCOMPREHENSIVE METABOLIC PANELon 12-23-2024 Albumin [Mass/Vol]4.3 g/dLNormal3.6-5.1Quest DiagnosticsComment on above: Performed By: #### 6399, 50703, 6517, 7600, 68731 #### [facility] of [address], [address] [place] [address] [employer] Systems Technician: Rodrigo Prescott MDAlbumin/Globulin [Mass ratio]1.3 {ratio}Normal 1.0-2.5Quest DiagnosticsComment on above:Performed By: #### 6399, 31586, 6517, 7600, 00046 #### [facility] of [address], [address] [place] [address] [employer] Systems Technician: Rodrigo Prescott MDALP [Catalytic activity/Vol]41 U/TUjpsdk53-674 [facility] DiagnosticsComment on above:Performed By: #### 6399, 26030, 6517, 7600, 39145 #### [facility] of [address], [address] [place] [address] [employer] Technician: Rodrigo Prescott MDALT [Catalytic activity/Vol]18 U/LNormal9-46 Quest DiagnosticsComment on above:Performed By: #### 6399, 87486, 6517, 7600, 80830 #### [facility] of [address], [address] [place] [address] [employer] Technician: Rodrigo Prescott MDAST [Catalytic activity/Vol]16 U/DMvfnwh70-79 Quest DiagnosticsComment on above:Performed By: #### 6399, 74566, 6517, 7600, 32131 #### [facility] of [address], [address] [place] [address] [employer] Systems Technician: Rodrigo Prescott MDBilirubin [Mass/Vol]0.5 mg/dLNormal0.2-1.2 Quest DiagnosticsComment on above:Performed By: #### 6399, 28649, 6517, 7600, 58636 #### [facility] of [address], [address] [place] [address] [employer] Systems Technician: Rodrigo Prescott MDBUN/CREATININE RATIOSEE NOTE:Normal6-22Quest DiagnosticsComment on above:Result Comment: Not Reported: BUN and Creatinine are within reference range.Performed By: #### 6399, 64107, 6517, 7600, 21184 #### [facility] of [address], [address] [place] [address] [employer] Systems Technician: Rodrigo Presctot MDCalcium [Mass/Vol]9.5 mg/dLNormal8.6-10.3Quest DiagnosticsComment on above:Performed By: #### 6399, 38413, 65, 7600, 60492 #### [facility] of [place] [address] [employer] Technician: Rodrigo Prescott MDChloride [Moles/Vol]103 mmol/RYudpmf19-443 Quest DiagnosticsComment on above:Performed By: #### 6399, 47056, 65, 7600, 37852 #### [facility] of [place] [address] [employer] Technician: Rodrigo Prescott MDCO2 [Moles/Vol]28 mmol/HSmyhun82-27Bxhcu DiagnosticsComment on above:Performed By: #### 6399, 95160, 65, 7600, 76060 #### [facility] of [place] [address] [employer] Technician: Rodrigo BATRESreatinine [Mass/Vol]1.34 mg/dLNormal0.70-1.35 Quest DiagnosticsComment on above:Performed By: #### 6399, 42748, 65, 7600, 74826 #### [facility] of [place] [address] [employer] Technician: Rodrigo Prescott MDGFR/1.73 sq M.predicted among non-blacks MDRD (S/P/Bld) [Vol rate/Area]58 mL/min/{1.73_m2}Low> OR = 60Quest DiagnosticsComment on above:Performed By: #### 6399, 90708, 65, 7600, 69491 #### [facility] of [place] [address] [employer] Technician: Rodrigo Prescott MDGlobulin (S) [Mass/Vol]3.2 g/dLNormal1.9-3.7 Quest DiagnosticsComment on above:Performed By: #### 6399, 34583, 6517, 7600, 66970 #### [facility] [place] [address] [employer] Technician: Rodrigo Prescott MDGlucose [Mass/Vol]114 mg/eFEkdklz98-881Ihmzs DiagnosticsComment on above:Result Comment: Non-fasting reference interval For someone without known diabetes, a glucose value between 100 and 125 mg/dL is consistent with prediabetes and should be confirmed with a follow-up test.Performed By: #### 6399, 58986, 6517, 7600, 27176 #### [facility] [place] [address] [employer] Technician: Rodrigo Prescott MDPotassium [Moles/Vol]4.3 mmol/LNormal3.5-5.3 [facility] DiagnosticsComment on above:Performed By: #### 63Serge, , 65, 7600, 93409 #### [facility] [place] [address] [employer] Technician: Rodrigo Prescott MDProtein [Mass/Vol]7.5 g/dLNormal6.1-8.1Quest DiagnosticsComment on above:Performed By: #### 6399, 96277, 65, 7600, 89879 #### [facility] [place] [address] [employer] Technician: Rodrigo Prescott MDSodium [Moles/Vol]141 mmol/XEiysuc013-116Idlnf DiagnosticsComment on above:Performed By: #### 6399, 70550, 6517, 7600, 46464 #### [facility] [place] [address] [employer] Technician: Rodrigo Prescott MDUrea nitrogen [Mass/Vol]15 mg/dLNormal7-25 Quest DiagnosticsComment on above:Performed By: #### 6399, , 65, 7600, 93389 #### [facility] [address] [place] [address] [employer] Technician: Rodrigo Prescott MDLIPID PANEL, STANDARD 92-54-3929Kwadrpuvoul [Mass/Vol]115 mg/dLNormal<200Quest DiagnosticsComment on above:Order Comment: FASTING:NO FASTING: NOPerformed By: #### 6399, 59036, 6517, 7600, 08575 #### [facility] [address], [address] [place] [address] [employer] Technician: Rodrigo Prescott MDCholesterol in HDL [Mass/Vol]43 mg/dLNormal> OR = 40Quest DiagnosticsComment on above:Order Comment: FASTING:NO FASTING: NOPerformed By: #### 6399, 14779, 6517, 7600, 45006 #### [facility] [address], [address] [place] [address] [employer] Systems Technician: Rodrigo Prescott MDCholesterol in LDL [Mass/Vol]52 mg/dLNormal [facility] DiagnosticsComment on above:Order Comment: FASTING:NO FASTING: NOResult Comment: Reference range: <100 Desirable range <100 mg/dL for primary prevention; <70 mg/dL for patients with CHD or diabetic patients with > or = 2 CHD risk factors. LDL-C is now calculated using the Ursula calculation, which is a validated novel method providing better accuracy than the Friedewald equation in the estimation of LDL-C. Dallas SS et al. ELA. 2013;310(19): 6138-8880 (http://education.TrustRadius.BiancaMed/faq/HNZ013)Performed By: #### 6399, 66936, 6517, 7600, 82738 #### [facility] [address], [address] [place] [address] [employer] Systems Technician: Rodrigo BATRESholesteroyunior.total/Cholesterol in HDL [Mass ratio]2.7 {ratio}Normal<5.0Quest DiagnosticsComment on above:Order Comment: FASTING:NO FASTING: NOPerformed By: #### 6399, 22138, 6517, 7600, 22486 #### [facility] [address], [address] [place] [address] [employer] Systems Technician: Rodrigo RODRÍGUEZ HDL OBKSQUSUBHY95 mg/dL (calc)Normal<130 Quest DiagnosticsComment on above:Order Comment: FASTING:NO FASTING: NOResult Comment: For patients with diabetes plus 1 major ASCVD risk factor, treating to a non-HDL-C goal of <100 mg/dL (LDL-C of <70 mg/dL) is considered a therapeutic option.Performed By: #### 6399, 39345, 6517, 7600, 59923 #### [facility] [address], [address] [place] [address] [employer] Systems Technician: Rodrigo Prescott MDTriglyceride [Mass/Vol]122 mg/dLNormal<150 [facility] DiagnosticsComment on above:Order Comment: FASTING:NO FASTING: NOPerformed By: #### 6399, 33977, 65, 7600, 88992 #### [facility] [address], [address] [place] [address] [employer] Systems Technician: Rodrigo Prescott ANDALUSIA HEALTHSA, TOTALon 74-18-9936ZWP, TOTAL0.21 ng/mL Normal< OR = 4.00Quest DiagnosticsComment on above:Result Comment: The total PSA value from this assay system is standardized against the WHO standard. The test result will be approximately 20% lower when compared to the equimolar-standardized total PSA (Corey Negin). Comparison of serial PSA results should be interpreted with this fact in mind. This test was performed using the Siemens chemiluminescent method. Values obtained from different assay methods cannot be used interchangeably. PSA levels, regardless of value, should not be interpreted as absolute evidence of the presence or absence of disease.Performed By: #### 6399, 11749, 6517, 7600, 38416 #### [facility] [address], [address] [place] [address] [employer] Systems Technician: Rodrigo Prescott MDTS W/REFLEX TO FT4on 27-79-6891LBH W/REFLEX TO FT41.59 mIU/LNormal0.40-4.50Quest DiagnosticsComment on above:Performed By: #### 6399, 71204, 2217, 3980, 90705 #### [facility] [address], [address] [place] [address] [employer] Systems Technician: Rodrigo Prescott MDLaboratory - Hematology and Cell countson 67-72-2615TnY9i (Bld) [Mass fraction]6.1 %NOMS HealthcareNo Panel Informationon 75-18-9558QMKB HealthcareLaboratory - Hematology and Cell countson 08-23-2024 HbA1c (Bld) [Mass fraction]6.5 %[facility] HealthcareNo Panel Informationon 08-23-2024 NOMS HealthcareALL BASIC METABOLIC PANELon 75-64-6228Dzkyi gap [Moles/Vol]14.5 mmol/LNOMS HealthcareCalcium [Mass/Vol]9.0 mg/dL8.5 - 10.1 mg/dLNONM Healthcare Chloride [Moles/Vol]103 mmol/L98 - 107 mmol/LNOMS HealthcareCO2 [Moles/Vol]26.7 mmol/L21.0 - 32.0 mmol/LNOMS HealthcareCreatinine [Mass/Vol]1.30 mg/dL0.70 - 1.30 mg/dLNONM HealthcareGFR/1.73 sq M.predicted CKD-EPI (S/P/Bld) [Vol rate/Area]>6060 - PINFNOMS HealthcareGlucose [Mass/Vol]101 mg/dL74 - 106 mg/dL NOM HealthcareInterpretation and review of laboratory resultsAbnormalNOMS HealthcarePotassium [Moles/Vol]4.2 mmol/L3.5 - 5.1 mmol/LNOMS HealthcareSodium [Moles/Vol]140 mmol/L136 - 145 mmol/LNOMS HealthcareTBH EGFR-NON AF TFEZMHNH20 Low60 - PINFNOMS HealthcareUrea nitrogen [Mass/Vol]19.0 mg/dLHigh7.0 - 18.0 mg/dLNOMS HealthcareUrea nitrogen/Creatinine [Mass ratio]14.6 mg/mgNOMS HealthcareCLINISYNCNOMS HealthcareGastroenterology Office/Clinic Noteon 29-88-8413Udarrfembipbcbue Office/Clinic NoteChief Complaint diarrhea - is now having more [...] (K90.9: Intestinal malabsorption, unspecified) 2. Anticoagulated (Z79.01: meterman (current) use of anticoagulants) 3. Colon polyps (K63.5: Polyp of colon) 4. Hemorrhoids (K64.9: Unspecified hemorrhoids) 5. History of diverticulitis of colon, (Z87.19: Personal history of other diseases of the digestivesystem)History of esophageal reflux 7. Metabolic syndrome (E88.810: Metabolic syndrome) Diarrhea, unspecified (R19.7: Diarrhea, unspecified) Orders: bifidobacterium infantis, 4 mg = 1 cap(s), Oral, Daily, # 28 cap(s), Refills(s) 4, Pharmacy: [facility]/pharmacy #[id number], 167, cm, 12/30/23 9:02:00 EST, Height/Length Dosing, 123, kg, 12/30/23 9:02:00 EST, Weight Dosing cholestyramine, = 1 packet(s), Oral, Daily, # 60 EA, Refills(s) 2, Pharmacy: [facility]/pharmacy #[id number], 167, cm, 12/30/23 9:02:00 EST, Height/Length [...] soft, nontender nondistended Assessment/Plan 1. Anticoagulated (Z79.01: retirement (current) use of anticoagulants) 2. Acid reflux [...] Cystoscopy (05/27/2020), Cardiac catheterisation (12/15 (more content notincluded)...[facility] for RehabilitationComment on above:Result Comment: Electronically Signed By: Troy HOLDEN, Ginger Abebe\.br\Date and Time Signed: 02/10/2408:53 EDTO & P EXAM, ROUTINE, REFLEXon 40-25-6465Fmp and parasites identified Concentration Nom (Stl)CommentInvalid Interpretation [facility], AvonComment on above:Result Comment: No ova, cysts, or parasites seen. One negative specimen does not rule out the possibility of a parasitic infection. Performed at: [address] [id number] PhD Katelyn Chicasformed By: #### [id number], [id number], 42513882, [id number], [id number], [id number] ####[facility] [address] [place], [place] [address]V & P Exam, Routineon 70-40-4810Htq and parasites identified LM Nom (Unsp spec)Final reportInvalid Interpretation [facility], AvonComment on above:Result Comment: These results were obtained using wet preparation(s) and trichrome stained smear. This test does not include testing for Cryptosporidium parvum, Cyclospora, or Microsporidia. Performed at: [facility] [address] [place], [place] [id number] PhD Katelyn Chicasformed By: #### [id number], [id number], 98842911, [id number], [id number], [id number] ####[facility] [address] [place], [place] [address]Klsnixfzzx Elastase, Fecalon 95-20-7321Hphngkrl.pancreatic (Stl) [Mass/Mass]250Invalid Interpretation Code >200T[facility] City HospitalComment on above:Result Comment: Severe Pancreatic Insufficiency: <100 Moderate Pancreatic Insufficiency: 100 - 200 Normal: >200 Performed at: [address] [id number] MD Parminder Oliveraformed By: #### [id number], [id number], 29513403, 7631399604, [id number], 16873058 ####[facility] [address] [place], [place] [address]Xgnowlaftotd, Fecalon 82-70-7495Rbnwojpnuhsm (Stl) [Mass/Mass]18 mcg/gmInvalid Interpretation Code0-120[facility] Comment on above:Result Comment: Concentration Interpretation Follow-Up < 5 - 50 ug/g Normal None >50 -120 ug/g Borderline Re-evaluate in 4-6 weeks >120 ug/g Abnormal Repeat as clinically indicated Performed at: [address] [id number] MD Parminder Oliveraformed By: #### [id number] #### [facility] [address] [place], [place] [address]Jauiuea Panel by PCRon 01-19-2024. coli+jejuni+upsaliensis DNA GHULAM+non-probe Ql (Stl)Not detectedNormalTwin City HospitalComment on above:Result Comment: Testing was performed utilizing reverse associate professor of church music (RT), polymerase chain reaction (PCR), and array hybridization to detect specific gastrointestinal microbial nucleic acid gene sequences associated with the following pathogenic bacteria and viruses:Campylobacter Group (composed of C. coli, C. jejuni, and C. guillermo), Salmonella species, Shigella species (including S. dysenteriae,S. boydii, S. sonnei and S. flexneri), Vibrio Group (composed of V. cholera and V. parahaemolyticus), Yersinia enterocolitica, Norovirus GI/GII, and Rotavirus A. In addition, EPdetects Shiga toxin 1 gene and Shiga toxin 2 gene virulence markers. Shiga toxin producing E. coli (STEC) typically harborone or both genes that encode for Shiga toxins 1 and 2. Campylobacter group, Salmonella species, Shigella species, Vibrio group, Rotavirus A, Shiga Toxin 1, Shiga Toxin 2, Norovirus GI/GII, and Yersinia enterocolitica were tested by Verigene nulcleic acidtest.Performed By: #### [id number], [id number], 25738434, [id number], [id number], [id number] ####[facility] [address] [place], [place] [address]I. coli stx1+stx2 genes GHULAM+non-probe Ql (Stl)NegativeChildren's Hospital for Rehabilitation Comment on above:Performed By: #### [id number], 03509065, 93687731, 2037165906, 2434249397, 51831503 ####[facility] [address] [place], [place] [address]Ymhwipg Panel by PCRNegativeChildren's Hospital for RehabilitationEnteric Panel Intrl QCPassChildren's Hospital for RehabilitationComment on above:Result Comment: Testing was performed utilizing reverse associate professor of church music (RT), polymerase chain reaction (PCR), and array hybridization to detect specific gastrointestinal microbial nucleic acid gene sequences associated with the following pathogenic bacteria and viruses:Campylobacter Group (composed of C. coli, C. jejuni, and C. guillermo), Salmonella species, Shigella species (including S. dysenteriae,S. boydii, S. sonnei and S. flexneri), Vibrio Group (composed of V. cholera and V. parahaemolyticus), Yersinia enterocolitica, Norovirus GI/GII, and Rotavirus A. In addition, EPdetects Shiga toxin 1 gene and Shiga toxin 2 gene virulence markers. Shiga toxin producing E. coli (STEC) typically harborone or both genes that encode for Shiga toxins 1 and 2.Performed By: #### [id number], 74545922, 85271767, 8370222074, 9394983215, 27868882 ####[facility] [address] [place] [address] Norovirus genogroup I+II RNA GHULAM+non-probe Ql (Stl)Not detectedNoAdena Health SystemComment on above:Performed By: #### [id number], 56954080, 05840058, 7905301118, 4285717575, 51971464 ####[facility] [address] [place], [place] [address]Jumjybspz A RNA GHULAM+non-probe Ql (Stl)Not detectedNoAdena Health SystemComment on above:Performed By: #### [id number], 38438868, 30831132, 1696340541, 6308832602, 94738973 ####[address] [address]T. enterica+bongori DNA GHULAM+non-probe Ql (Stl)Not detectedNoAdena Health SystemComment on above:Result Comment: This test result should be correlated with clinical presentations and medical history by a healthcare provider to determine its clinical significance.Performed By: #### [id number], 59201075, 61171123, 9916870807, 9722426946, [id number] ####[facility] [address] [place] [address]Dxepflou species+EIEC invasion plasmid antigen H ipaH gene GHULAM+non-probe Ql (Stl)Not detectedNoAdena Health SystemComment on above:Performed By: #### [id number], 93558628, 14095473, 9433039206, 8234426694, 86456898 ####[facility] [address] [place], [place] [address]M. cholerae+parahaemolyticus+vulnificus DNA GHULAM+non-probe Ql (Stl)Not detected [facility] for RehabilitationComment on above:Performed By: #### [id number], 66411455, 15306640, 9512492849, 8926884050, [id number] ####[facility] [address] [place], [place] [address]M. enterocolitica DNA GHULAM+non- probe Ql (Stl)Not detectedNormChillicothe HospitalComment on above: Performed By: #### [id number], 66029064, 72347281, 3830555286, 2046834425, 51035066 ####[facility] [address] [place], [place] [address]BXiqr PCRon 01-18-2024. difficile toxin A+B Ql (Stl)YESNormChillicothe HospitalComment on above:Performed By: #### [id number], 27523391, 75996277, 4604593149, 9990129924, 31368491 #### [facility] [address] [place], [place] [address]YNxyq PCRUnable to perform test due to consistency of stool. C. Difficile testing will only be performed on diarrheal (unformed) stool unless ileus due to C. difficile is expected. Reference: Clinical Practice Guidelines for Clostridium difficile Infection in Adults, Infection and Hospital Epidemiology February 2010, Vol 31, No 5.NormalTwin City HospitalFecal WBC Lactoferrinon 12-28-2684Rpjxzaspnio Ql (Stl)NegativeNormalNegativeTwin City HospitalComment on above:Result Comment: The semi-quantitative detection of elevated levels of fecal lactoferrin is a markerfor fecal leukocytes and an indication of intestinal inflammation.Performed By: #### [id number], 34086042, 37894386, 5785156066, 5833709765, 54851574 #### [facility] [address] [place], [place] [address]YJUGL OTHER TESTSOrdered By: Jacqueline Frias on 01-18-2024 Lactoferrin Ql (Stl)Negative 1 (01/18/24 2:45 PM)NormalNegativeINTEGRIS BAP[facility] [place] Man SeroComment on above:Interpretive Data: The semi-quantitative detection of elevated levels of fecal lactoferrin is a marker for fecal leukocytes and an indication of intestinal inflammation.Celiac Disease Comprehensive 73-29-8833Oirgszkbkp IgA Ql (S)NegativeInvalid Interpretation CodeNegativeTwin City HospitalComment on above:Performed By: #### [id number] #### [facility] [address] [place], [place] [address]Mnbmjvr peptide IgA Qn (S)6 unit(s)Invalid Interpretation Code 0-19Twin City HospitalComment on above:Result Comment: Negative 0 - 19 Weak Positive 20 - 30 Moderate to Strong Positive >30Performed By: #### [id number] #### [facility] [address] [place], [place] [address]Ayrpkls peptide IgG Qn (S)4 unit(s)Invalid Interpretation Code 0-19T[facility] City HospitalComment on above:Result Comment: Negative 0 - 19 Weak Positive 20 - 30 Moderate to Strong Positive >30Performed By: #### [id number] #### [facility] [address] [place], [place] [address]HaA [Mass/Vol]296 mg/dLInvalid Interpretation Ksml71-120TpmnnvTwin City HospitalComment on above:Result Comment: Performed at: [facility] [id number] PhD Katelyn HahnPerformed By: #### [id number] #### [facility] [address] [place], [place] [address]yGR IgA Qn (S)<2Invalid Interpretation Code0-3FTriHealthComment on above:Result Comment: Negative 0 - 3 Weak Positive 4 - 10 Positive >10 Tissue Transglutaminase (tTG) has been identified as the endomysial antigen. Studies have demonstr- ated that endomysial IgA antibodies have over 99% specificity for gluten sensitive enteropathy.Performed By: #### [id number] #### [facility] [address] [place], [place] [address]mHQ IgG Qn (S)4 unit/mLInvalid Interpretation Code0-5Fstacey [facility]itus Medical CenterComment on above:Result Comment: Negative 0 - 5 Weak Positive 6 - 9 Positive >9Performed By: #### [id number] #### [facility] [address] [place], [place] [address]Hejsxhiwii Visit Summaryon 77-52-5667Opktfbrond Visit Summary CELESTINO PATTON :1955 Visit Date:12/30/2023 Ambulatory Visit Instructions Your Diagnosis Diarrhea due to malabsorption Anticoagulated Colon polyps Hemorrhoids History of diverticulitis of colon, History of esophageal reflux Metabolic syndrome Diarrhea, unspecified Your Care Team Attending Physician - Ginger Simmons MD Primary Care Physician - BENJI ROSA MD [...] (12/07/2022), Cystoscopy (05/27/2020), Cardiac catheterisation (12/15/2018), Open heartsurgery (11/2018), Biliary tract reconstruction (1981), Colonoscopy. Discharge Vitals Heart Rate (Peripheral) 78 Respiratory Rate 16 Blood Pressure 114/75 Height 167 cm Height 66 in Weight 123 kg Weight 270.6 lb BMI 44.1 What to do next Scheduled Follow-Up Appointments 2023 8:15 AM EDT With: Ginger Simmons MD Where: [facility] Digestive HealthNormalFisher [facility]itus Medical CenterConsent for Treatmenton [id number] for Treatment [id number]#1.00TIFFNormalFishMt. Washington Pediatric HospitalGastroenterology Office/Clinic Noteon [id number] Office/Clinic NoteChief Complaint diarrhea and burping HPI Staff This [...] no triggers ?thought to be related to burmese food described as watery stool, 5-6 times [...] (K90.9: Intestinal malabsorption, unspecified) 2. Anticoagulated (Z79.01: meterman (current) use of anticoagulants) 3. Colon polyps (K63.5: Polyp of colon) 4. Hemorrhoids (K64.9: Unspecified hemorrhoids) 5. History of diverticulitis of colon, (Z87.19: Personal history of other diseases of the digestivesystem)History of esophageal reflux 7. Metabolic syndrome (E88.810: Metabolic syndrome) Diarrhea, unspecified (R19.7: Diarrhea, unspecified) Ordered: Calprotectin, Fecal Calprotectin, Fecal Celiac Disease Comprehensive Clostridium Difficile PCR Enteric Panel by PCR Fecal WBC Lactoferrin O & P Exam, Routine Pancreatic Elastase, Fecal Orders: bifidobacterium infantis, 4 mg = 1 cap(s), Oral, Daily, # 28 cap(s), Refills(s) 4, Pharmacy: [facility]/pharmacy #[id number], 167, cm, 12/30/23 9:02:00 EST, Height/Length Dosing, 123, kg, 12/30/23 9:02:00 EST, Weight Dosing cholestyramine, = 1 packet(s), Oral, Daily, # 60 EA, Refills(s) 2, Pharmacy: [facility]/pharmacy #[id number], 167, cm, 12/30/23 9:02:00 EST, Height/Length [...] (12/07/2022), Cystoscopy (05/27/2020), Cardiac catheterisation (12/15/2018), Open heartsurgery (11/2018), Andrews (more content not included)... [facility] for RehabilitationComment on above:Result Comment: Electronically Signed By: Troy HOLDEN, Ginger Abebe\.br\Date and Time Signed: 12/29/2408:20 ESTALL CBC WITH AUTO DIFFon [id number] ABSOLUTE AUTO0.1[facility] Basophils/100 WBC (Bld)1.1 %0.2 - 2.0 %[facility] HealthcareEosinophils/100 WBC (Bld) 2.3 %0.9 - 7.0 %[facility] HealthcareErythrocyte distribution width (RBC) [Ratio]14.5 %11.0 - 15.0 %[facility] HealthcareHematocrit (Bld) [Volume fraction]41.3 %Low42.0 - 54.0 %[facility]OM HealthcareHemoglobin (Bld) [Mass/Vol]12.6 g/dLLow14.0 - 18.0 g/dLNONM HealthcareIMMATURE GRANULOCYTES ABS AUTO0.03NONM HealthcareImmature granulocytes/100 WBC (Bld)0.3 %0.0 - 0.5 %[facility] HealthcareInterpretation and review of laboratory resultsAbnormalNOMS HealthcareLYMPHOCYTES ABSOLUTE AUTO2.6 [facility] HealthcareLymphocytes/100 WBC (Bld)25.7 %20.5 - 60.0 %NOMFreeman Orthopaedics & Sports MedicineH (RBC) [Entitic mass]27.9 pg25.9 - 34.0 pgNOMS [facility] HospitalHC (RBC) [Mass/Vol] 30.5 g/dL29.9 - 35.2 g/dLNONM HealthcareMCV (RBC) [Entitic vol]91.6 fL80.0 - 94.0 fLBothwell Regional Health CenterMONOCYTES ABSOLUTE AUTO0.6NONM HealthcareMonocytes/100 WBC (Bld)5.6 %1.7 - 12.0 %[facility] CenterNEUTROPHILS ABSOLUTE AUTO6.5NORusk Rehabilitation Center Neutrophils/100 WBC (Bld)65.0 %43.0 - 75.0 %[facility] Health CenterPlatelet mean volume (Bld) [Entitic vol]10.9 fL9.5 - 13.5 fLBothwell Regional Health CenterTB EO #0.2NOMS [facility] TB [id number] St. [place] RBC4.51LowNOTenet St. Louis WBC10.0[facility] CLINISYNCBothwell Regional Health CenterLaboratory - Hematology and Cell countson 12-09-2023 HbA1c (Bld) [Mass fraction]6.0 %[facility] CenterNo Panel Informationon 12-09-2023 [facility] CenterCBC AUTO DIFFon [id number] #0.1 103/ulNormal0.0-0.1The [facility] HospitalComment on above:Performed By: #### CBC #### [facility] [address] [address] [address] Umer AmesBasophils/100 WBC (Bld)0.7 %Normal0.2-2.0[facility] Comment on above:Performed By: #### CBC #### [facility] [address] [address] [address] Umer Colon #0.2 103/ulNormal0.0-0.7The [facility] HospitalComment on above: Performed By: #### CBC #### [facility] [address] [address] [address] Umer Bowmanosinophils/100 WBC (Bld)2.3 %Normal0.9-7.0The [facility] Comment on above:Performed By: #### CBC #### [facility] [address] [address] [address] Umer Bowmanrythrocyte distribution width (RBC) [Ratio]14.7 %Wrebrv08.0-15.0 The [facility]rington HospitalComment on above:Performed By: #### CBC #### [facility] [address] [place] [address] Dr. Umer AmesHematocrit (Bld) [Volume fraction]39.4 %Critically low42.0-54.0 The [facility] HospitalComment on above:Performed By: #### CBC #### [facility] [address] [place] [address] Dr. Umer AmesHemoglobin (Bld) [Mass/Vol]12.7 g/dLCritically low14.0-18.0The [facility] HospitalComment on above:Performed By: #### CBC #### [facility] [address] [place] [address] Dr. Umer Rock #0.03 10e3/ulNormal0.00-0.03The [facility] HospitalComment on above:Performed By: #### CBC #### [facility] [address] [place] [address] Dr. Umer Rock %0.3 %Normal0.0-0.5The [facility] HospitalComhealthsource [place] on above: Performed By: #### CBC #### [facility] [address] [place] [address] Dr. Umer Baptiste #2.2 103/ulNormal1.2-3.8The [facility] on above:Performed By: #### CBC #### [facility] [address] [place] [address] Dr. Umer Uptonhocytes/100 WBC (Bld)22.6 %Rqifjg30.5-60.0The German Hospitalment on above:Performed By: #### CBC #### [facility] [address] [place] [address] Dr. Umer HanksUAL DIFF REQNONormalThe [facility] HospitalComment on above: Performed By: #### CBC #### [facility] [address] [place] [address] Dr. Umer Crawley (RBC) [Entitic mass]28.0 izUowgvh90.9-34.0The [facility] HospitalComment on above:Performed By: #### CBC #### [facility] [address] [place] [address] Dr. Umer Thomas (RBC) [Mass/Vol]32.2 g/eGWriika58.9-35.2The [facility] HospitalComment on above:Performed By: #### CBC #### [facility] [address] [place] [address] Dr. Umer Thomas (RBC) [Entitic vol]87.0 qYIfiosq82.0-94.0The [facility] HospitalComment on above:Performed By: #### CBC #### [facility] [address] [place] [address] Dr. Umer Sun #0.5 103/ulNormal0.3-0.8The [facility] HospitalComment on above:Performed By: #### CBC #### [facility] [address] [place] [address] Dr. Umer Couchocytes/100 WBC (Bld)5.0 %Normal1.7-12.0The [facility] Comment on above:Performed By: #### CBC #### [facility] [address] [place] [address] Dr. Umer Contreras #6.7 103/ulCritically high1.4-6.5The [facility] Comment on above:Performed By: #### CBC #### [facility] [address] [place] [address] Dr. Umer Garcíaophils/100 WBC (Bld)69.1 %Kmzvfl90.0-75.0The [facility] HospitalComment on above:Performed By: #### CBC #### [facility] [address] [place] [address] Dr. Umer Cade mean volume (Bld) [Entitic vol]10.0 fLNormal9.5-13.5The [facility] HospitalComment on above:Performed By: #### CBC #### [facility] [address] [place] [address] Dr. Umer Hernandez77 103/wtNawfxp469-690Wzf [facility] HospitalComment on above: Performed By: #### CBC #### [facility] [address] [place] [address] Dr. Umer AmesRBC4.53 106/ulCritically low4.70-6.10The [facility] HospitalComment on above:Performed By: #### CBC #### [facility] [address] [place] [address] Dr. Umer AmesWBC9.7 103/ulNormal4.0-11.0The [facility] HospitalComment on above: Performed By: #### CBC #### [facility] [address] [place] [address] Dr. Umer IzaguirreF CHEM 8 (BAS METB)on 06-78-4324Wtiyv gap [Moles/Vol]16.0 mmol/LNormalThe [facility] HospitalComment on above:Performed By: #### BMP #### [facility] [address] [place] [address] Dr. Umer AmesCalcium [Mass/Vol]8.9 mg/dLNormal8.5-10.1The [facility] Comment on above:Performed By: #### BMP #### [facility] [address] [place] [address] Dr. Umer AmesChloride [Moles/Vol]101 mmol/ERapiub58-692Pas [facility] Comment on above:Performed By: #### BMP #### [facility] [address] [place] [address] Dr. Umer AmesCO2 [Moles/Vol]26.9 mmol/HWluawg15.0-32.0The [facility] Comment on above:Performed By: #### BMP #### [facility] [address] [place] [address] Dr. Umer AmesCreatinine [Mass/Vol]1.57 mg/dLCritically high0.70-1.30The [facility] HospitalComment on above:Performed By: #### BMP #### [facility] [address] [place] [address] Dr. Umer BowmanGFR-AF TIPXPCCM46 mL/min/1.82n6Ukawdcllli low>=60The [facility] HospitalComment on above:Performed By: #### BMP #### [facility] [address] [address] [address] Umer BowmanGFR-NON AF PNEJMTVD11 mL/min/1.93k0Xumbfpcuss low>=60The [facility] HospitalComment on above:Performed By: #### BMP #### [facility] [address] [address] [address] Umer AmesGlucose [Mass/Vol]105 mg/nRQrrhjd81-482Xmb [facility] Comment on above:Performed By: #### BMP #### [facility] [address] [place] [address] Dr. Umer AmesPotassium [Moles/Vol]3.9 mmol/LNormal3.5-5.1The [facility] Comment on above:Performed By: #### BMP #### [facility] [address] [place] [address] Dr. Umer AmesSodium [Moles/Vol]140 mmol/XAwgzhn394-881Ucy [facility] Comment on above:Performed By: #### BMP #### [facility] [address] [place] [address] Dr. Umer AmesUrea nitrogen [Mass/Vol]15.0 mg/dLNormal7.0-18.0The [facility] HospitalComment on above:Performed By: #### BMP #### [facility] [address] [place] [address] Dr. Umer Gregory nitrogen/Creatinine [Mass ratio]9.6 mg/mgNormalThe [facility] HospitalComment on above:Performed By: #### BMP #### [facility] [address] [place] [address] Dr. Umer AmesHEMOGLOBINon 29-50-4867Dahzkywnjg (Bld) [Mass/Vol]12.3 g/dL Critically low14.0-18.0The [facility] HospitalComment on above:Performed By: #### HGB #### [facility] [address] [address] [address] Umer Bowers AUTO DIFFon 30-95-7144IANZ #0.1 103/ulNormal0.0-0.1The [facility] HospitalComment on above:Performed By: #### CBC #### [facility] [address] [address] [address] Umer AmesBasophils/100 WBC (Bld)0.9 %Normal0.2-2.0[facility] Comment on above:Performed By: #### CBC #### [facility] [address] [place] [address] Dr. Umer Colon #0.3 103/ulNormal0.0-0.7The [facility] HospitalComment on above: Performed By: #### CBC #### [facility] [address] [place] [address] Dr. Umer Bowmanosinophils/100 WBC (Bld)2.4 %Normal0.9-7.0The [facility] Comment on above:Performed By: #### CBC #### [facility] [address] [place] [address] Dr. Umer Bowmanrythrocyte distribution width (RBC) [Ratio]14.6 %Uzjurv85.0-15.0 [facility] Medical CenterComment on above:Performed By: #### CBC #### [facility] [address] [place] [address] Dr. Umer AmesHematocrit (Bld) [Volume fraction]41.9 %Critically low42.0-54.0 The [facility] HospitalComment on above:Performed By: #### CBC #### [facility] [address] [place] [address] Dr. Umer AmesHemoglobin (Bld) [Mass/Vol]13.1 g/dLCritically low14.0-18.0The [facility] HospitalComment on above:Performed By: #### CBC #### [facility] [address] [place] [address] Dr. Umer Rock #0.04 10e3/ulCritically high0.00-0.03The [facility] Comment on above:Performed By: #### CBC #### [facility] [address] [address] [address] Umer Rock %0.4 %Normal0.0-0.5The [facility] HospitalComment on above: Performed By: #### CBC #### [facility] [address] [address] [address] Umer Baptiste #2.8 103/ulNormal1.2-3.8The [facility] HospitalComment on above:Performed By: #### CBC #### [facility] [address] [place] [address] Dr. Umer Uptonhocytes/100 WBC (Bld)25.3 %Nuajmx12.5-60.0The [facility] HospitalComment on above:Performed By: #### CBC #### [facility] [address] [place] [address] Dr. Umer Sainz DIFF REQNONormalThe [facility] HospitalComment on above: Performed By: #### CBC #### [facility] [address] [address] [address] Umer Crawley (RBC) [Entitic mass]27.0 iwTrrhkw40.9-34.0The [facility] HospitalComment on above:Performed By: #### CBC #### [facility] [address] [place] [address] Dr. Umer Thomas (RBC) [Mass/Vol]31.3 g/fTJolpyj93.9-35.2The [facility] HospitalComment on above:Performed By: #### CBC #### [facility] [address] [place] [address] Dr. Umer Thomas (RBC) [Entitic vol]86.2 gYGdjojd27.0-94.0The [facility] HospitalComment on above:Performed By: #### CBC #### [facility] [address] [place] [address] Dr. Umer Sun #0.6 103/ulNormal0.3-0.8The [facility] HospitalComment on above:Performed By: #### CBC #### [facility] [address] [place] [address] Dr. Umer Couchocytes/100 WBC (Bld)5.1 %Normal1.7-12.0[facility] Comment on above:Performed By: #### CBC #### [facility] [address] [place] [address] Dr. Umer Contreras #7.4 103/ulCritically high1.4-6.5The [facility] Comment on above:Performed By: #### CBC #### [facility] [address] [place] [address] Dr. mUer Carranzautrophils/100 WBC (Bld)65.9 %Lkykpw55.0-75.0The [facility] HospitalComment on above:Performed By: #### CBC #### [facility] [address] [place] [address] Dr. Umer Artlet mean volume (Bld) [Entitic vol]10.3 fLNormal9.5-13.5The [facility] HospitalComment on above:Performed By: #### CBC #### [facility] [address] [place] [address] Dr. Umer AmesPLT319 103/xgElmdel049-557Igv [facility] HospitalComment on above: Performed By: #### CBC #### [facility] [address] [place] [address] Dr. Umer AmesRBC4.86 106/ulNormal4.70-6.10The [facility] HospitalComment on above:Performed By: #### CBC #### [facility] [address] [place] [address] Dr. Umer AmesWBC11.2 103/ulCritically high4.0-11.0The [facility] HospitalComment on above:Performed By: #### CBC #### [facility] [address] [place] [address] Dr. Umer Torres M/2D COMPLETEon [id number] M/2D COMPLETE Patient: CELESTINO PATTON Exam Date: 11/12/2022 : 1955 Gender:M Ordering : DR ROMINA SANDOVAL M.D. Admission #: [id number] Family : Order #: [id number] CLICK HERE TO VIEW EXAM ECHOCARDIOGRAM REPORT [...] 2.98 cm Aortic Valve AoV Area (Peak Danyel): 2.50 cm2, 2.50 cm2 Deceleration Clark: 1.72 m/s2 Pressure Half-Time: 560.26 ms Peak [...] by: Romina Sandoval M.D. on 11/13/2022 at 12:11[facility] STRESS/REST MULTIon 91-37-1246ZN STRESS/REST MULTIPatient: CELESTINO PATTON Exam Date: 11/12/2022 : 1955 Gender:M Ordering : DR ROMINA SANDOVAL M.D. Admission #: [id number] Family : Order #: [id number] CLICK HERE TO VIEW EXAM RADIOLOGY REPORT [...] STUDY: Excellent. PERFUSION DEFECT: LOCATION: Basal inferior. [place]. SIZE: Small (1-2 segments). SEVERITY: Moderate. TYPE: [...] by: Geoffrey Espino MD on 12/03/2022 at 12:37[facility] CenterPROF 14(COMP METB)on 78-84-9697Zpkzrvs [Mass/Vol]3.9 g/dLNormal3.4-5.0The [facility] HospitalComment on above:Performed By: #### CMP #### [facility] [address] [place] [address] Dr. Umer AmesAlbumin/Globulin [Mass ratio]0.9 {ratio}NormalThe [facility] HospitalComhealthsource [place] on above:Performed By: #### CMP #### [facility] [address] [place] [address] Dr. Umer Willis [Catalytic activity/Vol]61 U/CEltkzd25-076Zsw [facility] Hospitalment on above:Performed By: #### CMP #### [facility] [address] [place] [address] Dr. Umer Delacruz [Catalytic activity/Vol]19 U/XZgsgut14-51Xos [facility] HospitalComment on above:Performed By: #### CMP #### [facility] [address] [address] [address] Umer Blackon gap [Moles/Vol]10.9 mmol/LNormalTr[facility] Comment on above:Performed By: #### CMP #### [facility] [address] [address] [address] Umer AmesAST [Catalytic activity/Vol]17 U/KFeqcja44-00Osw [facility] HospitalComment on above:Performed By: #### CMP #### [facility] [address] [address] [address] Umer AmesBilirubin [Mass/Vol]0.4 mg/dLNormal0.2-1.0[facility] Comment on above:Performed By: #### CMP #### [facility] [address] [address] [address] Umer AmesCalcium [Mass/Vol]9.2 mg/dLNormal8.5-10.1[facility] Comment on above:Performed By: #### CMP #### [facility] [address] [address] [address] Umer AmesChloride [Moles/Vol]102 mmol/JPzijun48-729ZsvTrinity Health System [facility] Comment on above:Performed By: #### CMP #### [facility] [address] [address] [address] Umer AmesCO2 [Moles/Vol]30.1 mmol/SBdqqof29.0-32.0The [facility] Comment on above:Performed By: #### CMP #### [facility] [address] [address] [address] Umer AmesCreatinine [Mass/Vol]1.36 mg/dLCritically high0.70-1.30The [facility] HospitalComment on above:Performed By: #### CMP #### [facility] [address] [address] [address] Owusu ChangEGFR-AF BOTSWANAN>60Normal>=60The [facility] HospitalComment on above:Performed By: #### CMP #### [facility] [address] [address] [address] Umer BowmanGFR-NON AF GDLMWQJF02 mL/min/1.02b3Wwxgmvvhjq low>=60The [facility] HospitalComment on above:Performed By: #### CMP #### [facility] [address] [address] [address] Umer AmesGlobulin (S) [Mass/Vol]4.3 g/dLNormCorey HospitalComment on above:Performed By: #### CMP #### [facility] [address] [address] [address] Umer AmesGlucose [Mass/Vol]97 mg/xJVqatrg75-483Lvo [facility] Comment on above:Performed By: #### CMP #### [facility] [address] [address] [address] Umer AmesPotassium [Moles/Vol]4.0 mmol/LNormal3.5-5.1The [facility] Comment on above:Performed By: #### CMP #### [facility] [address] [address] [address] Umer AmesProtein [Mass/Vol]8.2 g/dLNormal6.4-8.2The [facility] Comment on above:Performed By: #### CMP #### [facility] [address] [address] [address] Umer AmesSodium [Moles/Vol]139 mmol/KIgdszg556-803Qjk [facility] Comment on above:Performed By: #### CMP #### [facility] [address] [address] [address] Umer AmesUrea nitrogen [Mass/Vol]15.0 mg/dLNormal7.0-18.0The [facility] HospitalComment on above:Performed By: #### CMP #### [facility] [address] [address] [address] Umer AmesUrea nitrogen/Creatinine [Mass ratio]11.0 mg/mgNormCorey HospitalComment on above:Performed By: #### CMP #### [facility] [address] [address] [address] Umer Choi - MICROALBUMIN,RANDOM URINE (W/CREAT)on 11-02-5340Avtmzls DL <= 20 mg/L (U) [Mass/Vol]0.6 mg/dLNormalSee Note:[facility] Specifications Control Assistant Comment on above:Order Comment: [facility] Testing performed at: [employer], [employer] [facility], [address] [facility], [address] [place] [address], [address] [place] [address], Insurance Customer Service Specialist: Rodrigo Prescott MD [facility] Collection Date/Time: [facility] Results Received Date/Time: [facility] Reported Date/Time: [id number] Comment: Reference Range: Reference Range Not establishedPerformed By: #### [id number] #### [facility] Default [address] [place], [place] [address]Vnbjbtaasn (U) [Mass/Vol]132 mg/kJGndriy43-152Jycpmyul [place] [facility] SpecialistComment on above:Order Comment: [facility] performed at: [employer] [facility], [address] [place] [address], [address] [place] [address], [address] [place] [address], Insurance Customer Service Specialist: Rodrigo Prescott MD [facility] Collection Date/Time: [facility] Results Received Date/Time: [facility] Reported Date/Time: [id number] By: #### [id number] #### [facility] [address] [place], [place] [address]GVPZIWIPJLCJ/CREATININE RATIO, RANDOM URINE5 mcg/mg creatNormal <30NortBlanchard Valley Health System [facility] SpecialistComment on above:Order Comment: [facility] performed at: [employer] [facility], [address] [place] [address], [address] [place] [address], [address] [place] [address], Insurance Customer Service Specialist: Rodrigo Prescott MD [facility] Collection Date/Time: [facility] Results Received Date/Time: [facility] Reported Date/Time: [id number] Comment: The ADA defines abnormalities in albumin excretion as follows: Albuminuria Category Result (mcg/mg creatinine) Normal to Mildly increased <30 Moderately increased 30-299 Severely increased > OR = 300 The ADA recommends that at least two of three specimens collected within a 3-6 month period be abnormal before considering a patient to be within a diagnostic category.Performed By: #### [id number] #### [facility] Default [address] [place] [address] Vital Signs Date TimeVital SignValuePerforming QdkuvrafqLtqrhzbb76-29-8848 09:28-0400Body wiwmpk516.9 cmBenji Rosa MD Work Phone: [phone] [place], [place] [address]Nvzqezpqfl69-00-0944 09:28-0400Body mass index (BMI) [Ratio]42.29 kg/k5DfdhfdBenji Rosa MD Work Phone: [phone] [place], [place] [address]Mngzrqthib58-25-2906 09:28-0400Body fvxqyi210.66 kgBenji Rosa MD Work Phone: [phone] [place] [address]Ehjxdcfrwz74-50-4415 09:28-0400Diastolic blood qxwuwejy61 mm[Hg]Benji Rosa MD Work Phone: [phone] [place], [place] [address]Qcobadlowg98-77-8238 09:28-0400Heart rate56 /min Benji Rosa MD Work Phone: [phone] [place], [place] [address]Jsqkyqmqha79-88-2150 09:28-5717SoE8% (BldA) [Mass fraction]94 %Benji Rosa MD Work Phone: [phone] [place], [place] [address]Qgsgvmgwfm45-77-3990 09:28-0400Systolic blood ocpipucf131 mm[Hg]Benji Rosa MD Work Phone: [phone])[facility]-300FaithStreetBothwell Regional Health CenterNpeheonbvv55-06-0503 09:00-0400Body juedmr057.9 cmBenji Rosa MD Work Phone: [phone] [place], [place] [address]Natganmjyl31-13-2196 09:00-0400Body mass index (BMI) [Ratio]41.18 kg/y4KvuqtuBenji Rosa MD Work Phone: [phone])[facility] HospitalFaithStreetBothwell Regional Health CenterQjtylzfrhx41-35-4688 09:00-0400Body uuupgn944.48 kgBenji Rosa MD Work Phone: [facility] CenterHugheazand68-88-1510 09:00-0400Diastolic blood okdamgjy20 mm[Hg]Benji Rosa MD Work Phone: [facility] CenterPpqvpsluwx58-64-4156 09:00-0400Heart rate62 /min Benji Rosa MD Work Phone: [facility] CenterYmcmykyjeu76-25-7186 09:00-4199UiS2% (BldA) [Mass fraction]96 %Benji Rosa MD Work Phone: [facility] CenterYjqroqvwwi74-97-7311 09:00-0400Systolic blood kypcpgqh687 mm[Hg]Benji Rosa MD Work Phone: 1(562)[facility]-74[address] CenterEjmhtqndth94-86-6592 08:26-0400Body asrstp469.9 cmBejni Rosa MD Work Phone: [facility] CenterQkvxoekxas77-96-1209 08:26-0400Body mass index (BMI) [Ratio]40.22 kg/c7ExhexoBenji Rosa MD Work Phone: [facility] CenterFnfjxcphir08-36-4084 08:26-0400Body rxzdoe999.76 kgBenji Rosa MD Work Phone: [facility] CenterTpmyiqlqik22-36-1087 08:26-0400Diastolic blood epvygybq15 mm[Hg]Benji Rosa MD Work Phone: [facility] CenterAqgpqzvqlp13-40-4336 08:26-0400Heart rate57 /min Benji Rosa MD Work Phone: [facility] CenterJhqsmtyuus77-10-1707 08:26-2446VeY4% (BldA) [Mass fraction]96 %Benji Rosa MD Work Phone: [facility] CenterBihviovzqf09-39-7255 08:26-0400Systolic blood nzpokgft300 mm[Hg]Benji Rosa MD Work Phone: [facility] CenterDrjhlkcltz23-44-6247 11:20-0500Body hhgbig084.9 cmBenji Rosa MD Work Phone: [facility] CenterZzuyfbenez81-86-0323 11:20-0500Body mass index (BMI) [Ratio]41.65 kg/n8MhjsyjBenji Rosa MD Work Phone: [facility] CenterHnpmomlprw07-19-5728 11:20-0500Body .84 kgBenji Rosa MD Work Phone: [facility] CenterYizdlqcifk16-13-9134 11:20-0500Diastolic blood sjmiqdey84 mm[Hg]Benji Rsoa MD Work Phone: [facility] CenterNhklhaurkm27-66-5904 11:20-0500Heart rate61 /min Benji Rosa MD Work Phone: [facility] CenterGqoufpeonf21-32-3971 11:20-0567KrK2% (BldA) [Mass fraction]97 %Benji Rosa MD Work Phone: [facility] CenterPoirxmftib43-15-6634 11:20-0500Systolic blood mm[Hg]Benji Rosa MD Work Phone: [facility] CenterHthsociptj29-22-1257 08:26-0400Body lfisho443.9 cmBenji Rosa MD Work Phone: [facility] CenterUpelsdmhni64-04-4740 08:26-0400Body mass index (BMI) [Ratio]40.38 kg/o0YeesemBenji Rosa MD Work Phone: [facility] CenterSzpkkubxuh35-41-3528 08:26-0400Body .21 kgBenji Rosa MD Work Phone: [facility] CenterCypuyslach03-39-5296 08:26-0400Diastolic blood nrvbjokz74 mm[Hg]Benji Rosa MD Work Phone: [facility] CenterRctufmnsro89-00-2895 08:26-0400Heart rate61 /min Benji Rosa MD Work Phone: [facility] CenterKrfmtsekyb11-27-3221 08:26-6055HyH6% (BldA) [Mass fraction]95 %Benji Rosa MD Work Phone: [facility] CenterZxwatjxvrb27-40-2181 08:26-0400Systolic blood giyulyvo045 mm[Hg]Benji Rosa MD Work Phone: [facility] CenterQqzipjheof69-78-8457 08:18-0400Blood Pressure LocationMohamad Mouchli 149-3453Rfctoa-Fcxfq[address] [place], [place] 8143304-18-2024 08:18-0400Diastolic blood mm[Hg]Mohamad Mouchli 115-3625Fimrka-Swryp[address] [place], [place] 8143304-18-2024 08:18-0400Heart rate76 /minMohamad Mouchli 382-2036Kuhyza-Prvrw[address] [place], [place] 8143304-18-2024 08:18-0400Systolic blood kjdbkoim069 mm[Hg]Mohamad Mouchli [address] [place], [place] 7110603-07-2024 08:59-0500Blood Pressure LocationMohamad Mouchli 331-7295Lybcsu-Qfkei[address] [place], [place] 8143303-07-2024 08:59-0500Diastolic blood pgxjipza11 mm[Hg]Mohamad Mouchli 875-1728Dsdijy-Xcjot[address] [place], [place] 8143303-07-2024 08:59-0500Heart rate78 /minMohamad Mouchli 461-4050Vbkqli-Cixoq[address] [place], [place] 8143303-07-2024 08:59-0500Respiratory rate16 /minMohamad Mouchli 851-4809Sdejio-Eweze[address] [place], [place] 8143303-07-2024 08:59-0500Systolic blood vwuslxtt382 mm[Hg]Mohamad Mouchli 721-9360Rxjzep-Nsjus[address] [place], [place] 8143302-15-2024 08:43-0500Body stsohm525.9 cmBenji Rosa MD Work Phone: [facility] CenterXekosltyxe23-97-5144 08:43-0500Body mass index (BMI) [Ratio]43.24 kg/i5AoacppBenji Rosa MD Work Phone: [facility] CenterCkogapsdtu28-73-0742 08:43-0500Body mndvaw099.38 kgDaagustin Rosa MD Work Phone: [facility] CenterDcvdicxljt40-58-5383 08:43-0500Diastolic blood enanfkza53 mm[Hg]Benji Rosa MD Work Phone: [facility] CenterXbqjujjegi19-11-7049 08:43-0500Heart rate66 /min Benji Rosa MD Work Phone: [facility] CenterRzwbwyjwgu86-54-0403 08:43-8875XfJ0% (BldA) [Mass fraction]97 %Benji Rosa MD Work Phone: [facility] CenterKrwceaxjtn74-33-1319 08:43-0500Systolic blood wegodeob356 mm[Hg]Benji Rosa MD Work Phone: [facility] CenterXnitlpthxf10-76-8227 09:03-0400Blood Pressure LocationBeth Sam 701-3769Kolfws-MefgbG[facility]beigh Hospital03-28-2023 09:03-0400Body urjrcirzslw91.8 [degF]Noemi Vargas 986-4358Bqdykc-GapktGlenbeigh Hospital03-28-2023 09:03-0400Diastolic blood gifnyzxz88 mm[Hg]Noemi Vargas 420-2448Pszchn-UkaobGlenbeigh Hospital03-28-2023 09:03-0400Heart rate62 /minNoemi Vargas 093-7510Evpqci-PsjctGlenbeigh Hospital03-28-2023 09:03-0400Systolic blood ylxjtrrb009 mm[Hg]Noemi Vargas 910-0401Kzfhdr-HpfxaGlenbeigh Hospital02-13-2023 16:12-0500Diastolic blood vrxukbdf59 mm[Hg]Mat AGUILAR [facility]02-13-2023 16:12-0500Heart rate68 /minMat AGUILAR [address] [place], [place] 4588402-13-2023 16:12-0500 Respiratory rate15 /minMaher SALAM [facility]02-13-2023 16:12-8270FmM9% (BldA) [Mass fraction]96 %Rivero SALAM [facility]02-13-2023 16:12-0500 Systolic blood qnhxxagz673 mm[Hg]Rivero SALAM [facility]02-13-2023 16:00-0500Heart rate69 /minMaher SALAM [facility]02-13-2023 16:00-0500 Respiratory rate19 /minMaher SALAM [facility]02-13-2023 16:00-3786OaJ0% (BldA) [Mass fraction]97 %Rivero SALAM [facility]02-13-2023 16:00-0500 Systolic blood mm[Hg]Rivero SALAM [facility]02-13-2023 15:55-0500 Diastolic blood enczqawh01 mm[Hg]Rivero SALAM [facility]02-13-2023 15:55-0500Heart rate70 /minMaher SALAM [facility]02-13-2023 15:55-0500 Respiratory rate18 /minMaher SALAM [facility]02-13-2023 15:55-6696CwK4% (BldA) [Mass fraction]96 %Rivero SALAM [facility]02-13-2023 15:55-0500 Systolic blood xbzzwkfy737 mm[Hg]Rivero SALAM [facility]02-13-2023 15:50-0500 Respiratory rate18 /minMaher SALAM [address] [place], [place] 4588402-13-2023 15:47-0500Body njylcdhrens64.42 [degF]Rivero SALAM [address] [place], [place] 4588402-13-2023 15:47-0500 Respiratory rate15 /minMaher SALAM [address] [place], [place] 4588402-13-2023 13:56-0500Blood Pressure LocationMaher SALAM [address] [place], [place] 4588402-13-2023 13:56-0500Body kkerbzjkmle81.24 [degF]Rivero SALAM [address] [place], [place] 4588402-13-2023 13:56-0500 Respiratory rate15 /minMaher SALAM [address] [place], [place] 4588401-04-2023 08:21-0500Blood Pressure LocationMaher SALAM 963-6861Idjgwa-Mzgku[address] [place], [place] 8143301-04-2023 08:21-0500Diastolic blood piyysxes69 mm[Hg]Rivero SALAM 071-5249Kgbihi-Ubznt[address] [place], [place] 8143301-04-2023 08:21-0500Heart rate61 /minMaher SALAM 262-3715Skabjv-Lznfq[address] [place], [place] 8143301-04-2023 08:21-0500Respiratory rate16 /minMaher SALAM 931-9053Emgfjc-Tpsvn[address] [place], [place] 8143301-04-2023 08:21-6357XjO8% (BldA) [Mass fraction]98 %Rivero SALAM 477-9522Foxodi-Nvlch[address] [place], [place] 8143301-04-2023 08:21-0500Systolic blood eeugcubo192 mm[Hg]Rivero SALAM 027-4179Flziqx-HzejnCleveland [facility] Encounters Encounter DateEncounter TypeCare ProviderFacilityStart: 08-06-2025 End: 04-10-6665Vqeppn Hung Rosa MD Work Phone: noms [place] [facility] MedinceStart: 08-06-2025 End: 79-00-7591Tmijxy Hung oRsa MD Work Phone: NOMK [place] [facility] MedinceStart: 08-06-2025 End: 68-82-7272Giocv of hemosiderin, quantBenji Rosa MD Work Phone: NOGD HealthcareStart: 08-06-2025 End: 21-95-6572Faxfqrv encounter procedureDaagustin Rosa MD Work Phone: NOFN [place] Menard MedinceComment on above:Routine general medical examination at health care facility (Primary Dx); ACP (advance care planning); Type 2 diabetes mellitus with other circulatory complications (HCC); Flu vaccine need; History of smoking 30 or more pack years; Screening for AAA (abdominal aortic aneurysm); Screening for viral diseaseStart: 08-06-2025 End: 65-35-6211nbodwaijvrDYSTOL B BERRYNot AvailableStart: 08-01-2025 End: 43-79-6657qgggzjibcjIYXO [facility] Centertart: 06-19-2025 End: 65-77-7600FbukyxQahjw M Hemmer PA Work Phone: NOMS [place] [facility]ard MedinceComment on above:Persistent insomniaStart: 05-07-2025 End: 16-67-6742Nhpsnm Hung Rosa MD Work Phone: NOMS CI FMStart: 05-07-2025 End: 25-55-8769Fjzdje Hung Rosa MD Work Phone: NOM[facility] CI FMStart: 05-07-2025 End: 64-36-8595Ztnbnq outpatient visit 15 minutesBenji Rosa MD Work Phone: NOMS CI FMComment on above:Type 2 diabetes mellitus with other circulatory complications (HCC)Start: 05-07-2025 End: 90-50-3752cfdriyckwiIMUYOI B BERRYNot AvailableStart: 04-20-2025 End: 48-04-2913Yghucb Hung Rosa MD Work Phone: NOMS CI FMStart: 04-20-2025 End: 23-62-8408Yadoje Hung Rosa MD Work Phone: [facility] CI FMStart: 04-20-2025 End: 78-90-6450Izorvk outpatient visit 25 minutesDaagustin Rosa MD Work Phone: NOMS CI FMComment on above:Type 2 diabetes mellitus with other circulatory complications (HCC) (Primary Dx); 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 ; Stage 3a chronic kidney disease (CMS-HCC); Paroxysmal atrial fibrillation (HCC); Chronic sinusitis, unspecified locationStart: 04-20-2025 End: 39-67-0775imvdeggydzHZXINH B BERRYNot AvailableStart: 03-16-2025 End: 58-00-9371AgvuqhYwqmk M Hemmer PA Work Phone: NOMS CI FMComment on above:Persistent insomniaStart: 12-26-2024 End: 86-53-6086LnpipsUzgfkd B Berry MD Work Phone: NOMS CI FMComment on above:Persistent insomniaStart: 12-26-2024 End: 89-72-3172ljnwlccxvePJER [facility] Centertart: 12-22-2024 End: 65-81-5708Cphukm Hung Rosa MD Work Phone: NOM[facility] CI FMStart: 12-22-2024 End: 12-68-1705Nyzxhf Hung Roas MD Work Phone: NOM[facility] CI FMStart: 12-22-2024 End: 67-06-1860phyjucviekPPLOUW B BERRYNot AvailableStart: 12-22-2024 End: 65-91-2128Dykkva outpatient visit 25 minutesDaagustin Rosa MD Work Phone: NOMS CI FMComment on above:Type 2 diabetes mellitus with other circulatory complications (CMS/HCC) (Primary Dx); Stage 3a chronic kidney disease (HCC) (CMS/HCC); Paroxysmal atrial fibrillation (CMS/HCC); 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 (CMS/HCC); Prostate cancer screening; Morbid (severe) obesity due to excess calories (CMS/HCC); Body mass index (BMI) 40.0-44.9, adult (CMS/HCC); Acute sinusitis, recurrence not specified, unspecified locationStart: 09-26-2024 End: 06-15-2385JeibybSzgtcStef QURESHI Work Phone: [phone] CI FMComment on above:Persistent insomniaStart: 09-04-2024 End: 60-76-3926HljxpeVzznlj B Berry MD Work Phone: [phone] CI FMComment on above:Persistent insomniaStart: 08-31-2024 End: 24-72-5896AdbnxgAlbszx B Berry MD Work Phone: [phone] CI FMComment on above:Persistent insomniaStart: 08-29-2024 End: 66-35-8505LbdubjCkyijv B Berry MD Work Phone: NOMS CI FMComment on above:Persistent insomnia; Microscopic hematuriaStart: 08-23-2024 End: 80-72-9846Wleyjq flowsJuan Antonio Rosa MD Work Phone: [phone] CI FMStart: 08-23-2024 End: 27-55-2764Jfdolu Hung Rosa MD Work Phone: [phone] CI FMStart: 08-23-2024 End: 79-83-3152Fbndw of hemosiderin, quantBenji Rosa MD Work Phone: NOMS HealthcareStart: 08-23-2024 End: 87-81-7264Hbwihty encounter Silvia Rosa MD Work Phone: NOMS CI FMComment on above:Routine general medical examination at health care facility (Primary Dx); ACP (advance care planning); Flu vaccine need; Type 2 diabetes mellitus with other circulatory complications (CMS/HCC); Acute sinusitis, recurrence not specified, unspecified locationStart: 08-23-2024 End: 11-12-2281qujfdrrjojKKMFGM B BERRYNot AvailableStart: 06-21-2024 End: 92-75-9694Vcbpjrjql Result EncounterGeneric External Data ProviderNOMS External Department UnsolicitedStart: 06-21-2024 End: 58-81-9104Fasvylvad Result EncounterGeneric External Data ProviderNOMS External Department UnsolicitedStart: 02-10-2024 End: 15-42-7456duwdqhrureFfyhqap A. CocoliFacility:[facility] DHStart: 02-10-2024 End: 37-46-2398Dczqaxj encounter procedureGinger Simmons [phone]-TtmbqC[facility] Clinic [facility] Start: 01-18-2024 End: 76-40-9528gmupbarbuiXomirpg A. MouchliFacility:FTMCStart: 01-18-2024 End: 37-46-4002Dkq Drop offGinger Quinonez. [facility] Start: 12-30-2023 End: 60-25-7022aleeauuetgHpgowum A. MouchliFacility:FTMCStart: 12-30-2023 End: 34-46-1066Ohotazl encounter procedureGinger Simmons [phone]-YwbaiCleveland Clinic Hillcre[facility] Start: 01-28-8220Zhquth flowsJuan Antonio Rosa MD Work Phone: noMS CI FMStart: 68-95-4322Kdvaeg flowsheetBenji Rosa MD Work Phone: noms CI FMStart: 17-04-5765Szvchtmyk Result Encounter Benji Rosa MD Work Phone: noms External Department UnsolicitedStart: 12-09-2023 End: 19-26-9664Rjkaxa outpatient visit 25 minutesDaagustin Rosa MD Work Phone: noms CI FMComment on above:Type 2 diabetes mellitus with other circulatory complications (CMS/HCC) (Primary Dx); Stage 3a chronic kidney disease (HCC) (CMS/HCC); 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 (CMS/HCC); History of coronary artery bypass surgery; Pure hypercholesterolemia (CMS/HCC); Prostate cancer screening; Class 3 severe obesity due to excess calories with serious comorbidity and body mass index (BMI) of40.0 to 44.9 in adult (CMS/HCC)Start: 58-53-5491Tdfxi abstractingBenji Rosa MD Work Phone: noms CI FMStart: 03-83-0619Zlvlnfojh for other preprocedural examinationDR EHAB ELTAHAWYThe Great Barrington HospitalStart: 03-19-2023 End: 81-56-2983bdfloidjujJL EHAB ELTAHAWYFacility:E7Kabtj: 03-19-2023 End: 09-77-9202Qmprcxspr for other preprocedural examinationDR [facility]AB [facility] Facility:T2Jggvf: 02-24-2023 End: 15-22-7009avircylcehEG EHAB ELTAHAWYFacility:R7Nrvhe: 01-19-2023 End: 19-97-9114Qruqctq encounter procedureNoemi Vargas [phone]-IhrsnCleveland Clinic Hill[facility] Start: 12-07-2022 End: 32-34-2432Qoncyud encounter procedureaMt AGUILAR [facility] Start: 12-02-2022 End: 59-43-1745xyfqczzposMX EHAB ELTAHAWYFacility:U0Ktgmt: 11-12-2022 End: 12-26-5101fffssdvdttON EHAB ELTAHAWYFacility:Y4Yxpqc: 10-28-2022 End: 57-45-7463Sduvchu encounter procedureMaher SALAM [phone]-UpdhaCleveland Clinic Hill[facility] Start: 03-01-2019 End: 01-60-4062Ogudwxs encounter procedureDEFAULT PHYSICIANFacility:[facility]ITALtart: 02-27-2019 End: 20-15-6923Hqbqjuf encounter procedureDEFAULT PHYSICIANFacility:[facility]ITALtart: 02-07-2019 End: 26-78-9899Dtnicmc encounter procedureDEFAULT PHYSICIANFacility:[facility]tart: 12-21-2018 End: 14-22-7932Flddrjo encounter procedureDEFAULT PHYSICIANFacility:[facility]ITALtart: 12-07-2018 End: 59-40-8526Ytzkgcn encounter procedureDEFAULT PHYSICIANFacility:[facility] Procedures DateProcedureProcedure DetailPerforming ClinicianStart: 09-78-3942Oooxkqhzja glycosylated v4fDnlvvnagustin Rosa MD Work Phone: Start: 38-39-6147Miveheakdx glycosylated o8iLgxixoagustin Rosa MD Work Phone: Start: 80-14-7787Uoxalhegni glycosylated h5tIieowjBenji Rosa MD Work Phone: Start: 33-70-4149Veghnzqaby glycosylated s3uLsptauagustin Rosa MD Work Phone: Start: 73-90-7371Sbbdxjaonw glycosylated s9uYpgcukagustin Rosa MD Work Phone: Start: 02-00-8191KKQ BASIC METABOLIC PANELGeneric External Data ProviderStart: 98-20-4815UUM CBC WITH AUTO DIFFBenji Rosa MD Work Phone: Start: 13-04-3492Yfkpbykdij glycosylated g9gOapwcdBenji Rosa MD Work Phone: Start: 58-23-5093Vxqadcb of coronary artery bypass graftingHistory of coronary artery bypass surgeryBenji Rosa MD Work Phone: Start: 08-89-1190YcmtwhfkoilZgovvk Berry MD Work Phone: Start: 75-61-7657VesyiszmzfyIjogk SALAM Start: 12-71-1693PimpafqahyEngza SALAM Comment on above:cystoscopy, bilateral retrograde pyelogramStart: 89-00-0699Ygmbwjf catheterizationMaher SALAM Start: 26-24-1805Smre heart surgeryMaher SALAM Start: 35-40-5380Ictshab tract reconstructionMaher SALAM ColonoscopyMaher SALAM History of coronary artery bypass graftingHistory of coronary artery bypass surgeryBenji Rosa MD Work Phone: Plan of Treatment DateCare ActivityDetailAuthorStart: 87-70-7438Tqepgktai for malignant neoplasm of colonNOMS HealthcareStart: 34-71-8465Nlxvtmrd screeningDiabetes: Retinopathy ScreeningNONM HealthcareStart: 10-13-2026Medicare Annual Wellness (AWV)Medicare Annual Wellness (AWV)[facility]OM[facility] HealthcareStart: 93-36-1447Dtsloguj screeningDiabetes: Retinopathy ScreeningNOMS HealthcareStart: 96-74-9259Hginj screening for proteinDiabetes: Urine Protein ScreeningNONM HealthcareStart: 12-03-2025 End: 40-53-1339Meoiqyg encounter tnexnbqtw53/09/2026 10:00 AM EST Office Visit [facility] [place] [address] [facility] [address] [place] [address] Benji Rosa MD [address] [place] [address] [place] [address] [facility] [place] [facility] CenternceStart: 11-06-2025 Hemoglobin A1c measurementDiabetes: Hemoglobin O9BZIEL HealthcareStart: 10-30-2025Medicare Annual Wellness (AWV)Medicare Annual Wellness (AWV)[facility] HealthcareStart: 02-11-3197Gwcnofpvas A1c measurementDiabetes: Hemoglobin A1C [facility] HealthcareStart: 08-06-2025 End: 65-08-2003DW Chest for screening WO contrastCT lung screening low dose Imaging Routine History of smoking 30 or more pack years Expected: 08/06/2025, Expires: 08/06/2026[facility] HealthcareComment on above:Expected: 08/06/2025, Expires: 08/06/2026Start: 08-06-2025 End: 68-17-1088Sdjaddlvt C virus Ab [Presence] in Serum or Plasma by Immunoassay Hepatitis C antibody Lab Routine Screening for viral disease Expected: 08/06/2025 (Approximate), Expires: 08/06/2026[facility] Healthcare Work Phone: Comment on above:Expected: 08/06/2025 (Approximate), Expires: 08/06/2026Start: 08-06-2025 End: 75-63-2042JK Abdominal Aorta for screeningVascular US abdominal aorta anuerysm AAA screening Imaging Routine History of smoking 30 or more pack years Screening for AAA (abdominal aortic aneurysm) Expected: 08/06/2025, Expires: 08/06/2026[facility] HealthcareComment on above:Expected: 08/06/2025, Expires: 08/06/2026Start: 08-06-2025 End: 41-86-0095Fnxibdr encounter procedureNOMS CI FMComment on above:Arrived Start: 23-01-8374Dblptiuhro A1c measurementDiabetes: Hemoglobin L8DDACU HealthcareStart: 31-96-8045Uxrxmgxos vaccinationInfluenza Vaccine (#1)[facility] HealthcareStart: 05-07-2025 End: 18-31-4128Xlaodeg encounter procedureNOMS CI FMComment on above:Arrived Start: 04-20-2025 End: 59-87-4416Evjplhb encounter procedureNOMS CI FMComment on above:Arrived Start: 40-47-6118Bxgqxmbubf A1c measurementDiabetes: Hemoglobin W7CIVUJ HealthcareStart: 32-94-5038Kdrvzzju screeningDiabetes: Retinopathy ScreeningNONM HealthcareStart: 12-22-2024 End: 25-93-1205Spyhqfhmreuvu metabolic 2000 panel - Serum or PlasmaComprehensive metabolic panel Lab Routine Type 2 diabetes mellitus with other circulatory complications ([facility]/HCC) Stage 3a chronic kidney disease (HCC) ([facility]/HCC) Paroxysmal atrial fibrillation ([facility]/HCC) Expected: 12/22/2024 (Approximate), Expires: 12/22/2025NONM HealthcareComment on above:Expected: 12/22/2024 (Approximate), Expires: 12/22/2025Start: 12-22-2024 End: 60-77-8607Uuxmf 1996 panel - Serum or PlasmaLipid panel Lab Routine Type 2 diabetes mellitus with other circulatory complications (CMS/HCC) Expected: 12/22/2024 (Approximate), Expires: 12/22/2025[facility] HealthcareComment on above: Expected: 12/22/2024 (Approximate), Expires: 12/22/2025Start: 12-22-2024 End: 32-17-4977WCL W/REFLEX TO FT4TSH W/REFLEX TO FT4 Lab Routine Paroxysmal atrial fibrillation ([facility]/HCC) Expected: 12/22/2024 (Approximate), Expires: 12/22/2025[facility] HealthcareComment on above:Expected: 12/22/2024 (Approximate), Expires: 12/22/2025Start: 12-20-2024 End: 52-50-3451Ifsmona encounter /26/2025 9:00 AM EST Office Visit [facility] [address] [facility] [address] [place] [address] Benji Rosa MD [address] [facility] [address] [place] [address] NOMS CI FMStart: 64-86-1160Dxyzg screening for protein Diabetes: Urine Protein ScreeningNONM HealthcareStart: 70-36-5462Pnxiinrimn A1c measurementDiabetes: Hemoglobin W3HSBBY HealthcareStart: 08-23-2024 End: 12-48-2256Pzyyymd encounter procedureNOMS CI FMComment on above:Arrived Start: 18-28-3074Plkpdybvoh A1c measurementDiabetes: Hemoglobin P6QOWAT HealthcareStart: 01-72-3301Wqytxrtnr vaccinationInfluenza Vaccine (#1)[facility] HealthcareStart: 95-56-0533Xzwbkjvofo A1c measurementDiabetes: Hemoglobin A1C [facility] CenterStart: 12-09-2023 End: 42-31-5958Vfdovhzastiyh metabolic 2000 panel - Serum or PlasmaComprehensive metabolic panel Lab Routine Type 2 diabetes mellitus with other circulatory complications ([facility]/HCC) Stage 3a chronic kidney disease (HCC) (CMS/HCC) Expected: 12/09/2023 (Approximate), Expires: 12/09/2024NONM HealthcareComment on above:Expected: 12/09/2023 (Approximate), Expires: 12/09/2024Start: 12-09-2023 End: 78-26-4215Ecpjq 1996 panel - Serum or PlasmaLipid panel Lab Routine Type 2 diabetes mellitus with other circulatory complications (CMS/HCC) History of coronary artery bypass surgery Expected: 12/09/2023 (Approximate), Expires: 12/09/2024[facility] HealthcareComment on above:Expected: 12/09/2023 (Approximate), Expires: 12/09/2024Start: 12-09-2023 End: [id number] W/REFLEX TO FT4TSH W/REFLEX TO FT4 Lab Routine Class 3 severe obesity due to excess calories with serious comorbidity and body mass index (BMI) of 40.0 to 44.9 in adult ([facility]) Expected: 12/09/2023 (Approximate), Expires: 12/09/2024[facility] HealthcareComment on above:Expected: 12/09/2023 (Approximate), Expires: 12/09/2024Start: 12-09-2023 End: [id number] encounter procedureNOMS CI FMComment on above:Arrived Start: [id number] vaccinationInfluenza Vaccine (#1)[facility] Start: 08-03-4358Xjgtn screening for proteinDiabetes: Urine Protein Screening [facility] HealthcareStart: 15-42-8904Clngmecohn A1c measurementDiabetes: Hemoglobin Z9NNHCOBothwell Regional Health CenterStart: 72-33-8862Rbibfzswlrmy Vaccine: 65+ Years (1 of 2 - PCV)Pneumococcal Vaccine: 65+ Years (1 of 2 - PCV)[facility] HealthcareStart: 28-48-8058Rnjexdplikvp Vaccine: 65+ Years (1 - PCV)Pneumococcal Vaccine: 65+ Years (1 - PCV)[facility] HealthcareStart: 64-19-6078Meqfwyrceedg Vaccine: 65+ Years (1 of 2 - PCV)Pneumococcal Vaccine: 65+ Years (1 of 2 - PCV)[facility] Healthcare Start: 1957Medicare Annual Wellness (AWV)Medicare Annual Wellness (AWV) [facility] HealthcareStart: 65-13-5063Lvnonmfsl for malignant neoplasm of colonBLUE MOUNTAIN HOSPITAL, [facility]. HealthcareStart: 53-28-2951Jauywvopb for malignant neoplasm of lungLung Cancer Screening Shared Decision MakingNONM HealthcareCBC W Auto Differential panel - BloodCBC and differential Lab Routine Type 2 diabetes mellitus with other circulatory complications (CMS/HCC) Stage 3a chronic kidney disease (HCC) (CMS/HCC) Ordered: 12/09/2023[facility] HealthcareComment on above:Ordered: 12/09/2023 CBC W Auto Differential panel - BloodCBC and differential Lab Routine Paroxysmal atrial fibrillation (CMS/HCC) Ordered: 12/22/2024[facility] Work Phone: Comment on above:Ordered: 12/22/2024 Microalbumin/Creatinine panel in random UrineMicroalbumin / creatinine urine ratio Lab Routine Type 2 diabetes mellitus with other circulatory complications (CMS/HCC) Ordered: 12/09/2023[facility] Work Phone: Comment on above:Ordered: 12/09/2023 Microalbumin/Creatinine panel in random UrineMicroalbumin / creatinine urine ratio Lab Routine Type 2 diabetes mellitus with other circulatory complications (CMS/HCC) Ordered: 12/22/2024[facility] HealthcareComment on above:Ordered: 12/22/2024 Prostate specific Ag [Mass/volume] in Serum or PlasmaPSA Lab Routine Prostate cancer screening Ordered: 12/09/2023[facility] HealthcareComment on above:Ordered: 12/09/2023rostate specific Ag [Mass/volume] in Serum or PlasmaPSA Lab Routine Prostate cancer screening Ordered: 02/28/2025[facility] HealthcareComment on above: Ordered: 12/22/2024 Immunizations Immunization DateImmunizationNotesCare AukjylydBlysnjwp00-49-7628vvnavbsys, high dose seasonal, preservative-Vanessa Rosa MD Work Phone: [facility] CenterRafgehmmvz56-06-7634Vtkzmyrau, High-dose Seasonal, Quadrivalent, Preservative Vanessa Rosa MD Work Phone: [facility] CenterPzislhcgaf50-71-0151tugpvcyfk virus vaccine, unspecified formulationBenji Rosa MD Work Phone: [facility] CenterOowrsmsnxx20-58-1634fuvmfcovw virus vaccine, unspecified formulationMohambenjie Simmons [phone]-XtxidGlenbeigh Hospital10-28-2022 influenza virus vaccine, unspecified formulationMaher SALAM [phone]-BxvnnGlenbeigh Hospital10-28-2022 Influenza, injectable, Madin Moriah Canine Kidney, preservative free, quadrivalentBenji Rosa MD Work Phone: [facility] CenterXfhcdzdkfq65-82-6089TZXY-TbH-2 (COVID-19) mRNAMUL.ORD!x44884Yjadt SALAM 328-3862Xsqegz-LiwxhGlenbeigh Hospital12-30-2021 SARS-CoV-2 (COVID-19) mRNA BNT-162b2 vaxMaher SALAM [phone]-CyugnGlenbeigh Hospital10-18-2021 influenza virus vaccine, unspecified formulationMaher SALAM 130-3582Wjpodf-RrankGlenbeigh Hospital10-18-2021 influenza, injectable, quadrivalent, preservative Vanessa Rosa MD Work Phone: [facility] CenterNlzaniulob86-12-2858LBOD-HlK-7 (COVID-19) Ad26 vaccine, recombinantMaher SALAM [phone]-WzknyGlenbeigh Hospital01-06-2021 influenza virus vaccine, unspecified formulationMaher SALAM [phone]-EksjhGlenbeigh Hospital01-06-2021 influenza, injectable, quadrivalent, contains preservativeBenji Rosa MD Work Phone: [facility] CenterTbpcwzlpwb00-60-4392Kkyfiluoq, injectable, Madin Chadron Canine Kidney, quadrivalent with preservativeBenji Rosa MD Work Phone: [facility] CenterJogbhxlvgr91-85-6832golyetkkr virus vaccine, unspecified formulationMaher SALAM [phone]-WjufjGlenbeigh Hospital11-01-2018 influenza virus vaccine, unspecified formulationMaher SALAM [phone]-YkljzGlenbeigh Hospital11-01-2018 seasonal influenza, intradermal, preservative Vanessa Rosa MD Work Phone: [facility] CenterNebkcwphhw91-12-2274kvbrcklyd virus vaccine, unspecified formulationMaher SALAM [phone]-FxwaeGlenbeigh Hospital10-12-2017 seasonal influenza, intradermal, preservative Vanessa Rosa MD Work Phone: [facility] CenterIyeyfqaqec07-86-8790cgyfunwox virus vaccine, unspecified formulationMaher SALAM [phone]-JolrdGlenbeigh Hospital2016 influenza, injectable, quadrivalent, preservative Vanessa Rosa MD Work Phone: [facility] CenterPaadqvtifp93-35-2567fhwbenwfg, injectable, quadrivalent, preservative Vanessa Rosa MD Work Phone: [facility] Payers DatePayer CategoryPayerPolicy [id number] [id number] [id number]ua57-59-2112 [id number] [id number] [id number] 2.16.840.1.691070.3.57[id number] 2.16.840.1.919921.3.57[id number] 2.16.840.1.304878.3.57[id number] 2.16.840.1.394861.3.57[id number] 2.16.840.1.116548.3.57[id number] 2.16.840.1.307459.3.57[id number] 2.16.840.1.752142.3.57[id number] 2.16.840.1.493865.3.57[id number] 2.16.840.1.209744.3.57[id number] 2.16.840.1.437748.3.57[id number] 2.16.840.1.603730.3.57[id number] 2.16.840.1.473194.3.57[id number] 2.16.840.1.680113.3.57[id number] 2.16.840.1.912807.3.57[id number] 2..0.1.616678.3.57[id number] 2..840.1.079582.3.57[id number] 2.0.1.316987.3.57[id number] 2..840.1.156920.3.579.2.1259 Social History DateTypeDetailFacilityStart: 06-12-2020 End: 85-55-9002Ayzszem smoking statusEx-smoker (finding)[facility]ertart: 12-07-2023 End: 73-24-8945Bwa Assigned At [facility] Hospitaltart: 94-55-4389Vxydpuz smoking statusNeverC[facility] HealthStart: 10-25-1965 End: 38-21-5826Beuuuxt of tobacco useCurrent smokerNOMS HealthcareStart: 10-25-1965 End: 61-13-5304Nnduqec of tobacco useCigarette SmokerNOMS HealthcareStart: 12-07-2023 End: 22-22-3142Igfrsdq of Social functionNOMS HealthcareStart: 60-03-1062Bsf [facility] At [facility] HealthcareStart: 12-09-2023 End: 60-18-7091Zpvmbwm use and exposureSmokeless tobacco non-userNOMS Healthcare Start: 07-34-2577Hgirki identityIdentifies as male gender (finding)[facility] HealthcareHow often do you need to have someone help you when you read instructions, pamphlets, or other written material from your doctor or pharmacy [SILS]RarelyNOMS HealthcareWithin the last year, have you been afraid of your partner or ex-partner?NoNOMS HealthcareDo you belong to any clubs or organizations such as anabaptism groups, unions, fraternal or athletic groups, or school groups?YesNOMS HealthcareAre you now , , , , never or living with a partner?MarriedNOMS HealthcareHow often to you have a drink containing alcohol?Monthly or lessNOMS HealthcareHow many standard drinks containing alcohol do you have on a typical day?1 or 2N[facility]S HealthcareHow often do you have 6 or more drinks on 1 occasion?NeverNOMS HealthcareHow hard is it for you to pay for the very basics like food, housing, medical care, and heatingNot very hardNOMS Healthcare(I/We) worried whether (my/our) food would run out before (I/we) got money to buy more.Never trueNONM Healthcare Medical Equipment Procedure CodeEquipment CodeEquipment Original TextEquipment IdentifierDates Unknown Unknown 12/07/22 Non Biological UnknownFDAStart: 97-38-1398MWCBlufc: 12-64-1209Rliyztl Unknown 12/07/22 Non Biological UnknownFDAStart: 49-48-6613KZX Start: 15-10-6910Xayjnfn Unknown 12/07/22 Non Biological UnknownFDAStart: 09-63-1136UHDHcpic: 96-73-9575Vsotmty Unknown 12/07/22 Non Biological UnknownFDA Start: 40-49-9375OYUKrnuq: 31-01-3772Ovdpjfo Unknown 12/07/22 Non Biological UnknownFDAStart: 33-75-4703HKCGqbke: 12-07-2022 Functional Status NqadHzhghcwifdCtuylfZdfbtlzg01-24-5608Lxjszes Health Questionnaire 2 item (PHQ- 2) [Reported][facility] CenterSfouuyoegp36-30-7708Ewxmvzl Health Questionnaire 2 item (PHQ- 2) [Reported][facility] CenterDpkdjhvwwj77-34-7075Wkbeiyh Health Questionnaire 2 item (PHQ- 2) [Reported][facility] CenterCvnslhxvup96-74-0237Abowjjcamh StatusN/[facility] Eaoqbs48-75-9463Hmbblrqpox StatusNoC[facility] Clinic [facility] Ljhmiq66-60-2661Zpzalhsobn StatusN/[facility] Skyjgn06-27-5936Elqbtgtjfu StatusN/[facility] 30-29-9129Ybnsfauinc StatusN/[facility] Health Clinical Notes 10-28-2022 to 10-13-2025 Note Date & IkomUcxsZnxvzntu94-85-0519 History of Present illness Narrative* Benji Rosa MD - 08/06/2025 9:30 AM EDT Subjective : Chief Complaint: Celestino Patton is an 69 y.o. male here [...] Do you have a medical power of tax attorney?: Yes Who is your medical power of tax attorney?: zackary Objective : BP 124/68 Pulse 56 Ht 5' 6.5 Wt 266 lb SpO2 94% BMI 42.29 kg/m No results found. Physical Exam Constitutional: General: [...] - Flu vaccine, high dose seasonal, PF (GTW799) (Fluzone High Dose) Follow up in about [...] dx Flu vaccine, high dose seasonal, PF ([id number]) (Fluzone High Dose) Hepatitis C antibody Standing Status: Future Number of Occurrences: 1 Expected Date: 08/06/2025 Expiration Date: 08/06/2026 Print requisition?: No POCT Glycated hemoglobin, total Electronically signed by Benji Rosa MD on August 06, 2025 documented in this encounterBothwell Regional Health CenterRzexfvoawe86-86-2637 Telephone encounter Note* Telephone Encounter - IKERA Hilliard - 06/19/2025 2:32 PM EDT OARRS reviewed, Rx sent into patient's pharmacy. [facility] CenterTfqnqmupaf31-42-4713 Miscellaneous Notes* Telephone Encounter - KIERA Hilliard - 06/19/2025 2:32 PM EDT OARRS reviewed, Rx sent into patient's pharmacy. documented in this encounterBothwell Regional Health CenterFttxcwsmtw32-15-0165 History of Present illness Narrative* Benji Rosa MD - 05/07/2025 9:00 AM EDT Images from the original note were not included. Subjective Patient ID: Jason Patton is a 69 y.o. male who presents for Diabetes and Sinusitis. Hypertension Patient is here for follow-up of [...] and microalbuminuria. Home sugars: BGs range between 120 and 170 Pt stopped janumet since last visit as directed Pt finished abx since last visit states his is 90% improved Diabetes Pertinent negatives for diabetes include no chest pain and no fatigue. Sinusitis Pertinent negatives include no shortness of breath. Hypertension Pertinent negatives include no chest pain, palpitations or shortness of breath. Hip Pain Over the past 2 weeks, how often have you been bothered by any of the following problems? Little interest or pleasure in doing things: Not at all Feeling down, depressed, or hopeless: Not at all Patient Health Questionnaire-2 Score: 0 Current Outpatient Medications on File Prior to [...] by mouth at bedtime 90 tablet 0 [DISCONTINUED] levoFLOXacin (Levaquin) 500 MG tablet Take 1 tablet (500 mg) by mouth Daily for 7 days 7 tablet 0 No current facility-administered medications on file prior to visit. I have reviewed and reconciled the history and medication list with the patient today. Allergies Allergen Reactions Meloxicam Unknown and Rash Other Reaction(s): rectal bleeding Blood in stool Penicillins Rash and Unknown Other Reaction(s): Drug rash Social History Tobacco Use Smoking status: Former Current packs/day: 0.00 Types: Cigarettes Quit date: 2015 Years since quittin.5 Smokeless tobacco: Never Family History Problem Relation Name Age of Onset Hypertension Mother Heart disease Mother Mental illness Mother Kidney disease Mother Seizures Mother COPD Father Hypertension Father Diabetes Father Past Medical History: Diagnosis Date Allergic Arthritis CAD (coronary artery disease) Diabetes mellitus (HCC) GERD (gastroesophageal reflux disease) Glaucoma Past Surgical History: Procedure Laterality Date CARDIAC CATHETERIZATION 2018 COLONOSCOPY 2005 COLONOSCOPY W/ POLYPECTOMY 2013 CORONARY ARTERY BYPASS GRAFT 2019 x2 CYSTOSCOPY 2020 EGD 2012 with biopsy positive hpylori Visit Vitals BP 130/72 Pulse 62 Ht 5' 6.5 Wt 259 lb SpO2 96% BMI 41.18 kg/m Smoking Status Former BSA 2.34 m Review of Systems Constitutional: Negative for fatigue. Respiratory: Negative for shortness of breath. Cardiovascular: Negative for chest pain and palpitations. Objective Physical Exam Constitutional: General: He is [...] normal. Judgment: Judgment normal. Office Visit on 05/07/2025 Component Date Value Ref Range Status Hemoglobin A1C 05/07/2025 5.9 Final Assessment/Plan Diagnoses and all orders for this visit: Type 2 diabetes mellitus with other circulatory complications (HCC) - POCT Glycated hemoglobin, total - FSBS log shows good control, most recent A1C is at or near goal. Continue current treatment plan as previously outlined without changes. Follow up in about 4 months (around 09/07/2025) for DM- A1C. documented in this encounterBothwell Regional Health CenterIifhbcjsmz46-55-0168 History of Present illness Narrative* Benji Rosa MD - 04/20/2025 8:30 AM EDT Images from the original note were not included. HPI Results Additional comments: Labs 11/2024 Last edited by Rocio Sims LPN on 04/20/2025 8:26 AM. Subjective Patient ID: Jason Patton is a 69 y.o. male who presents for Diabetes, Hypertension, and Results (Labs 11/2024). Complains of sinus symptoms Hypertension Patient is here for follow-up of [...] and microalbuminuria. Home sugars: BGs range between 120 and 170 Diabetes Pertinent negatives for diabetes include no chest pain and no fatigue. Hypertension Pertinent negatives include no chest pain, palpitations or shortness of breath. Sinusitis Pertinent negatives include no shortness of breath. Hip Pain Over the past 2 weeks, how often have you been bothered by any of the following problems? Little interest or pleasure in doing things: Not at all Feeling down, depressed, or hopeless: Not at all Patient Health Questionnaire-2 Score: 0 Current Outpatient Medications on File Prior to [...] by mouth at bedtime 90 tablet 0 [DISCONTINUED] Janumet 50-500 MG tablet TAKE 1 TABLET IN THE MORNING AND EVENING WITH MEALS 180 tablet 2 No current facility-administered medications on file prior to visit. I have reviewed and reconciled the history and medication list with the patient today. Allergies Allergen Reactions Meloxicam Unknown and Rash Other Reaction(s): rectal bleeding Blood in stool Penicillins Rash and Unknown Other Reaction(s): Drug rash Social History Tobacco Use Smoking status: Former Current packs/day: 0.00 Types: Cigarettes Quit date: 2015 Years since quittin.4 Smokeless tobacco: Never Family History Problem Relation Name Age of Onset Hypertension Mother Heart disease Mother Mental illness Mother Kidney disease Mother Seizures Mother COPD Father Hypertension Father Diabetes Father Past Medical History: Diagnosis Date Allergic Arthritis CAD (coronary artery disease) Diabetes mellitus (HCC) GERD (gastroesophageal reflux disease) Glaucoma Past Surgical History: Procedure Laterality Date CARDIAC CATHETERIZATION 2018 COLONOSCOPY 2004 COLONOSCOPY W/ POLYPECTOMY 2013 CORONARY ARTERY BYPASS GRAFT 2019 x2 CYSTOSCOPY 2019 EGD 2012 with biopsy positive hpylori Visit Vitals BP 128/72 Pulse 57 Ht 5' 6.5 Wt 253 lb SpO2 96% BMI 40.22 kg/m Smoking Status Former BSA 2.32 m Review of Systems Constitutional: Negative for fatigue. Respiratory: Negative for shortness of breath. Cardiovascular: Negative for chest pain and palpitations. Objective Physical Exam Constitutional: General: He is not in acute distress. Appearance: He is normal weight. He is not ill-appearing. HENT: Head: Normocephalic. Nose: Congestion present. Mouth/Throat: Pharynx: Oropharyngeal exudate and posterior oropharyngeal erythema present. Cardiovascular: Rate and Rhythm: Normal rate and [...] normal. Judgment: Judgment normal. Office Visit on 04/20/2025 Component Date Value Ref Range Status Hemoglobin A1C 04/20/2025 5.8 Final Office Visit on 12/22/2024 Component Date Value Ref Range Status Hemoglobin A1C 12/22/2024 6.1 Final WHITE BLOOD CELL COUNT 12/22/2024 8.9 3.8 - 10.8 Thousand/uL Final RED BLOOD CELL COUNT 12/22/2024 4.86 4.20 - 5.80 Million/uL Final HEMOGLOBIN 12/22/2024 13.5 13.2 - 17.1 g/dL Final HEMATOCRIT 12/22/2024 43.0 38.5 - 50.0 % Final MCV 12/22/2024 88.5 80.0 - 100.0 fL Final MCH 12/22/2024 27.8 27.0 - 33.0 pg Final MCHC 12/22/2024 31.4 (L) 32.0 - 36.0 g/dL Final Comment: For adults, a slight decrease in the calculated MCHC value (in the range of 30 to 32 g/dL) is most likely not clinically significant; however, it should be interpreted with caution in correlation with other red cell parameters and the patient's clinical condition. RDW 12/22/2024 13.1 11.0 - 15.0 % Final PLATELET COUNT 12/22/2024 293 140 - 400 Thousand/uL Final MPV 12/22/2024 11.1 7.5 - 12.5 fL Final ABSOLUTE NEUTROPHILS 12/22/2024 5,660 1,500 - 7,800 cells/uL Final ABSOLUTE LYMPHOCYTES 12/22/2024 2,439 850 - 3,900 cells/uL Final ABSOLUTE MONOCYTES 12/22/2024 472 200 - 950 cells/uL Final ABSOLUTE EOSINOPHILS 12/22/2024 258 15 - 500 cells/uL Final ABSOLUTE BASOPHILS 12/22/2024 71 0 - 200 cells/uL Final NEUTROPHILS 12/22/2024 63.6 % Final LYMPHOCYTES 12/22/2024 27.4 % Final MONOCYTES 12/22/2024 5.3 % Final EOSINOPHILS 12/22/2024 2.9 % Final BASOPHILS 12/22/2024 0.8 % Final CREATININE, RANDOM URINE 12/22/2024 41 20 - 320 mg/dL Final ALBUMIN, URINE 12/22/2024 2.2 See Note: mg/dL Final Comment: Reference Range: Reference Range Not established ALBUMIN/CREATININE RATIO, RANDOM U* 12/22/2024 54 (H) <30 mg/g creat Final Comment: The ADA defines abnormalities in albumin excretion as follows: Albuminuria Category Result (mg/g creatinine) Normal to Mildly increased <30 Moderately increased 30-299 Severely increased > OR = 300 The ADA recommends that at least two of three specimens collected within a 3-6 month period be abnormal before considering a patient to be within a diagnostic category. PSA, TOTAL 12/22/2024 0.21 < OR = 4.00 ng/mL Final Comment: The total PSA value from this assay system is standardized against the WHO standard. The test result will be approximately 20% lower when compared to the equimolar-standardized total PSA (Corey Negin). Comparison of serial PSA results should be interpreted with this fact in mind. This test was performed using the Siemens chemiluminescent method. Values obtained from different assay methods cannot be used interchangeably. PSA levels, regardless of value, should not be interpreted as absolute evidence of the presence or absence of disease. Glucose 12/22/2024 114 65 - 139 mg/dL Final Comment: Non-fasting reference interval For someone without known diabetes, a glucose value between 100 and 125 mg/dL is consistent with prediabetes and should be confirmed with a follow-up test. BUN 12/22/2024 15 7 - 25 mg/dL Final Creatinine 12/22/2024 1.34 0.70 - 1.35 mg/dL Final EGFR 12/22/2024 58 (L) > OR = 60 mL/min/1.73m2 Final BUN/CREATININE RATIO 12/22/2024 SEE NOTE: 6 - 22 (calc) Final Comment: Not Reported: BUN and Creatinine are within reference range. Sodium 12/22/2024 141 135 - 146 mmol/L Final Potassium, Bld 12/22/2024 4.3 3.5 - 5.3 mmol/L Final Chloride 12/22/2024 103 98 - 110 mmol/L Final Carbon Dioxide 12/22/2024 28 20 - 32 mmol/L Final Calcium 12/22/2024 9.5 8.6 - 10.3 mg/dL Final PROTEIN, TOTAL 12/22/2024 7.5 6.1 - 8.1 g/dL Final ALBUMIN 12/22/2024 4.3 3.6 - 5.1 g/dL Final GLOBULIN 12/22/2024 3.2 1.9 - 3.7 g/dL (calc) Final ALBUMIN/GLOBULIN RATIO 12/22/2024 1.3 1.0 - 2.5 (calc) Final BILIRUBIN, TOTAL 12/22/2024 0.5 0.2 - 1.2 mg/dL Final ALKALINE PHOSPHATASE 12/22/2024 41 35 - 144 U/L Final AST 12/22/2024 16 10 - 35 U/L Final ALT 12/22/2024 18 9 - 46 U/L Final CHOLESTEROL, TOTAL 12/22/2024 115 <200 mg/dL Final HDL CHOLESTEROL 12/22/2024 43 > OR = 40 mg/dL Final TRIGLYCERIDES 12/22/2024 122 <150 mg/dL Final LDL CHOLESTEROL 12/22/2024 52 mg/dL (calc) Final Comment: Reference range: <100 Desirable range <100 mg/dL for primary prevention; <70 mg/dL for patients with CHD or diabetic patients with > or = 2 CHD risk factors. LDL-C is now calculated using the [employer] calculation, which is a validated novel method providing better accuracy than the Friedewald equation in the estimation of LDL-C. Dallas SS et al. ELA. 2013;310(19): 3542-3358 (http://[employer].Beaming/faq/BQD258) CHOL/HDLC RATIO 12/22/2024 2.7 <5.0 (calc) Final NON HDL CHOLESTEROL 12/22/2024 72 <130 mg/dL (calc) Final Comment: For patients with diabetes plus 1 major ASCVD risk factor, treating to a non-HDL-C goal of <100 mg/dL (LDL-C of <70 mg/dL) is considered a therapeutic option. 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 To ENT if this fails. Follow up in about 2 weeks (around 05/04/2025) for F/U med changes. documented in this encounterBothwell Regional Health CenterRbpszkzkkp89-64-3547 Telephone encounter Note* Telephone Encounter - KIERA Hilliard - 03/20/2025 1:01 PM EDT OARRS reviewed, Rx sent into patient's pharmacy. [facility] CenterSulfytgbpb25-82-5303 Miscellaneous Notes* Telephone Encounter - KIERA Hilliard - 03/20/2025 1:01 PM EDT OARRS reviewed, Rx sent into patient's pharmacy. documented in this encounterBothwell Regional Health CenterEkllnzhetp44-98-6344 Telephone encounter Note* Telephone Encounter - KIERA Hilliard - 12/27/2024 11:06 AM EST OARRS reviewed, patient just had Rx filled on 12/25/2024 for 90 day supply. Too soon to refill. [facility] CenterZssqmvlolh90-10-1527 Miscellaneous Notes* Telephone Encounter - KIERA Hilliard - 12/27/2024 11:06 AM EST OARRS reviewed, patient just had Rx filled on 12/25/2024 for 90 day supply. Too soon to refill. documented in this encounterBothwell Regional Health CenterSvasvvawqe55-56-8929 [facility]ech[facility] Chief Complaint: Patient here for 6 mo follow up CAD, valve disorder, and afib. Lisinopril and Farxiga were added at last visit in May 2024. Wore event monitor at that time. He's due for repeat annual echo in May 2025. Patient had routine labs with lipid panel last week. He isn't sure what medications he's taking, and his was unable to accompany him to his apt today. I asked him to have her call me today. He denies chest pain, SOB, lightheadedness/syncope, and bleeding on Eliquis. HPI: Celestino Patton is a 68 y.o. [...] ROS: Review of Systems Cardiovascular: Positive for leg swelling and palpitations (not often). All other systems reviewed [...] mouth in the morning., Disp: , Rfl: dapagliflozin propanediol (Farxiga) 10 mg, Take 1 tablet (10 mg) by mouth in the morning., Disp: 90 tablet, Rfl: 3 dilTIAZem ER (Tiazac) 240 mg 24 hr capsule, TAKE 1 CAPSULE EVERY MORNING, Disp: 90 capsule, Rfl: 3 Eliquis 5 mg tablet, TAKE 1 TABLET IN THE MORNING AND AT BEDTIME, Disp: 180 tablet, Rfl: 3 famotidine (Pepcid) 20 mg tablet, Take 1 tablet by mouth in the morning., Disp: , Rfl: furosemide (Lasix) 20 mg tablet, TAKE 1 TABLET EVERY MORNING, Disp: 90 tablet, Rfl: 3 lisinopril 5 mg tablet, Take 1 tablet (5 mg) by mouth in the morning., Disp: 90 tablet, Rfl: 3 potassium chloride CR (Klor-Con M10) 10 mEq ER tablet, Take 10 mEq by mouth in the morning. Do not crush or chew., Disp: , Rfl: rosuvastatin (Crestor) 10 mg tablet, Take 1 tablet (10 mg) by mouth in the evening. (Patient not taking: Reported on 05/29/2024), Disp: 90 tablet, Rfl: 1 rosuvastatin (Crestor) 40 mg tablet, Take 1 tablet (40 mg) by mouth in the morning., Disp: 90 tablet, Rfl: 3 simvastatin (Zocor) 40 mg tablet, Take 40 [...] at bedtime for sleep., Disp: , Rfl: Last Recorded Vitals BP 108/62 (BP Location: Left arm, Patient Position: Sitting) Pulse 62 Ht 1.676 m (5' 6 ) Wt [...] PSYCH: appropriate mood, affect, and judgement. Transesophageal Echocardiogram-[facility] Name: CELESTINO PATTON Study Date: 03/24/2023 10:19 AM B/P: 129 mmHg/73 mmHg HR: 79 bpm Date of : 1955 Location: [facility] Height: 66 in. Age: 67 year(s) Patient Room : [facility] VASCULAR POOL Weight: 230 lb. Gender: Male Patient Status: OutPt BSA: 2.12 m2 Indication: Mitral regurgitation Examination: ROSELYN/Limited Doppler/CFI, 3D images Image Quality: Good Patient Consent: Informed, written consent was obtained for the procedure s p @ c 3 Exam Location: A ROSELYN was performed in the Smt Operator without complications s p @ c 3 Anesthesia Pharyngeal anesthesia with viscous Lidocaine Conclusions Left Ventricle: The left ventricle appears normal in size. The EF is 60 % visually. Right Ventricle: The (more content not included)...[facility]02-28-2025 History of Present illness Narrative* Benji Rosa MD - 12/22/2024 11:00 AM EST Images from the original note were not included. Subjective Patient ID: Jason Patton is a 69 y.o. male who presents for Diabetes, Hypertension, and Sinusitis. Hypertension Patient is here for follow-up of [...] and microalbuminuria. Home sugars: BGs range between 120 and 170 Sinus symptoms started 1 month ago post nasal drainage,cough Diabetes Pertinent negatives for diabetes include no chest pain and no fatigue. Hypertension Pertinent negatives include no chest pain, palpitations or shortness of breath. Sinusitis Pertinent negatives include no shortness of breath. Hip Pain Current Outpatient Medications on File Prior to Visit Medication Sig Dispense Refill dilTIAZem ER (Tiazac) 240 MG 24 hr capsule Take 240 mg by mouth in the morning. famotidine (Pepcid) 20 MG tablet Take 1 tablet by mouth in the morning. Farxiga 10 MG Take 10 mg by mouth in the morning. furosemide (Lasix) 20 MG tablet Take 20 mg by mouth in the morning. Janumet 50-500 MG tablet TAKE 1 TABLET IN THE MORNING AND EVENING WITH MEALS 180 tablet 2 latanoprost (Xalatan) 0.005 % ophthalmic solution Administer [...] mg) by mouth at bedtime 90 tablet 1 apixaban (Eliquis) 5 MG tablet Take 1 tablet (5 mg) by mouth in the morning and 1 tablet (5 mg) before bedtime. 60 tablet 2 [DISCONTINUED] potassium chloride CR (Klor-Con M10) 10 MEQ ER tablet Take 10 mEq by mouth in the morning. [DISCONTINUED] simvastatin (Zocor) 40 MG tablet TAKE 1 TABLET AT BEDTIME 90 tablet 3 No current facility-administered medications on file prior to visit. I have reviewed and reconciled the history and medication list with the patient today. Allergies Allergen Reactions Meloxicam Unknown and Rash Other Reaction(s): rectal bleeding Blood in stool Penicillins Rash and Unknown Other Reaction(s): Drug rash Social History Tobacco Use Smoking status: Former Current packs/day: 0.00 Types: Cigarettes Quit date: 2015 Years since [...] Surgical History: Procedure Laterality Date CARDIAC CATHETERIZATION 2019 COLONOSCOPY 2005 COLONOSCOPY W/ POLYPECTOMY 2013 CORONARY ARTERY BYPASS GRAFT 2019 x2 CYSTOSCOPY 2020 EGD 2012 with biopsy positive hpylori Visit Vitals BP 130/74 Pulse 61 Ht 5' 6.5 Wt 262 lb SpO2 97% BMI 41.65 kg/m Smoking Status Former BSA 2.36 m Review of Systems Constitutional: Negative for fatigue. Respiratory: Negative for shortness of breath. Cardiovascular: Negative for chest pain and palpitations. Objective Physical Exam Constitutional: General: He is not in acute distress. Appearance: He is normal weight. He is not ill-appearing. HENT: Head: Normocephalic. Nose: Congestion present. Mouth/Throat: Pharynx: Oropharyngeal exudate and posterior oropharyngeal erythema present. Cardiovascular: Rate and Rhythm: Normal rate and [...] normal. Judgment: Judgment normal. Office Visit on 12/22/2024 Component Date Value Ref Range Status Hemoglobin A1C 12/22/2024 6.1 Final Assessment/Plan Diagnoses and all orders for this visit: Type 2 diabetes mellitus with other circulatory complications (CMS/HCC) - POCT Glycated hemoglobin, total - Comprehensive metabolic panel; Future - Lipid panel; Future - Microalbumin / creatinine urine ratio - FSBS log shows good control, most recent A1C is at or near goal. Continue current treatment plan as previously outlined without changes. 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 Follow up in about 4 months (around 04/21/2025) for Routine F/U. 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 [place] [id number] Miscellaneous Notes* Telephone Encounter - KIERA Hilliard - 09/26/2024 1:44 PM EST OARRS reviewed, Rx sent into patient's pharmacy. documented in this [place] [id number] Telephone encounter Note* Telephone Encounter - KIERA Hliliard - 09/05/2024 9:03 AM EST 90 day supply filled on 07/06. Ambien being requested too soon. [facility] CenterMvnozhfojz31-03-0730 Miscellaneous Notes* Telephone Encounter - KIERA Hilliard - 09/05/2024 9:03 AM EST 90 day supply filled on 07/06. Ambien being requested too soon. documented in this [facility]11-07-2024 Telephone encounter Note* Telephone Encounter - KIERA Hilliard - 08/31/2024 4:18 PM EST Zolpidem filled 07/06 for 90 day supply. Not refilled at this time. They are requesting it more thana month early. [place] [id number] Miscellaneous Notes* Telephone Encounter - KIERA Hilliard - 08/31/2024 4:18 PM EST Zolpidem filled 07/06 for 90 day supply. Not refilled at this time. They are requesting it more thana month early. documented in this encounterBothwell [facility] [id number] Telephone encounter Note* Telephone Encounter - KIERA Hilliard - 08/29/2024 8:10 AM EST Zolpidem requested too soon, filled for 90 day supply in June. Potassium sent. [facility] [id number] Miscellaneous Notes* Telephone Encounter - KIERA Hilliard - 08/29/2024 8:10 AM EST Zolpidem requested too soon, filled for 90 day supply in June. Potassium sent. documented in this encounterBothwell [facility] Health CenterDpqfducuuo79-03-1377 History of Present illness Narrative* Benji Rosa MD - 08/23/2024 8:30 AM EDT Images from the original note were not included. HPI Medicare Annual Wellness Visit Subsequent Additional comments: Pt states he has had a productive cough x 2 weeks Look at small sore on leg/possible bug bite left lower leg Last edited by Rocio Sims LPN on 08/23/2024 8:36 AM. Subjective : Chief Complaint: Chasidy Patton is an 68 y.o. male here for an annual wellness [...] 20 mg by mouth in the morning. Janumet 50-500 MG tablet TAKE 1 TABLET IN THE MORNING AND EVENING WITH MEALS 180 tablet 2 latanoprost (Xalatan) 0.005 % ophthalmic solution Administer 1 drop into both eyes at bedtime potassium chloride CR (Klor-Con M10) 10 MEQ ER tablet Take 10 mEq by mouth in the morning. simvastatin (Zocor) 40 MG tablet TAKE 1 TABLET AT BEDTIME 90 tablet 3 traZODone (Desyrel) 50 MG tablet TAKE 1/2 TABLET AT BEDTIME 45 tablet 3 zolpidem (Ambien) 10 MG tablet TAKE 1 TABLET AT BEDTIME 90 tablet 1 azithromycin (Zithromax) 250 MG tablet Take 2 tablets (500 mg) by mouth Daily for 1 day, THEN 1 tablet (250 mg) Daily for 4 days. 6 tablet 0 No current facility-administered medications for this visit. Review of Systems List of current healthcare providers: Patient Care Team: Benji Rosa MD as PCP - General (Internal Medicine) Medicare Annual Visit Over the past 2 [...] taxes?: Yes Cognitive Screening Three Word Registration: Apple, Watch, Eleni Clock Drawing: Normal Clock - 2 Three Word Recall: All 3 words correct - 3 Total Score (0-5 Points): 5 Pain Assessment Pain Score: 4 Advance Care Planning Do you have a living will?: Yes Do you have a medical power of tax attorney?: Yes Who is your medical power of tax attorney?: -zackary Objective : BP 128/68 Pulse 61 Ht 5' 6.5 Wt 254 lb SpO2 95% BMI 40.38 kg/m No results found. Physical Exam Constitutional: General: He is not in acute distress. Appearance: He is normal weight. He is not ill-appearing. HENT: Head: Normocephalic. Nose: Congestion present. Mouth/Throat: Pharynx: Oropharyngeal exudate and posterior oropharyngeal erythema present. Cardiovascular: Rate and Rhythm: Normal rate and [...] normal. Judgment: Judgment normal. Office Visit on 08/23/2024 Component Date Value Ref Range Status Hemoglobin A1C 08/23/2024 6.5 Final Assessment/Plan : The following health maintenance schedule was reviewed with the patient and provided in printed form in the after visit summary: Health Maintenance Topic Date Due Pneumococcal Vaccine: 65+ Years (1 of 2 - PCV) Never done Diabetes: Hemoglobin A1C 11/23/2024 Diabetes: Urine Protein Screening 12/09/2024 Medicare Annual Wellness (AWV) 08/23/2025 Diabetes: Retinopathy Screening 01/02/2026 Colorectal Cancer Screening 12/07/2032 Influenza Vaccine Completed Advance Care Planning Assessment/Plan Diagnoses and all orders for this visit: Routine general medical examination at health care facility ACP (advance care planning) Flu vaccine need - Influenza, high-dose seasonal, quadrivalent, PF ([id number]) (Fluzone High Dose [place] 0.7mL dose) Type 2 diabetes mellitus with other circulatory complications (CMS/HCC) - POCT Glycated hemoglobin, total Acute sinusitis, recurrence not specified, unspecified location - azithromycin (Zithromax) 250 MG tablet; Take 2 tablets (500 mg) by mouth Daily for 1 day, THEN 1 tablet (250 mg) Daily for 4 days. Follow up in about 4 months (around 12/22/2024) for Routine F/U, DM- A1C, Perform Labwork. Orders Placed This Encounter Procedures Influenza, high-dose seasonal, quadrivalent, PF (UBV516) (Fluzone High Dose [place] 0.7mL dose) POCT Glycated hemoglobin, total Electronically signed by Benji Rosa MD on August 23, 2024 documented in this encounterBothwell [facility] Health [id number] History of Present illness Narrative* Benji Rosa MD - 12/09/2023 8:45 AM EST Subjective Patient ID: Jason Patton is a [...] Procedure Laterality Date CARDIAC CATHETERIZATION 2018 COLONOSCOPY 2005 COLONOSCOPY W/ POLYPECTOMY 2013 CORONARY ARTERY BYPASS GRAFT 2019 x2 CYSTOSCOPY 2020 EGD 2012 with biopsy positive hpylori Visit [...] 2 diabetes mellitus with other circulatory complications ([facility]/HCC) - POCT Glycated hemoglobin, total - Microalbumin / creatinine urine ratio - Comprehensive metabolic panel; Future - CBC and differential - Lipid panel; Future Stage 3a chronic kidney disease (HCC) ([facility]) - Comprehensive metabolic panel; Future - CBC and differential 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 documented in this encounterBothwell [facility] Health [id number] Hospital Discharge instructions Patient Education 01/19/2023 09:04:19 [...] label of any prepackaged food. Look for foodsthat contain 5 g of fiber or more per serving. Talk with a diet and lean manufacturing specialist (dietitian) if you have questions about [...] Bulgur wheat. Millet. Quinoa. Bran muffins. Popcorn. [place] wafer crackers. Meats and other proteins [place], kidney, and meadows beans. Soybeans. Split peas. [...] Cream cheese. Sour cream. Fats and oils [place]. Beverages Soft drinks. Other foods Cakes and [...] 10/11/2006 Document Revised: 08/15/2018 Document Reviewed: 08/15/2018 [employer] Patient Education 2020 [employer] 01/19/2023 09:04:18 Hemorrhoids Hemorrhoids Hemorrhoids are swollen [...] help the symptoms, procedures can be done toshrink or remove the hemorrhoids. What are the [...] Other exams or tests may also be done,such as: An exam that involves feeling the [...] do not help your symptoms. These procedures canhelp make the hemorrhoids smaller or remove them completely. Some of these procedures involve surgery, and others do not. Common procedures include: Rubber band ligation. Rubber bands are placed at the base of the hemorrhoids to cut off their bloodsupply. Sclerotherapy. Medicine is injected into the hemorrhoids [...] 3 times a day. General instructions Take pgqn-axo-svdpiwj and prescription medicines only as told by [...] 10/08/2001 Document Revised: 03/08/2020 Document Reviewed: 03/02/2019 [employer] Patient Education 2020 [employer]. 01/19/2023 09:04:17 Colon Polyps Colon Polyps Polyps [...] 07/07/2005 Document Revised: 01/26/2019 Document Reviewed: 01/26/2019 [employer] Patient Education 2020 [employer]. Follow Up Care 12/24/2022 14:44:23 With:Noemi Vargas CNP Address: When:1 year only if needed [facility] 02-13-2023 Hospital Discharge instructions Patient Education 12/07/2022 15:56:43 Colonoscopy, Care After Surgery Lauren (CUSTOM) Colonoscopy Care After Surgery Please read the instructions outlined below and refer to this sheet in the next few weeks. These discharge instructions provide you with general information on caring for yourself after you leave thespital. Your doctor may also give you specific [...] Heavy or fried foods are harder to digestand may make you feel nauseated (sick to [...] 07/07/2005 Document Revised: 01/26/2019 Document Reviewed: 01/26/2019 [employer] Patient Education 2020 [employer]. 12/07/2022 15:56:43 Hemorrhoids, Ahjl-jn-Rzlc Hemorrhoids Hemorrhoids are swollen veins that may [...] 3 4 times a day. You may dothis in a bathtub or using a portable sitz bath that fits over the toilet. If told, put ice on the painful area. It may be helpful to use ice between your warm baths. ?Put ice in a plastic bag. ?Place a towel between your skin and the bag. ?Leave the ice on for 20 minutes, 2 3 times a day. General instructions Take ifek-vus-xqmntmq and prescription medicines only as told by [...] 07/20/2009 Document Revised: 10/19/2019 Document Reviewed: 03/02/2019 [employer] Patient Education 2020 [employer]. Follow Up Care 10/28/2022 09:00:29 With:Mat AGUILAR Address: [address] [place] [address]. [address] [place] [address] Business (1) When: Unknown Comments:Call for any problems. Office will call for follow up appt [facility]02-13-2023 Evaluation + Plan noteExtracted from: Title:CSB post opAuthor:Shanice HOLDEN, Jevon RosenDate:12/07/22 Plan Transfer/Discharge: Transfer/Discharge Discharge when meets criteria ( To home ). Future Scheduled Tests Laboratory* CBC w/ Auto Diff 10/28/22 [facility]02-08-2023 NoteCARDIAC STRESS TEST Requesting Physician: Romina Sandoval M.D. Procedure Date:12/02/2022 PERFORMING PHYSICIAN: Ginger [...] perfusion scan imaging. 4. Clinical correlation recommended.[facility] [id number] Evaluation + Plan note Future Scheduled Tests Laboratory* CBC w/ Auto Diff 10/28/22 [facility] Evaluation + Plan note Future Appointments Appointment Date:12/07/2022 02:45:00 PM Scheduled Provider: Location:[facility] Appointment Type:Surgery FT Future Scheduled Tests Laboratory* CBC w/ Auto Diff 10/28/22 [facility] Evaluation + Plan note Future Appointments Appointment Date:02/10/2024 08:15:00 AM Scheduled Provider:Ginger Simmons MD Location:[facility] Appointment Type:[facility] Follow Up Future Scheduled Tests Laboratory* Pancreatic Elastase, Fecal 12/30/23 * Calprotectin, Fecal 12/30/23 * Calprotectin, Fecal 12/30/23 * Fecal WBC Lactoferrin 12/30/23 * O & P Exam, Routine 12/30/23 * Clostridium Difficile PCR 12/30/23 * Enteric Panel by PCR 12/30/23 [facility] Evaluation + Plan note Future Appointments Appointment Date:02/10/2024 08:15:00 AM Scheduled Provider:Ginger Simmons MD Location:[facility] Appointment Type:[facility] Follow Up Diagnostic Tests Pending * Celiac Disease Comprehensive 12/30/23 Future Scheduled Tests Laboratory* Pancreatic Elastase, Fecal 12/30/23 * Calprotectin, Fecal 12/30/23 * Calprotectin, Fecal 12/30/23 * Fecal WBC Lactoferrin 12/30/23 * O & P Exam, Routine 12/30/23 * Clostridium Difficile PCR 12/30/23 * Enteric Panel by PCR [facility] Future Appointments Appointment Date:02/10/2024 08:15:00 AM Scheduled Provider:Ginger Simmons MD Location:[facility] Appointment Type:[facility] Follow Up Diagnostic Tests Pending * Calprotectin, Fecal 01/18/24 * Enteric Panel by PCR 01/18/24 * O & P Exam, Routine 01/18/24 * Pancreatic Elastase, Fecal 01/18/24 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 (CMS/HCC) History of coronary artery bypass surgery Postsurgical aortocoronary bypass status Pure hypercholesterolemia ([facility]) Pure hypercholesterolemia Prostate cancer screening Special screening for malignant neoplasm of prostate Class 3 severe obesity due to excess calories with serious comorbidity and body mass index (BMI) of40.0 to 44.9 in adult (CMS/HCC) documented [facility] Diagnosis Routine general medical examination at health care facility- Primary Routine general medical examination at a health care facility ACP (advance care planning) Other specified counseling Flu vaccine need Type 2 diabetes mellitus with other circulatory complications (CMS/HCC) Acute sinusitis, recurrence not specified, unspecified location [facility] Diagnosis Persistent insomnia Microscopic hematuria [facility]* Diagnosis Persistent insomnia [facility] Diagnosis Persistent insomnia [facility]* Diagnosis Type 2 diabetes mellitus with other circulatory complications (HCC)- Primary 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 Stage 3a chronic kidney disease (CMS-HCC) Paroxysmal atrial fibrillation (HCC) Atrial fibrillation Chronic sinusitis, unspecified location [facility]* Diagnosis Type 2 diabetes mellitus with other circulatory complications (HCC) [facility] Diagnosis Persistent insomnia [facility]* Diagnosis Routine general medical examination at health [...] unspecified viral disease [facility] Narrative No data available for this section [facility] Hospital Discharge instructions No data available for this section [facility] Progress note No data available for this section [facility] Summary Purpose Family History No [...] section and content) DATE CREATED AUTHOR 03/13/2019 [facility] DATE CREATED AUTHOR AUTHOR'S ORGANIZ ATION 01/10/2022 [facility] [employer] [facility] DATE CREATED AUTHOR AUTHOR'S ORGANIZ ATION 04/03/2023 [facility] DATE CREATED AUTHOR AUTHOR'S ORGANIZ ATION 02/11/2024 [facility] DATE CREATED AUTHOR AUTHOR'S ORGANIZ ATION 12/25/2024 [facility] DATE CREATED AUTHOR AUTHOR'S ORGANIZ ATION 08/06/2025 [facility] DATE CREATED AUTHOR AUTHOR'S ORGANIZ ATION 08/07/2025 [facility] EPIC Patient Care team informatio n (unrecognized section and content) Team MemberRelationshipSpecialtyStart DateEnd Date Benji Rosa MD [address] [place] [address] PCP - GeneralInternal Medicine03/02/23am MemberRelationshipSpecialtyStart Date End Date Benji Rosa MD [address] [place] [address] PCP - GeneralInternal Medicine03/02/23am MemberRelationshipSpecialtyStart Date End Date Benji Rosa MD [address] [place] [address] PCP - GeneralInternal Medicine03/02/23am MemberRelationshipSpecialtyStart Date End Date Benji Rosa MD [address] [place] [address] PCP - GeneralInternal Medicine03/02/23am MemberRelationshipSpecialtyStart Date End Date Benji Rosa MD [address] [place] [address] PCP - GeneralInternal Medicine03/02/23am MemberRelationshipSpecialtyStart Date End Date Benji Rosa MD [address] [place] [address] PCP - GeneralInternal Medicine03/02/23am MemberRelationshipSpecialtyStart Date End Date Benji Rosa MD [address] [place] [address] PCP - GeneralInternal Medicine03/02/23am MemberRelationshipSpecialtyStart Date End Date Benji Rosa MD [address] [place] [address] PCP - GeneralInternal Medicine03/02/23Te MemberRelationshipSpecialtyStart Date End Date Benji Rosa MD [address] [place] [address] PCP - GeneralInternal Medicine03/02/23Team MemberRelationshipSpecialtyStart Date End Date Benji Rosa MD [address] [place] [address] PCP - GeneralInternal Medicine03/02/23Team MemberRelationshipSpecialtyStart Date End Date Benji Rosa MD [address] [place] [address] PCP - GeneralInternal Medicine03/02/23 Benji Rosa MD [address] [place] [address] PCP - [facility]12/01/24Team MemberRelationshipSpecialtyStart DateEnd Date Benji Rosa MD [address] [place] [address] PCP - GeneralInternal Medicine03/02/23 Benji Rosa MD [address] [place] [address] PCP - [facility]2Team MemberRelationshipSpecialtyStart DateEnd Date Benji Rosa MD [address] [place] [address] PCP - GeneralInternal Medicine03/02/23 Benji Rosa MD [address] [place] [address] PCP - [facility]12/01/24Te MemberRelationshipSpecialtyStart DateEnd Benji Rosa MD [address] [place] [address] [facility] - [facility] Benji Rosa MD [address] [place] [address] PCP - [facility]12/01/24Te MemberRelationshipSpecialtyStart DateEnd Benji Rosa MD [address] [place] [address] PCP - [facility]03/02/23 Benji Rosa MD [address] [place] [address] PCP - [facility]12/01/24Te MemberRelationshipSpecialtyStart DateEnd Benji Rosa MD [address] [place] [address] PCP - [facility]03/02/23 Benji Rosa MD [address] [place] [address] PCP - [facility]12/01/24Te MemberRelationshipSpecialtyStart DateEnd Benji Rosa MD [address] [place] [address] PCP - [facility]03/02/23 Benji Rosa MD [address] [facility] [address] [place] [address] PCP - [facility]12/01/24Team MemberRelationshipSpecialtyStart DateEnd Date Benji Rosa MD [address] [facility] [address] [place] [address] PCP - GeneralInternal Medicine03/02/23 Benji Rosa MD [address] [facility] [address] [place] [address] PCP - [facility]12/01/24 Reason for Visit (unrecogniz ed section and content) ReasonCommentsHypertensionDiabetesReasonCommentsMedicare Annual Wellness Visit SubsequentPt states he has had a productive cough x 2 weeksLook at small sore on leg/possible bug bite left lower legReasonCommentsMed RefillReasonOnset Date CommentsMed Bezqvg924ReasonCommentsDiabetesHypertensionSinusitisReason CommentsDiabetesHypertensionResultsLabs 11/2024ReasonCommentsDiabetesSinusitis ReasonCommentsMedicare Annual Wellness Visit Subsequent FOR RECORDS PERTAINING TO PATIENTS WHO ARE [...] BE BASED ON THE PRIMARY CLINICAL RECORDS. [employer] provides no warranty or guarantee of the accuracy or completeness of information in this document.
--- OUTSIDE RECORDS SUMMARY | 2025-08-16 07:02 | XMS_ITS | Clinical Summary ---
Author Organization [facility] Address [address] [place] [address] Care Team Providers Care R[employer]ure Press Operator Name Role Phone Benji Rosa MD Primary Care Provider [phone] Allergies Active AllergyReactionsCriticalityNoted AohzKryycwvqGuyivdjosVpweFqd78/21/2019 Blood in stool RqrhlcoytxqPnpsTyr28/21/2019 Medications MedicationSigDispense QuantityRefillsLast FilledStart DateEnd DateStatus rosuvastatin (Crestor) 10 mg tablet Indications:Coronary artery disease, unspecified vessel or lesion type, unspecified whether angina present, unspecified whether [place] or transplanted heartTake 1 tablet (10 mg) by mouth in the evening. 90 tablet ctive SITagliptin phos-metformin (Janumet) 50-500 mg tablet Take 1 tablet by mouth with breakfast and with evening meal.Active potassium chloride CR (Klor-Con M10) 10 mEq ER tablet Take 10 mEq by mouth in the morning. Do not crush or chew.Active traZODone (Desyrel) 50 mg tablet Take 50 mg by mouth at bedtime.Active zolpidem (Ambien) 10 mg tablet Take by mouth if needed at bedtime for sleep.Active simvastatin (Zocor) 40 mg tablet Take 40 mg by mouth at bedtime.03/23/2023ctive Align 4 mg capsule Take 1 tablet by mouth in the morning.Active famotidine (Pepcid) 20 mg tablet Take 1 tablet by mouth in the morning.Active furosemide (Lasix) 20 mg tablet Indications:Essential hypertensionTAKE 1 TABLET EVERY MORNING 90 tablet ctive dilTIAZem ER (Tiazac) 240 mg 24 hr capsule Indications:Essential hypertensionTAKE 1 CAPSULE EVERY MORNING 90 capsule 5Active metFORMIN XR (Glucophage-XR) 500 mg 24 hr tablet Take 1,000 mg by mouth daily with evening meal.Active Eliquis 5 mg tablet Indications:Paroxysmal atrial fibrillation (CMS/HCC)TAKE 1 TABLET IN THE MORNING AND AT BEDTIME 180 tablet 5Active lisinopril 5 mg tablet Indications:Essential hypertensionTAKE 1 TABLET BY MOUTH EVERY DAY IN THE MORNING 90 tablet 5Active rosuvastatin (Crestor) 40 mg tablet Indications:Hyperlipidemia, unspecified hyperlipidemia typeTAKE 1 TABLET BY MOUTH EVERY DAY IN THE MORNING 90 tablet 5Active Farxiga 10 mg Indications:PVD (peripheral vascular disease)TAKE 1 TABLET BY MOUTH EVERY DAY IN THE MORNING 90 tablet 5Active Active Problems ProblemNoted DateDiagnosed DateClass 3 severe obesity due to excess calories with serious comorbidity and body mass index (BMI) of40.0 to 44.9 in adult 12/09/2023olon kvrjfl05HemorrhoidsHistory of esophageal iujzjl40History of vetoblyszkhxzz70/03/2023 04/26/2023ilateral oeeeayog23uzzing in ear03/23/2023 04/26/2023arpal tunnel qiijmrma60Seasonal allergic rhinitis iverticular disease of colonEdema of lower cibzrnqyh76Equinus contracture of ankle03/23/2023 04/26/2023History of coronary artery bypass ctkkbak30Otitis gcluzbn43Sensorineural hearing loss, smxsgyjta63/30/2023 04/26/2023aroxysmal atrial bxdushxdefct89Stage 3a chronic kidney yeclqyk20therosclerotic heart disease of [place] coronary artery with other forms of angina dfbriswr83Type 2 diabetes mellitus with other circulatory wdxrorjeifami38ure ayrrlnmplgfnzcibcsti03/30/202307/03/2023Obstructive sleep apnea syndrome Nonrheumatic mitral valve qzrmmflxgocsj83/16/2023 Overview (03/09/2023): Added automatically from request for surgery [id number] Vvgccvgtp83/09/6795Cksfditibvqjrj34/09/2023drenal vkdfalvobfxcx67/09/2023KD (chronic kidney disease), stage III11/02/2022iabetes nblenkjd71/09/2023Former viromp3111/02/2022astroesophageal reflux myeiusk5811/02/20225813Jadpmndq56/09/2023Heart lovvmdn5811/02/2022Heart pesldo9811/02/2022High nwdinlukkad45/09/2023High creatinine 11/02/2022History of colon dmnzgr2711/02/2022History of diverticulitis of colon 11/02/2022Increased frequency of jfhhcjzhy16/09/2023Loop diuretic causing adverse effect in therapeutic use11/02/2022Microscopic jpwtmbnxu17/09/2023 Xdpqrxpf05/09/2023Rectal ngicpdkwhj88/09/2023Sleep apnea11/02/2022 Overview (11/02/2022): uses CPAP uses CPAP Urinary bldpzyrmmjad53/09/2023Urinary lydbepj7611/02/2022ericardial effusion without cardiac mwuoxkspd58/15/2019Coronary arteriosclerosis in [place] artery 03/22/2019Atrial pzvechqgqcxr99/29/7326Zljrwio91/29/2019Atrial flutter with rapid ventricular zjtdjcdo75bnormal stress test12/16/2018Left main coronary artery pezcufl28hest pain12/14/2018Gastro- esophageal reflux disease without jljjuvgkqac57iverticulitis of colonersistent kzbavnve08 Encounters DateTypeDepartmentCare MmpeCgmownpzxps22/08/2025 1:26 PM EDT - 08/01/2025 11:59 PM EDTHospital Encounter [facility] [address] [place] [address] Nonrheumatic mitral valve regurgitation Discharge Disposition: Home or Self Care (01)06[facility] [address] [place] [phone] Romina Sandoval MD PVD (peripheral vascular disease)05/27/2025[facility] [address] [place] [phone] Romina Sandoval MD Essential hypertension; Hyperlipidemia, unspecified hyperlipidemia typefrom Last 3 Months Family History Medical HistoryRelationNameCommentsDiabetesFatherCoronary artery diseaseMother RelationNameStatusCommentsFatherMother Social History Tobacco UseTypesPacks/DayYears UsedDateSmoking Tobacco: FormerCigarettes Smokeless Tobacco: Never Tobacco Cessation:Counseling Given: Not Answered Alcohol UseStandard Drinks/WeekCommentsYes0 (1 standard drink = 0.6 oz pure alcohol)occasionalUT Safety & EnvironmentAnswerDate RecordedFear of Current or Ex-PartnerNot on file12/16/2023Emotionally AbusedNot on file12/16/2023hysically AbusedNot on file12/16/2023Sexually AbusedNot on file12/16/2023hysically or Sexually AbusedNot on file12/16/2023Sex and Gender InformationValueDate Recorded Sex Assigned at IjjmfQinv00/10/2025 9:15 AM EDTLegal WshHqwp1904/22/2022 9:09 PM EDTGender UliaoxoiDwne62/10/2025 9:15 AM EDTSexual OrientationDon't know 07/04/2025 9:15 AM EDT Last Filed Vital Signs Vital SignReadingTime TakenCommentsBlood Czatqkhj421/ 10:07 AM EST Cdnsl8789/04/2025 10:07 AM ESTTemperature--Respiratory Ozpo303403/24/2023 12:17 PM EDTOxygen Songwgyuqq45%12/26/2024 10:07 AM ESTInhaled Oxygen Concentration-- Skbmlu010 kg (262 lb)12/26/2024 10:07 AM FNFAhbtra672.6 cm (5' 6 )12/26/2024 10:07 AM ESTBody Mass Index42.29012/26/2024 10:07 AM EST Plan of Treatment Health MaintenanceDue DateLast DoneCommentsCT Qxwyftjeeekp1957Diabetes: Hemoglobin A1C1957FIT-DNA1957FIT1957FOBT1957Medicare Annual Wellness (AWV)1955 4388Ntxiieinsbdyh1957Diabetes: Retinopathy Ennuvhltb92/31/1967Depression Hqkukaqfk54/31/1969Pneumococcal Vaccine: 50+ Years (1 of 2 - PCV)1976Adult Fmrxawg4210/24/1979Zoster Vaccines (1 of 2) 2007Fall Risk Zfekgjmls60/31/2022COVID-19 Vaccine (5 - season) , 08/21/2022, 10/23/2021, Additional history existsInfluenza Vaccine (#1)/, 08/03/2023, 08/21/2022, Additional history existsDiabetes: Urine Protein Xdexvukgs09/28/186960/, 12/09/2023 Krvkaxtpous84/13/203302/3Colorectal Cancer Kksfrhtuk52/13/2033HIB Vaccines Aged OutNo longer eligible based on patient's age to complete this topicHPV VaccinesAged OutNo longer eligible based on patient's age to complete this topic IPV VaccinesAged OutNo longer eligible based on patient's age to complete this topicMeningococcal B VaccineAged OutNo longer eligible based on patient's age to complete this topicMeningococcal VaccineAged OutNo longer eligible based on patient's age to complete this topicRotavirus VaccinesAged OutNo longer eligible based on patient's age to complete this topic Procedures Procedure NamePriorityDate/TimeAssociated DiagnosisCommentsCOMPLETE ECHO (TTE) W/ IMAGING XHLXWNjypqaf60/08/2025 2:15 PM EDT Nonrheumatic mitral valve regurgitation from Last 3 Months Results * COMPLETE ECHO (TTE) W/ IMAGING AGENT (08/01/2025 2:15 PM EDT)Anatomical Region LateralityModalityOtherSpecimen (Source)Anatomical Location / Laterality Collection Method / VolumeCollection TimeReceived Time08/01/2025 1:41 PM EDT Narrative 08/01/2025 5:38 PM EDT 1 1 [facility] Heart Station [address] [place] [address] [phone] (fax) Echocardiogram-[facility] Name: CELESTINO PATTON Study Date: 08/01/2025 01:41 PM B/P: / HR: Date of : 1955 Location: [facility] Height: 66 in. Age: 69 year(s) Patient [...] No pericardial effusion. Procedure Staff Reading Group: [facility] [place] Purser: Deven Fernández RDCS ??Ordering Physician: Romina Sandoval MD ?? Procedure Note Efraín Lindo MD - 08/01/2025 1 1 [facility] [address] [place] [address] [phone] (fax) Echocardiogram-[facility] Name: CELESTINO PATTON Study Date: 08/01/2025 01:41 PM B/P: / HR: Date of : 1955 Location: [facility] Height: 66 in. Age: 69 year(s) Patient [...] No pericardial effusion. Procedure Staff Reading Group: [facility] [place] Purser: Deven Fernández RDCS Ordering Physician: Romina Sandoval MD Authorizing ProviderResult TypeResult StatusEhab Sandoval [facility] ECHO PROCEDURES Final Result from Last 3 [place] [address] Care Teams Team MemberRelationshipSpecialtyStart DateEnd Date Benji Rosa MD [address] [facility] [address] [place] [address] PCP - Cavkclu22/20/22
--- OUTSIDE RECORDS SUMMARY | 2025-08-16 07:02 | XMS_ITS | Encounter Summary ---
Author Organization [facility] Address [address] [place] [address] Care Team Providers Care County Court Judge Name Role Phone Benji Rosa MD Primary Care Provider [phone] Benji Rosa MD Unavailable [phone] Encounter Details DateTypeDepartmentCare Team (Latest Contact Info)Vulklgvwqnk24/14/2025bstract [facility] [place] [facility] [address] [place] [address] Benji Rosa MD [address] [place] [address] Social History Tobacco UseTypesPacks/DayYears UsedDateSmoking Tobacco: FormerCigarettes1.550 Started: 1966Smokeless Tobacco: [id number] Health LiteracyAnswerDate RecordedHow often do you need [...] relatives?Once a week05/06/2025How often do you attend faith or congregation services?Never 05/06/2025Do you belong to any clubs or organizations such as faith groups, unions, fraTripeese or athletic groups, or school groups?Yes05/06/2025How often do you attend meetings of the clubs or organizations you belong to?Never05/06/2025 Are you , , , , never , or living with a partner?Dnwlbtl0105/06/2025UDIT-CAnswerDate RecordedQ1: How often do you have a [...] heating?Not very hard05/06/2025PHQ-2AnswerDate RecordedPatient Health Questionnaire-2 Score0 08/06/2025[facility] - Occupational Stress QuestionnaireAnswerDate RecordedDo you feel stress - tense, restless, nervous, or anxious, or unable to sleep at night because yourmind is troubled all the time - these days?Patient kfsqcdaz24/13/2025Exercise Vital SignAnswerDate RecordedOn average, how many days [...] were you homeless or living in a mcfp (including now)?No05/06/2025Sex and Gender InformationValueDate RecordedSex Assigned at LdeovJzqo37/08/2024 10:29 PM ESTLegal DqfGddo2101/06/2023 6:51 PM EDTGender UxvlcnrfCqpk35/29/2024 7:37 AM EDTSexual OrientationNot on filedocumented as of this encounter Plan of Treatment DateTypeDepartmentCare Team (Latest Contact Info)Dcsierrpupa50/09/2026 10:00 AM ESTOffice Visit [facility] [place] [facility] [address] [place] [address] Benji Rosa MD [address] [place] [address] documented as of this encounter Visit Diagnoses Not on filedocumented in this encounter Care Teams Team MemberRelationshipSpecialtyStart DateEnd Benji Rosa MD [address] [place] [address] PCP - GeneralInternal Medicine03/02/23 Benji Rosa MD [address] [facility] [address] [place] [address] PCP - [facility] 12/01/24documented as of this encounter
--- OUTSIDE RECORDS SUMMARY | 2025-08-16 07:02 | XMS_ITS | Clinical Summary ---
Author Organization [facility] Healthcare Address [address] [place] [address] Care Team Providers Care Rate Supervisor Name Role Phone Benji Rosa MD Primary Care Provider [phone] Benji Rosa MD Unavailable [phone] Allergies Active AllergyReactionsCriticalityNoted DateCommentsMeloxicamUnknown,RashLow 12/15/2018 Other Reaction(s): rectal bleeding Blood in stool PenicillinsRash,KjjizysIuh08/21/2019 Other Reaction(s): Drug rash Medications MedicationSigDispense QuantityRefillsLast FilledStart DateEnd DateStatus dilTIAZem ER (Tiazac) 240 MG 24 hr capsule Take 240 mg by mouth in the morning.02/03/2023ctive famotidine (Pepcid) 20 MG tablet Take 1 tablet by mouth in the morning.Active furosemide (Lasix) 20 MG tablet Take 20 mg by mouth in the morning.02/03/2023ctive latanoprost (Xalatan) 0.005 % ophthalmic solution Administer 1 drop into both eyes at rqlihdu6411/04/2023ctive apixaban (Eliquis) 5 MG tablet Indications:Atrial fibrillation, unspecified type (HCC)Take 1 tablet (5 mg) by mouth in the morning and 1 tablet (5 mg) before bedtime. 60 tablet ctive potassium chloride CR (Klor-Con) 10 MEQ ER tablet Indications:Microscopic hematuriaTAKE 1 TABLET DAILY WITH FOOD 90 tablet 311/05/2024Active Farxiga 10 MG Take 10 mg by mouth in the morning.Active rosuvastatin (Crestor) 40 MG tablet Take 40 mg by mouth in the morning.Active lisinopril 5 MG tablet Take 5 mg by mouth in the morning.Active dorzolamide-timolol (Cosopt) 2-0.5 % ophthalmic solution Administer 1 drop into both eyes in the morning and 1 drop before bedtime. 5Active zolpidem (Ambien) 10 MG tablet Indications:Persistent insomniaTake 1 tablet (10 mg) by mouth at bedtime 90 tablet 515Active traZODone (Desyrel) 50 MG tablet Indications:Persistent insomniaTAKE 1/2 TABLET AT BEDTIME 45 tablet 5Active Active Problems ProblemNoted DateDiagnosed DateClass 3 severe obesity due to excess calories with serious comorbidity and body mass index (BMI) of40.0 to 44.9 in adult 12/09/20239228Rfjmztnnyuk86/ilateral plymavkq90/30/2023uzzing in ear 03/23/2023arpal tunnel jzjmgtyf75/30/2023iverticular disease of colon 03/23/2023Edema of lower ocoquzodf30/30/2023Equinus contracture of ankle 03/23/2023History of coronary artery bypass qjnneeh9303/23/2023therosclerotic heart disease of [place] coronary artery with other forms of angina pectoris 03/23/2023Left main coronary artery bxacrcs1603/23/2023Obstructive sleep apnea /30/2023Otitis xnfgtwe1803/23/2023aroxysmal atrial fibrillation 03/23/2023ure sknwdjzlngkaycofgemq75/30/2023hronic udyshogq18/30/2023Seasonal allergic fwsrmohi17/30/2023Sensorineural hearing loss, /30/2023Stage 3a chronic kidney kkbrbth4103/23/2023Type 2 diabetes mellitus with other circulatory vnbvqhevesyhh29/30/2023Nonrheumatic mitral valve regurgitation 03/09/2023 Overview (12/07/2023): Added automatically from request for surgery [id number] Microscopic gqlhptoxr77/09/2023History of colon jvehdm6111/02/2022laucoma 11/02/2022Former qhxclg8411/02/20223400Sqiuznrmp63/09/5650Jlyhieawyyfhat93/09/2023 Adrenal aameqhpewwlgw15/09/2023ericardial effusion without cardiac tamponade ([facility])08/08/2019Abnormal stress test12/16/2018Gastro-esophageal reflux disease without vnrqodajbct50/21/2011Diverticulitis of colon07/16/2008Persistent xjdwmeej39/22/2008 Resolved Problems ProblemNoted DateDiagnosed DateResolved DateCoronary arteriosclerosis in [place] utvoxo53 Encounters DateTypeDepartmentCare HcbvIpvimysbteq05/14/2025bstract [facility] [address] [facility] [address] [place] [phone] Benji Rosa MD 08/06/2025 9:30 AM EDTOffice Visit [facility] [address] [facility] [address] [place] [phone] Benji Rosa MD Routine general medical examination at health care facility (Primary Dx); ACP (advance care planning); Type 2 diabetes mellitus with other circulatory complications (HCC); Flu vaccine need; History of smoking 30 or more pack years; Screening for AAA (abdominal aortic aneurysm); Screening for viral lfqdkce2308/06/2025amboo flowsheet [facility] [address] [facility] [address] [place] [address] Benji Rosa MD 08/06/20250768Oaldim49/26/2025Refill [facility] [address] [facility] [address] [place] [address] Benji Rosa MD Persistent ffmgxoyl08/26/2025Refill [facility] [address] [facility] [address] [place] [phone] Emperatriz Miranda PA Persistent ngklhypv86/22/2025Patient Outreach [facility] [address] [place] [address] Amalia Richards LPN from Last 3 Months Immunizations ImmunizationAdministration DatesNext DueInfluenza, High Dose Seasonal, Preservative Free08/06/2025Influenza, High-dose Seasonal, Quadrivalent, Preservative Free08/23/2024Influenza, Rbymclwwxnn99/10/2023Influenza, injectable, MDCK, preservative free, rkhmvzfyaydj25/28/2022Influenza, injectable, MDCK, wfutjsnnyaud75/31/2019Influenza, injectable, quadrivalent 10/30/2020Influenza, injectable, quadrivalent, preservative free08/11/2021, 08/17/2016,07/16/2015Influenza, seasonal, intradermal, preservative free 08/25/2018,08/05/2017 Family History Medical HistoryRelationNameCommentsCOPDFatherDiabetesFatherHypertensionFather Heart diseaseMotherHypertensionMotherKidney diseaseMotherMental illnessMother SeizuresMotherRelationNameStatusCommentsFatherDeceasedMotherDeceased Social History Tobacco UseTypesPacks/DayYears UsedDateSmoking Tobacco: FormerCigarettes1.550 Started: 1966Smokeless Tobacco: Never Tobacco Cessation:Counseling Given: Not Answered B1300 Health LiteracyAnswerDate RecordedHow often do you need to have someone help you when you read instructions, pamphlets, or other written material from your doctor or pharmacy?Nyelmf6205/06/2025Humiliation, Afraid, Rape, and Kick questionnaireAnswerDate RecordedWithin the [...] relatives?Once a week05/06/2025How often do you attend shinto or yazidism services?Never05/06/2025Do you belong to any clubs or organizations such as shinto groups, unions, fraternal or athletic groups, or school groups? Yes05/06/2025How often do you attend meetings of the clubs or organizations you belong to?Never05/06/2025re you , , , , never , or living with a partner?Udalcop3005/06/2025UDIT-CAnswerDate RecordedQ1: How often do you have a [...] and heating?Not very hard05/06/2025PHQ-2AnswerDate RecordedPatient Health Questionnaire-2 Hqued983[facility] [place] [facility] Occup[facility] - Occupational Stress QuestionnaireAnswerDate RecordedDo you feel stress - tense, restless, nervous, or anxious, or unable to sleep at night because your mind is troubled all the time - these days?Patient xettenui39/13/2025Exercise Vital SignAnswerDate RecordedOn average, how many days [...] were you homeless or living in a assisted (including now)?No05/06/2025Sex and Gender InformationValueDate RecordedSex Assigned at KfdzxRdyr59/08/2024 10:29 PM ESTLegal XqjGoar0901/06/2023 6:51 PM EDTGender HxogfsoxCbuc18/29/2024 7:37 AM EDTSexual OrientationNot on file Last Filed Vital Signs Vital SignReadingTime TakenCommentsBlood Nnfosuxq247/6808/06/2025 9:28 AM EDT Ietjf689408/06/2025 9:28 AM EDTTemperature--Respiratory Rate--Oxygen Myfwvyqyab90% 08/06/2025 9:28 AM EDTInhaled Oxygen Concentration--Zvxrdl875 kg (266 lb) 08/06/2025 9:28 AM DPVZdufct370.9 cm (5' 6.5 )08/06/2025 9:28 AM EDTBody Mass Index42.291 9:28 AM EDT Plan of Treatment DateTypeDepartmentCare Team (Latest Contact Info)Rkseruhrosq69/09/2026 10:00 AM ESTOffice Visit [facility] [address] [facility] [address] [place] [phone] Benji Rosa MD [address] [facility] [address] [place] [address] Health MaintenanceDue DateLast DoneCommentsCT Ikwoarxocksl1957FIT-DNA 1957FIT1957FOBT1957Lung Cancer Screening Shared Decision Lgeybx05 1955 3451Jdqwqzypdxjvm1957Pneumococcal Vaccine: 65+ Years (1 of 2 - PCV)1976Diabetes: Hemoglobin A1C, 05/07/2025, 04/20/2025, Additional history existsDiabetes: Urine Protein Rfddeptsp51/28/2026 12/22/2024, 12/09/2023, 01/08/2022, Additional history existsMedicare Annual Wellness (AWV), 08/23/2024iabetes: Retinopathy Screening , 01/03/2024, 03/09/2023, Additional history exists Vatwjodagwe43, 12/07/2022, 05/24/2020, Additional history existsColorectal Cancer Dkcbwpbzi38/13/2033Influenza LvoiefpIannhzhyg12/13/2025, 08/23/2024, 08/03/2023, Additional history exists Procedures Procedure NamePriorityDate/TimeAssociated DiagnosisCommentsPOCT GLYCATED HEMOGLOBIN, HQXOTEzgliur00/13/2025 9:54 AM EDT Type 2 diabetes mellitus with other circulatory complications (HCC) MICROALBUMIN / CREATININE URINE MRJMYZzuvuqr78/28/2025 11:48 AM EST Type 2 diabetes mellitus with other circulatory complications (HCC) DIABETIC RETINOPATHY SCREENING - OU - BOTH ONLVRivszrw09/07/2025 TRROUSHDKKSInllyva28/13/2023 12:00 PM EST from Last 3 Months or Most Recently Relevant to Health Maintenance Results * POCT Glycated hemoglobin, total (08/06/2025 9:54 AM EDT)ComponentValueRef RangeTest MethodAnalysis TimePerformed AtPathologist SignatureHemoglobin A1C 6.5Specimen (Source)Anatomical Location / LateralityCollection Method / Volume Collection TimeReceived BruaCkbue08/13/2025 9:54 AM EDT Narrative Authorizing ProviderResult TypeResult StatusBenji Rosa MDPOINT OF CARE TEST ENTER/EDIT ORDERABLESFinal Result * (ABNORMAL) Microalbumin / creatinine urine ratio (12/22/2024 11:48 AM EST) ComponentValueRef RangeTest MethodAnalysis TimePerformed AtPathologist SignatureCREATININE, RANDOM RFZBG6056 - 320 mg/dLQUESTALBUMIN, URINE2.2See Note: mg/dLQUESTComment: Reference Range: Reference Range Not established ALBUMIN/CREATININE RATIO, RANDOM URINE54(H)<30 mg/g creatQUESTComment: The ADA defines abnormalities in albumin excretion as follows: Albuminuria Category ?Result (mg/g creatinine) Normal to Mildly increased <30 Moderately increased ? 30-299 Severely increased > OR = 300 The ADA recommends that at least two of three specimens collected within a 3-6 month period be abnormal before considering a patient to be within a diagnostic category. Specimen (Source)Anatomical Location / LateralityCollection Method / Volume Collection TimeReceived TimeUrineUrine specimen obtained by clean catch procedure / Bwaqjvp6712/22/2024 11:48 AM EST12/22/2024 11:48 AM EST Narrative [facility] - 12/23/2024 12:56 PM EST FASTING:NO FASTING: NO Resulting Agency Comment Performing Organization Information ?Site ID: QPT ?Name: [facility] ?Address: [address] [place] [id number] ?Director: Rodrigo Prescott MD Authorizing ProviderResult TypeResult StatusBenji MENSAH URINE ORDERABLESFinal ResultPerforming OrganizationAddressCity/State/ZIP CodePhone Number [facility] * Diabetic Retinopathy Screening - OU - Both Eyes (10/31/2024)ComponentValueRef RangeTest MethodAnalysis TimePerformed AtPathologist SignatureRESULTSndr Anatomical RegionLateralityModalityHeadOtherSpecimen (Source)Anatomical Location / LateralityCollection Method / VolumeCollection TimeReceived Time 10/31/2024 Narrative Authorizing ProviderResult TypeResult StatusBenji Rosa MDOPH PHOTOGRAPHY Final Result * Colonoscopy (12/07/2022 12:00 PM EST)Anatomical RegionLateralityModality EndoscopySpecimen (Source)Anatomical Location / LateralityCollection Method / VolumeCollection TimeReceived Time12/07/2022 12:00 PM EST Narrative 12/07/2022 12:00 PM EST PERFORMED AT [facility] LOCATION:[id number] Abnormal Procedure Note CONVERSION, GENERIC - 03/10/2023 PERFORMED AT [facility] LOCATION:[id number] Abnormal Authorizing ProviderResult TypeResult StatusEmperatriz Briseno Hemmartha PAENDOSCOPY PROCEDURE ORDERABLESFinal Result from Last 3 Months or Most Recently Relevant to Health Maintenance Insurance MemberSubscriberPlan / Payer (Effective 2015-Present)Name:Donovan Patton Relation to Subscriber:SpouseName:LULU PATTON Date of :1953 Address: [address] [place] [id number] Payer ID:Not on file Group ID:[id number] Type:Not on file Address: [facility] [id number] [place] [address] [place] [address] Care Teams Team MemberRelationshipSpecialtyStart DateEnd Date Benji Rosa MD [address] [facility] [address] [place] [address] [facility] - [facility]23 Benji Rosa MD [address] [address] PCP - [facility]12/01/24
--- OUTSIDE RECORDS SUMMARY | 2025-08-16 07:02 | XMS_ITS | Encounter Summary ---
Author Organization [facility] Address [address] [place] [address] Care Team Providers Care Certification Technician Name Role Phone Benji Rosa MD Primary Care Provider [phone] Benji Rosa MD Unavailable [phone] Encounter Details DateTypeDepartmentCare Team (Latest Contact Info)Ztfcltxohsd02/13/2025amboo flowsheet [facility] [address] [place] [address] [place] [address] Benji Rosa MD [address] [place] [address] [place], [place] [id number] Social History Tobacco UseTypesPacks/DayYears UsedDateSmoking Tobacco: FormerCigarettes1.550 Started: 1966Smokeless Tobacco: [id number] Health LiteracyAnswerDate RecordedHow often do you need [...] relatives?Once a week05/06/2025How often do you attend samaritan or faith services?Never 05/06/2025Do you belong to any clubs or organizations such as samaritan groups, unions, [employer] or athletic groups, or school groups?Yes05/06/2025How often do you attend meetings of the clubs or organizations you belong to?Never05/06/2025 Are you , , , , never , or living with a partner?Hyyzkad3305/06/2025UDIT-CAnswerDate RecordedQ1: How often do you have a [...] heating?Not very hard05/06/2025PHQ-2AnswerDate RecordedPatient Health Questionnaire-2 Score0 08/06/2025Fin[facility] [place] of Occupational Health - Occupational Stress QuestionnaireAnswerDate RecordedDo you feel stress - tense, restless, nervous, or anxious, or unable to sleep at night because yourmind is troubled all the time - these days?Patient ystgabxk77/13/2025Exercise Vital SignAnswerDate RecordedOn average, how many days [...] were you homeless or living in a residential (including now)?No05/06/2025Sex and Gender InformationValueDate RecordedSex Assigned at MhblkWodw31/08/2024 10:29 PM ESTLegal OdhQlnz9301/06/2023 6:51 PM EDTGender VpdxufghSprn68/29/2024 7:37 AM EDTSexual OrientationNot on filedocumented as of this encounter Functional Status * Over the past 2 weeks, how often have you been bothered by any of the following problems?QuestionAnswerDate of AssessmentAuthorLittle interest or pleasure in doing thingsNot at all08/06/2025 9:00 AM Rocio Johnson LPN Feeling down, depressed, or hopelessNot at all08/06/2025 9:00 AM Rocio Johnson LPNPatient Health Questionnaire-2 Bdyhc228 9:00 AM Rocio Johnson LPN documented as of this encounter Plan of Treatment DateTypeDepartmentCare Team (Latest Contact Info)Ndclyifyywm89/09/2026 10:00 AM ESTOffice Visit [facility] [place] [facility] [address] [place] [address] [place] [address] Benji Rosa MD [address] [place] [address] [place] [address] documented as of this encounter Visit Diagnoses Not on filedocumented in this encounter Care Teams Team MemberRelationshipSpecialtyStart DateEnd Date Benji Rosa MD [address] [place] [address] [place] [address] PCP - GeneralInternal Medicine03/02/23 Benji Rosa MD [address] [place] [address] [place] [address] PCP - [facility]12/01/24documented as of this encounter
== END 2025-08-16 06:58 | disposition home or self-care (01) ==
LOC: US 06:59
PROVIDERS: PCP Internal Medicine; Visit Provider Internal Medicine
DX: R91.8 Other nonspecific abnormal finding of lung field (principal); Z87.891 Personal history of nicotine dependence; K80.20 Calculus of gallbladder without cholecystitis without obstruction
CPT/HCPCS: 71271; 76706